=== PATIENT | female | born 1945 | race Caucasian/White ===

== ENCOUNTER → 2019-11-19 12:42 | Outpatient (CLI) | payer MEDICARE, SELFPAY ==
--- NOTE | ~2019-11-19 | MM_ITS ---
EXAMINATION: MM screening [facility] BI w johnie HISTORY: Screening mammogram TECHNIQUE: Craniocaudal and mediolateral oblique 3-D tomosynthesis images were obtained and synthetic 2-D images were generated. CAD analysis was submitted and interpreted. COMPARISON: 09/15/2018, 08/15/2017, 07/18/2016 BREAST PARENCHYMAL COMPOSITION: The breasts are almost entirely fatty. FINDINGS: RIGHT BREAST: A possible mass is present in the posterior third of the upper inner breast best apprec iated 9 cm from the nipple. LEFT BREAST: There is no evidence of suspicious mass, calcification, or architectural distortion to s uggest malignancy. There has been no significant interval change. IMPRESSION: 1. Possible right breast mass. 2. Additional mammographic views and possible breast ultrasound are recommended. BI-RADS Category 0: Incomplete: Needs additional imaging evaluation. Reviewed, dictated and finalized at location A. ING TECHNICIAN IMPRESSION: 1. Possible right breast mass. 2. Additional mammographic views and possible breast ultrasound are recommended . BI-RADS Category 0: Incomplete: Needs additional imaging evaluation.
== END ==
PROVIDERS: PCP Family Medicine; Visit Provider Obstetrics & Gynecology
DX: Z12.31 Encounter for screening mammogram for malignant neoplasm of breast (principal); R92.8 Other abnormal and inconclusive findings on diagnostic imaging of breast
CPT/HCPCS: 77063; 77067

== ENCOUNTER → 2019-12-04 08:50 | Outpatient (CLI) | payer MEDICARE, SELFPAY ==
--- NOTE | ~2019-12-04 | MMUS_ITS ---
EXAMINATION: MM diagnostic mammo unilat RT, US breast RT limited HISTORY: Possible mass in posterior third of upper inner right breast on 11/19/2019 screening mammogra m examination TECHNIQUE: Additional 3-D tomosynthesis images of right breast were performed and synthetic 2-D image s were generated. CAD analysis was submitted and interpreted. High resolution upper inner quadrant ri t breast ultrasound was performed. COMPARISON: 08/15/2017 bilateral digital screening mammogram FINDINGS: MAMMOGRAPHIC FINDINGS: An approximately 2.7 mm ill-defined focal area of contiguous small linear densities is noted posterio rly in the upper inner quadrant of the right breast. Ultrasound correlation is recommended. ULTRASOUND: There is no sonographic correlate for the 2.7 mm ill-defined area of contiguous small linear densitie s noted posteriorly in the upper inner quadrant of the right breast. Circumscribed 4.4 x 8.4 x 4.6 mm uniformly hyperechoic lesion is noted superficially in the right padmini ast at 2:00 9 cm from the nipple, consistent with a benign lipoma. IMPRESSION: 1. No mammographic evidence of malignancy 2. 6 month follow up diagnostic right mammogram is recommended BIRADS 3: Probably benign Reviewed, dictated and finalized at location A. D SERVICE ENGINEER IMPRESSION: 1. No mammographic evidence of malignancy 2. 6 month follow up diagnostic right mammogram is recommended BIRADS 3: Probably benign
== END ==
PROVIDERS: Visit Provider Obstetrics & Gynecology
DX: R92.8 Other abnormal and inconclusive findings on diagnostic imaging of breast (principal)
CPT/HCPCS: 76642; 77065

== ENCOUNTER → 2020-07-08 09:15 | Outpatient (CLI) | payer MEDICARE, SELFPAY ==
--- NOTE | ~2020-07-08 | MM_ITS ---
EXAMINATION: MM diagnostic [facility] RT w johnie HISTORY: Follow-up right breast asymmetry TECHNIQUE: Additional 3-D tomosynthesis images of the right breast were performed and synthetic 2-D i mages were generated. CAD analysis was submitted and interpreted. COMPARISON: Comparison to multiple prior studies sequentially, with oldest reviewed study dated 02/2015. BREAST PARENCHYMAL COMPOSITION: Breast composition is almost entirely fatty. FINDINGS: There are no suspicious masses, calcifications or architectural distortion in the right padmini ast to suggest malignancy. IMPRESSION: 1. No mammographic evidence for malignancy in the right breast. 2. Routine yearly screening mammogram and regular clinical breast examination are recommended. BI-RADS Category 1: Negative Reviewed, dictated and finalized at location A. IMPRESSION: 1. No mammographic evidence for malignancy in the right breast. 2. Routine yearly screening mammogram and regular clinical breast examination a re recommended. BI-RADS Category 1: Negative
== END ==
PROVIDERS: PCP Family Medicine; Visit Provider Obstetrics & Gynecology
DX: R92.8 Other abnormal and inconclusive findings on diagnostic imaging of breast (principal)
CPT/HCPCS: 77061; 77065; G0279

== ENCOUNTER → 2021-10-13 13:17 | Outpatient (CLI) | payer MEDICARE, SELFPAY ==
--- NOTE | ~2021-10-13 | MM_ITS ---
EXAMINATION: MM screening [facility] BI w johnie HISTORY: Screening TECHNIQUE: Craniocaudal and mediolateral oblique 3-D tomosynthesis images were obtained and synthetic 2-D images were generated. CAD analysis was submitted and interpreted. COMPARISON: Comparison to multiple prior studies sequentially, with oldest reviewed study dated 06/30. BREAST PARENCHYMAL COMPOSITION: There are scattered areas of fibroglandular density. FINDINGS: There is no evidence of suspicious mass, calcification, or architectural distortion to sugg est malignancy in either breast. There has been no suspicious interval change. IMPRESSION: 1. No mammographic evidence of malignancy. 2. Recommend routine screening mammography in one year. BI-RADS Category 1: Negative Reviewed, dictated and finalized at location A. OR WINDOWS ENGINEER
== END ==
PROVIDERS: PCP Family Medicine; Visit Provider Obstetrics & Gynecology
DX: Z12.31 Encounter for screening mammogram for malignant neoplasm of breast (principal)
CPT/HCPCS: 77063; 77067

== ENCOUNTER → 2022-10-15 09:16 | Outpatient (CLI) | payer MEDICARE, SELFPAY ==
--- NOTE | ~2022-10-15 | MM_ITS ---
EXAMINATION: MM screening [facility] BI w johnie HISTORY: Screening mammogram TECHNIQUE: Craniocaudal and mediolateral oblique 3-D tomosynthesis images were obtained and synthetic 2-D images were generated. CAD analysis was submitted and interpreted. COMPARISON: 10/13/2021, 07/08/2020, 12/04/2019, 11/19/2019 BREAST PARENCHYMAL COMPOSITION: The breasts are almost entirely fatty. FINDINGS: No suspicious mass, calcification, or architectural distortion are identified in either padmini ast to suggest malignancy. There has been no suspicious interval change. IMPRESSION: 1. No mammographic evidence of malignancy. 2. Recommend routine screening mammography in one year. BI-RADS Category 1: Negative Reviewed, dictated and finalized at location A. RINTENDENT OPERATIONS DIVISION
== END ==
PROVIDERS: PCP Obstetrics & Gynecology; Visit Provider Family Medicine
DX: Z12.31 Encounter for screening mammogram for malignant neoplasm of breast (principal)
CPT/HCPCS: 77063; 77067

== ENCOUNTER → 2023-03-19 09:26 | Outpatient (CLI) | payer MEDICARE, SELFPAY ==
--- NOTE | ~2023-03-19 | MR_ITS ---
MRI of the brain Clinical History: Hallucinations Technique: Axial and sagittal T1-weighted images were acquired. These were followed by axial T2-weigh clari, diffusion weighted, gradient, and FLAIR images. Findings: There is no acute infarct, intracranial hemorrhage, or mass lesion. There are mild to moder ate chronic microvascular ischemic changes in the periventricular white matter bilaterally. Ventricles and subarachnoid spaces are minimally dilated. Orbits are unremarkable. Paranasal sinuses and mastoid air cells are clear. Major intracranial flow voids are intact. Sagittal midline structures are intact. IMPRESSION: No acute intracranial abnormality seen. Mild to moderate chronic microvascular ischemic changes. Reviewed, dictated and finalized at [facility].
== END ==
PROVIDERS: PCP Family Medicine; Visit Provider Family Medicine
DX: R44.3 Hallucinations, unspecified (principal)
CPT/HCPCS: 70551

== ENCOUNTER 2023-11-02 09:36 | Emergency (ER) | payer MEDICARE, SELFPAY ==
[2023-11-02 09:38] VITALS: BP 153/72; PULSE 80; RESP 16; TEMP 36.3; O2SAT 93
--- NOTE | 2023-11-02 09:46 | ECG_ITS ---
Measurements Intervals [place] Rate: 75 P: 58 VT: 170 QRS: 59 QRSD: 89 T: 53 QT: 379 QTc: 423 Interpretive Statements SINUS RHYTHM NO PREVIOUS ECG AVAILABLE FOR COMPARISON Electronically Signed On 11-02-2023 12:35:34 [employer] by Aki Elizabeth M.D.
--- NOTE | 2023-11-02 10:28 | ED.GENADULT ---
HPI - General Adult General Chief complaint: Unspecified Stated complaint: took 5 days of meds Time Seen by Provider: 11/02/23 09:38 History of Present Illness HPI narrative: 78-year-old female present to the emergency department for evaluation after taking 5 days worth of medications. Patient took 5 days of her morning meds because she felt that it was a good idea. Patient took 5 of her with Toprol mg, she also took vitamin D baby aspirin and centrum vitamin. Patient denies any complaints at this time. Patient did tell her daughter that she did this. Related Data Home Medications Medication Instructions Recorded Confirmed albuterol sulfate 90 mcg/actuation 1 puff inhalation Q4H PRN 03/05/23 09/17/23 aerosol inhaler fluticasone 250 mcg-salmeterol 50 1 inh inhalation BID 03/05/23 09/17/23 mcg/dose blistr powdr for inhalation (Advair Diskus) Allergies Allergy/AdvReac Type Severity Reaction Status Date / Time levofloxacin Allergy Unknown Other Verified 09/17/23 15:05 Review of Systems Review of Systems: All systems reviewed & are unremarkable except as noted in HPI and below PMFSH Past Medical History Medical History Chronic obstructive pulmonary disease, unspecified Disorder of bone density and structure, unspecified Essential (primary) hypertension Hyperlipidemia, unspecified Lewy body dementia Social History Social History Smoking status: Former smoker Alcohol intake: never Substance use: never Substance use type: does not use Lack of Transportation: No Lack of Food: Never True Current Housing: I Have Housing Concerned About Future Housing: No Difficulty Paying Gas/Electric Bills: No Difficulty Paying for Meds: No Currently Unemployed: YES Education: High School Diploma/GED Living arrangements: with family Occupation/Education: retired Gender identity (if verbalized by the patient): Female Sexual Orientation (if Verbalized by the Patient): Straight or Heterosexual Exam Narrative: APPEARANCE: Well appearing, no pain, no distress, well-nourished. HEAD: normocephalic, atraumatic. EYES: PERRLA/EOMI, conjunctivae clear. NOSE: Normal no drainage EARS:TMS clear with good light reflex. THROAT: Pharynx clear, no exudate. NECK: Supple. No adenopathy, no masses. RESPIRATORY: Airway patent, respirations nonlabored. Clear to auscultation bilaterally, no rales, rhonchi, wheezing. CARDIOVASCULAR: Regular rate and rhythm without murmurs rubs or gallops. ABDOMINAL: Soft, nontender, nondistended, normal bowel sounds MUSCULOSKELETAL: Moves all extremities. Strength/ROM intact, No edema, No calf tenderness. NEURO: Alert. Cranial nerves II through XII intact. Grossly intact SKIN: Warm, dry. Normal Color Course Course Emergency Course: 78-year-old female presenting to the ED for evaluation after taking multiple doses of her morning meds. Poison Control was consulted and they recommended observing for 3-6 hours. Patient was observed for 7 hours after time of ingestion. Patient states he will not dizzy again and was encouraged to find a solution to help secure the patient's meds. Vital Signs Vital signs: Vital Signs Temperature 97.4 F L 11/02/23 09:38 Pulse Rate 80 11/02/23 09:38 Respiratory Rate 16 11/02/23 09:38 Blood Pressure 153/72 H 11/02/23 09:38 Pulse Oximetry 93 11/02/23 09:38 Oxygen Delivery Room Air 11/02/23 09:38 Temperature 97.4 F L 11/02/23 09:38 Pulse Rate 66 11/02/23 13:53 Respiratory Rate 18 11/02/23 13:53 Blood Pressure 128/66 11/02/23 13:53 Pulse Oximetry 93 11/02/23 13:53 Oxygen Delivery Room Air 11/02/23 09:38 Medical Decision Making Vital Signs Vital Signs: Vital Signs Temperature 97.4 F L 11/02/23 09:38 Pulse Rate 80 11/02/23 09:38 Respiratory Rate 16 11/02/23 09:38 Blood Pressure
[2023-11-02 10:36] LABS: Basophils Percent Auto 0.9 % (0.2-1.2); Eosinophils Absolute Auto 0.3 K/mm3 (0-0.3); Eosinophils Percent Auto 7.3 % (0-4.4); Hematocrit 41.9 % (37.0-47.0); Hemoglobin 13.4 g/dL (12.0-15.0); Immature Granulocyte Absolute 0.01 K/mm3 (0.00-0.031); Immature Granulocyte Percent A 0.2 % (0-0.5); Lymphocytes Absolute Auto 0.85 K/mm3 (0.9-3.2); Lymphocytes Percent Auto 18.8 % (18.3-44.2); Mean Corpuscular Hemoglobin 32.4 pg (26-34); Mean Corpuscular Volume 101.2 fl (80-100); Mean Platelet Volume 10.6 fl (7.4-10.4); Monocytes Absolute Auto 0.6 K/mm3 (0.1-0.6); Monocytes Percent Auto 13.3 % (2.6-8.5); Neutrophils Absolute Auto 2.7 K/mm3 (1.3-6.7); Neutrophils Percent Auto 59.5 % (45.5-73.1); Platelet Count Result 151 k/mm3 (150-375); Red Blood Count 4.14 M/mm3 (4.2-5.4); Red Cell Distribution Width 13.5 % (11.5-14.5); White Blood Count 4.5 K/mm3 (4.5-10.0)
--- NOTE | 2023-11-02 10:36 | PC.NURSE ---
[place] poison control called spoke with Rufino she said that recommended daily dose is between 10mg-400mg daily, the peak is 3 hours after ingestion and half life is 3-7h after ingestion. Per poison control if pt is asymptomatic no interventions need, just monitor. They also recommended no multivitamins for a week.
[2023-11-02 10:40] VITALS: BP 144/88; PULSE 64; RESP 17; O2SAT 92
[2023-11-02 10:46] LABS: Alanine Aminotransferase 25 U/L (6-35); Albumin Level 3.8 g/dL (3.5-5.1); Alkaline Phosphatase 66 U/L (38-126); Anion Gap 4 mmol/L (8-16); Aspartate Amino Transferase 25 U/L (14-36); Bilirubin,Total 0.5 mg/dL (0.2-1.3); Blood Urea Nitrogen 24 mg/dL (7-17); Carbon Dioxide 32 mmol/L (22-30); Chloride 104 mmol/L (98-107); Estimated CRCL calculation 48 ml/min; Estimated Glomerular Filt Rate > 60; Glucose 112 mg/dL (65-110); Potassium 4.4 mmol/L (3.4-5.0); Sodium 140 mmol/L (137-145)
[2023-11-02 10:47] LABS: Acetaminophen < 10 ug/mL (10-30); Ethanol < 10 mg/dL (<10); Salicylate 1.7 mg/dL (2-20)
[2023-11-02 11:37] VITALS: BP 145/80; PULSE 62; RESP 20; O2SAT 92
[2023-11-02 13:01] VITALS: BP 106/78; PULSE 64; RESP 20; O2SAT 94
[2023-11-02 13:53] VITALS: BP 128/66; PULSE 66; RESP 18; O2SAT 93
== END 2023-11-02 14:09 | disposition home or self-care (01) ==
PROVIDERS: Emergency Provider Emergency Medicine; PCP Family Medicine
DX: T44.7X1A Poisoning by beta-adrenoreceptor antagonists, accidental (unintentional), initial encounter (principal); T45.2X1A Poisoning by vitamins, accidental (unintentional), initial encounter; T39.011A Poisoning by aspirin, accidental (unintentional), initial encounter; J44.9 Chronic obstructive pulmonary disease, unspecified; I10 Essential (primary) hypertension; E78.5 Hyperlipidemia, unspecified; G31.83 Neurocognitive disorder with Lewy bodies; F02.80 Dementia in other diseases classified elsewhere, unspecified severity, without behavioral disturbance, psychotic disturbance, mood disturbance, and anxiety; M85.9 Disorder of bone density and structure, unspecified; Z87.891 Personal history of nicotine dependence
CPT/HCPCS: 36415; 80053; 80307; 85025; 93005; 99283

== ENCOUNTER 2024-04-14 05:52 | Emergency (ER) | payer MEDICARE, SELFPAY ==
--- NOTE | ~2024-04-14 | CT_ITS ---
CT head without contrast Indication: Altered mental status Technique: Serial scans were obtained through the brain without the administration of contrast. Dose reduction technique was used on this scan by utilizing automated exposure control and iterative recon struction technique. The dose-length product (DLP) was 1286.33 mGy-cm. Findings: There is no evidence of intracranial hemorrhage, mass lesion, or acute infarct. The ventri cles and subarachnoid spaces are dilated, consistent with mild to moderate atrophy. Low attenuation regions are seen within the periventricular white matter bilaterally, likely representing changes fro m chronic microvascular ischemic disease. There is no evidence of edema, mass effect or midline shif t. The visualized paranasal sinuses and mastoid air cells are clear. Impression: No intracranial hemorrhage, mass, or acute infarct. Atrophy and chronic white matter changes, as above. Reviewed, dictated and finalized at location M. Impression: No intracranial hemorrhage, mass, or acute infarct. Atrophy and chronic white matter changes, as above.
--- NOTE | ~2024-04-14 | XR_ITS ---
Portable chest x-ray Comparison: None Clinical History: Altered mental status Findings: There is patchy left basilar airspace disease, suspicious for pneumonia. Right lung demons trates right upper lobe probable scarring. Cardiomediastinal silhouette is stable. Bones and soft ti ssues are unremarkable. Impression: Left lower lobe pneumonia. Suspected underlying COPD with right apical scarring. Reviewed, dictated and finalized at location . Impression: Left lower lobe pneumonia. Suspected underlying COPD with right apical scarring.
[2024-04-14 05:51] VITALS: BP 159/80; PULSE 69; RESP 16; TEMP 36.6; O2SAT 92
--- NOTE | 2024-04-14 06:02 | PC.NURSE ---
daughter at bedside
--- NOTE | 2024-04-14 06:12 | ECG_ITS ---
Test Date: 2024-04-14 06:54:37 Measurements Intervals [place] Rate: 67 P: 28 ME: 146 QRS: 51 QRSD: 80 T: 50 QT: 398 QTc: 421 Interpretive Statements SINUS RHYTHM LOW QRS VOLTAGE IN PRECORDIAL LEADS BASELINE ARTIFACT- I, II, III, AVR, AVL, V6 BORDERLINE ECG No previous ECG available for comparison Electronically Signed On 04-14-2024 07:03:12 CDT by Christian Hoyt D.O.
--- NOTE | 2024-04-14 06:30 | PC.NURSE ---
Pt refusing all care, EDP lipsmeyer at bedside.
[2024-04-14] MEDS: LORazepam INJ (*CRX) 2 MG/ML VIAL 1 MG IM (06:40)
[2024-04-14 06:58] LABS: Basophils Percent Auto 0.6 % (0.2-1.2); Eosinophils Absolute Auto 0.2 K/mm3 (0-0.3); Eosinophils Percent Auto 3.8 % (0-4.4); Hemoglobin 13.8 g/dL (12.0-15.0); Immature Granulocyte Absolute 0.02 K/mm3 (0.00-0.031); Immature Granulocyte Percent A 0.3 % (0-0.5); Immature Platelet Fraction Pct 6.2 % (0.9-11.2); Lymphocytes Absolute Auto 0.77 K/mm3 (0.9-3.2); Lymphocytes Percent Auto 12.3 % (18.3-44.2); Mean Corpuscular HGB Conc 32.9 g/dl (32-36); Mean Corpuscular Hemoglobin 33.2 pg (26-34); Monocytes Absolute Auto 0.8 K/mm3 (0.1-0.6); Monocytes Percent Auto 12.1 % (2.6-8.5); Neutrophils Absolute Auto 4.5 K/mm3 (1.3-6.7); Neutrophils Percent Auto 70.9 % (45.5-73.1); Platelet Count Result 139 k/mm3 (150-375); Red Blood Count 4.16 M/mm3 (4.2-5.4); Red Cell Distribution Width 13.5 % (11.5-14.5); White Blood Count 6.3 K/mm3 (4.5-10.0)
[2024-04-14 07:00] VITALS: BP 153/78; PULSE 69; RESP 16; TEMP 36.6; O2SAT 100
[2024-04-14] MEDS: SODIUM CHLORIDE 0.9% IV 1,000 ML 999 ML IV CONT (07:04)
--- NOTE | 2024-04-14 07:06 | ED.GENADULT ---
HPI - General Adult General Chief complaint: Altered Mental Status <Sachin Hopper MD - Last Filed: 04/14/24 07:09> Stated complaint: HALLUCINATIONS, OUT OF MEDS <Sachin Hopper MD - Last Filed: 04/14/24 07:09> Time Seen by Provider: 04/14/24 06:00 <Sachin Hopper MD - Last Filed: 04/14/24 07:09> History of Present Illness HPI narrative: Patient 78-year-old female who presents emergency department with chief complaint of visual hallucinations patient has been seeing people in her house called police and of dot that there were people in the house of the patient has history of probable Lewy body dementia and at the family's been having a difficult time controlling her hallucinations. <Sachin Hopper MD - Last Filed: 04/14/24 07:09> Related Data Home medications: Home Medications Medication Instructions Recorded Confirmed albuterol sulfate 90 mcg/actuation 1 puff inhalation Q4H PRN 03/05/23 03/10/24 aerosol inhaler cholecalciferol (vitamin D3) 10 10 mcg PO DAILY 03/10/24 03/10/24 mcg (400 unit) capsule tcznetkx-rin-ciiki ac 400 1 tablet PO DAILY 03/10/24 03/10/24 mcg-calcium carb 500 mg-vit K1 20 mcg tablet (Women's 50 Plus Multivitamin) <Sachin Hopper MD - Last Filed: 04/14/24 07:09> Allergies/adverse reactions: Allergies Allergy/AdvReac Type Severity Reaction Status Date / Time levofloxacin Allergy Unknown Other Verified 11/21/23 11:05 <Sachin Hopper MD - Last Filed: 04/14/24 07:09> Review of Systems Review of Systems: A 10 system review of systems was completed on the patient and is negative except for what is stated in the HPI. Nursing and ancillary documentation was reviewed. <Sachin Hopper MD - Last Filed: 04/14/24 07:09> PMFSH Past Medical History Medical History: Medical History Chronic obstructive pulmonary disease, unspecified Disorder of bone density and structure, unspecified Essential (primary) hypertension Hyperlipidemia, unspecified Lewy body dementia <Sachin Hopper MD - Last Filed: 04/14/24 07:09> Social History Social History: Social History Smoking status: Former smoker Alcohol intake: never Substance use: never Substance use type: does not use Lack of Transportation: No Lack of Food: Never True Current Housing: I Have Housing Concerned About Future Housing: No Difficulty Paying Gas/Electric Bills: No Difficulty Paying for Meds: No Currently Unemployed: YES Education: High School Diploma/GED Living arrangements: with family Occupation/Education: retired Gender identity (if verbalized by the patient): Female Sexual Orientation (if Verbalized by the Patient): Straight or Heterosexual <Sachin Hopper MD - Last Filed: 04/14/24 07:09> Exam Narrative: GENERAL: Well-appearing, well-nourished, and in no acute distress. HEAD: Normocephalic, atraumatic. EYES: PERRLA and EOMI. ENT: Nares clear, no rhinorrhea or epistaxis. Mucous membranes moist. NECK: Supple. CHEST: Clear to auscultation. No respiratory distress. HEART: Regular rate and rhythm. No murmur heard. Normal peripheral pulses. ABDOMEN: Soft, nontender, nondistended, normal active bowel sounds. EXTREMITIES: Normal range of motion. No edema. SKIN: Warm, dry, no rash. NEURO: No focal deficits. Alert and oriented x2. PSYCH: Normal mood and affect. <Sachin Hpoper MD - Last Filed: 04/14/24 07:09> Course Course Emergency Course: ZYCH 1000: Patient signed out to me pending completion of her workup. Workup negative outside 6-10 white blood cells urine. I discussed the results with the patient's daughter her main priority is getting something to calm the patient down she starts to become aggressive du
[2024-04-14 07:07] LABS: Lactic Acid Reflex 0.8 mmol/L (0.7-2.0)
[2024-04-14 07:14] LABS: Prothrombin Time 13.8 Seconds (11.1-14.7)
[2024-04-14 07:15] LABS: Partial Thromboplastin Time 32.1 Seconds (22.3-36.8)
[2024-04-14 07:18] LABS: Ethanol < 10 mg/dL (<10)
[2024-04-14 07:22] LABS: Alanine Aminotransferase 23 U/L (6-35); Albumin Level 4.2 g/dL (3.5-5.1); Alkaline Phosphatase 75 U/L (38-126); Anion Gap 9 mmol/L (4-12); Aspartate Amino Transferase 28 U/L (14-36); Bilirubin,Total 0.9 mg/dL (0.2-1.3); Blood Urea Nitrogen 26 mg/dL (7-17); Calcium 8.8 mg/dL (8.4-10.2); Carbon Dioxide 27 mmol/L (22-30); Chloride 103 mmol/L (98-107); Estimated CRCL calculation 50 ml/min; Estimated Glomerular Filt Rate > 60; Glucose 108 mg/dL (65-110); Potassium 4.3 mmol/L (3.4-5.0); Sodium 139 mmol/L (137-145)
[2024-04-14 07:35] LABS: Troponin I < 0.012 ng/mL (0.000-0.034)
[2024-04-14 08:00] VITALS: BP 137/79; PULSE 71; RESP 16; TEMP 36.6; O2SAT 94
[2024-04-14 08:42] LABS: Appearance Urine Clear (Clear); Bacteria Urine None Seen /hpf; Bilirubin Urine Negative (Negative); Blood Urine Negative (Negative); Color Urine Yellow (Yellow); Glucose Urine UA Negative (Negative); Ketones Urine Negative (Negative); Leukocyte Esterase Ur Trace LEU/UL (Negative); Nitrate Urine Negative (Negative); Non Pathogenic Casts 0-2; Protein Urine Negative (Negative); RBC Urine 0-2 /hpf (0-2); Specific Grav Ur 1.019 (1.001-1.035); Squamous Epithelial Cell Urine None Seen /hpf (Few); Urobilinogen Urine 0.2 mg/dL (<2.0); pH Urine 5.5 (5.0-9.0)
[2024-04-14 08:51] LABS: Add Urine Microscopic? YES
[2024-04-14 09:00] VITALS: BP 128/73; PULSE 68; RESP 16; TEMP 36.6; O2SAT 95
[2024-04-14 10:00] VITALS: BP 126/73; PULSE 70; RESP 16; TEMP 36.6; O2SAT 93
== END 2024-04-14 10:20 | disposition home or self-care (01) ==
PROVIDERS: Emergency Provider Emergency Medicine; PCP Family Medicine
DX: N39.0 Urinary tract infection, site not specified (principal); F02.80 Dementia in other diseases classified elsewhere, unspecified severity, without behavioral disturbance, psychotic disturbance, mood disturbance, and anxiety; G31.83 Neurocognitive disorder with Lewy bodies; J44.9 Chronic obstructive pulmonary disease, unspecified; I10 Essential (primary) hypertension; E78.5 Hyperlipidemia, unspecified; R94.31 Abnormal electrocardiogram [ECG] [EKG]; Z79.899 Other long term (current) drug therapy
CPT/HCPCS: 36415; 70450; 71045; 80053; 80307; 81001; 83605; 84484; 85025; 85055; 85610; 85730; 87086; 93005; 96360; 96372; 99284; J2060; J7030

== ENCOUNTER 2024-04-15 10:43 | Outpatient (CLI) | payer MEDICARE, SELFPAY | END 2024-04-15 10:44 | disposition home or self-care (01) | LOC: ANHAUDASC 10:44 | PROVIDERS: PCP Family Medicine; Visit Provider Family Medicine | DX: H91.90 Unspecified hearing loss, unspecified ear (principal) | CPT/HCPCS: 92567 ==

== ENCOUNTER 2024-09-08 09:20 | Emergency (ER) | payer MEDICARE, SELFPAY ==
[2024-09-08] VITALS (15 sets, daily range): BP systolic 134–156; BP diastolic 63–87; PULSE 68–98; RESP 18–27; TEMP 36.3; O2SAT 87–96
--- NOTE | ~2024-09-08 | XR_ITS ---
XR chest 1V portable Ordering provider: Grisel Ramirez MD History: 78 years Female with . hypoxia, URI . Comparison: None. FINDINGS: MEDIASTINUM: The cardiac silhouette is slightly enlarged. LUNGS: No effusions or pneumothorax. Opacification in the left lower lobe area. Underlying fibrotic c hanges. OTHER: No free air under the diaphragm. Degenerative changes of the spine. IMPRESSION: Atelectasis versus pneumonia in the left lower lobe area. Underlying fibrotic changes. Reviewed, dictated and finalized at location [facility]. [employer] [facility] IMPRESSION: Atelectasis versus pneumonia in the left lower lobe area. Underlying fibrotic c hanges.
[2024-09-08] MEDS: ALBUTEROL SULFATE (*SP) INHALER 4 PUFF INHALATION (11:19)
[2024-09-08 11:25] LABS: Basophils Percent Auto 0.9 % (0.2-1.2); Eosinophils Absolute Auto 0.2 K/mm3 (0-0.3); Eosinophils Percent Auto 3.8 % (0-4.4); Hematocrit 41.1 % (37.0-47.0); Hemoglobin 13.2 g/dL (12.0-15.0); Immature Granulocyte Absolute 0.03 K/mm3 (0.00-0.031); Immature Granulocyte Percent A 0.6 % (0-0.5); Lymphocytes Absolute Auto 0.73 K/mm3 (0.9-3.2); Lymphocytes Percent Auto 15.6 % (18.3-44.2); Mean Corpuscular HGB Conc 32.1 g/dl (32-36); Mean Corpuscular Hemoglobin 31.9 pg (26-34); Mean Corpuscular Volume 99.3 fl (80-100); Monocytes Absolute Auto 1.1 K/mm3 (0.1-0.6); Monocytes Percent Auto 24.1 % (2.6-8.5); Neutrophils Absolute Auto 2.6 K/mm3 (1.3-6.7); Platelet Count Result 186 k/mm3 (150-375); Red Blood Count 4.14 M/mm3 (4.2-5.4); Red Cell Distribution Width 14.1 % (11.5-14.5); White Blood Count 4.7 K/mm3 (4.5-10.0)
[2024-09-08] MEDS: predniSONE 20 MG TABLET 40 MG PO (11:35)
[2024-09-08 11:40] LABS: Anion Gap 1 mmol/L (4-12); Blood Urea Nitrogen 19 mg/dL (7-17); Calcium 8.8 mg/dL (8.4-10.2); Carbon Dioxide 34 mmol/L (22-30); Chloride 100 mmol/L (98-107); Estimated CRCL calculation 51 ml/min; Estimated Glomerular Filt Rate > 60; Glucose 98 mg/dL (65-110); Potassium 4.1 mmol/L (3.4-5.0); Sodium 135 mmol/L (137-145)
[2024-09-08 11:48] LABS: NT Pro B Type Natriuretic Pept 489 pg/mL (19.9-100)
--- NOTE | 2024-09-08 12:06 | ECG_ITS ---
Test Date: 2024-09-08 14:34:50 Measurements Intervals [place] Rate: 76 P: 51 RI: 173 QRS: 57 QRSD: 86 T: 56 QT: 382 QTc: 431 Interpretive Statements SINUS RHYTHM Compared to ECG 04/14/2024 06:54:37 No significant changes Electronically Signed On 09-09-2024 11:47:02 MULTIPLE KNIFE EDGE TRIMMER OPERATOR by Lior Martell
[2024-09-08] MEDS: cefTRIAXone 2 GM/NS 100 ML 2 GM/100 ML BAG IVPB (12:18)
[2024-09-08] MEDS: DOXYCYCLINE HYCLATE 100 MG TABLET PO (12:21)
[2024-09-08 12:28] LABS: Lactic Acid Reflex 1.2 mmol/L (0.7-2.0)
--- NOTE | 2024-09-08 13:01 | ED.URI ---
HPI - URI/Sore Throat General Chief Complaint: Upper Respiratory Infection Stated Complaint: hypoxic on RA, URI sx Time Seen by Provider: 09/08/24 10:52 History of Present Illness HPI Narrative: Patient presents here after having several days of URI symptoms, when EMS arrived she was found have low oxygen requiring nasal cannula. Any chest pain, does endorse cough and some shortness of breath Related Data Home Medications ?Medication ?Instructions ?Recorded ?Confirmed ?Last Taken ?Type albuterol sulfate 90 mcg/actuation 1 puff inhalation Q4H PRN 03/05/23 04/30/24 Unknown History aerosol inhaler cholecalciferol (vitamin D3) 10 10 mcg PO DAILY 03/10/24 04/30/24 Unknown History mcg (400 unit) capsule ldbnbsgj-pou-rqgbn ac 400 1 tablet PO DAILY 03/10/24 04/30/24 Unknown History mcg-calcium carb 500 mg-vit K1 20 mcg tablet (Women's 50 Plus Multivitamin) Allergies Allergy/AdvReac Type Severity Reaction Status Date / Time levofloxacin Allergy Unknown Other Verified 09/08/24 09:31 Review of Systems Review of Systems: All systems reviewed & are unremarkable except as noted in HPI and below PMFSH Past Medical History Medical History Chronic obstructive pulmonary disease, unspecified Disorder of bone density and structure, unspecified Essential (primary) hypertension Hyperlipidemia, unspecified Lewy body dementia Social History Social History Smoking status: Former smoker Alcohol intake: never Substance use: never Substance use type: does not use Lack of Transportation: No Lack of Food: Never True Current Housing: I Have Housing Concerned About Future Housing: No Difficulty Paying Gas/Electric Bills: No Difficulty Paying for Meds: No Currently Unemployed: YES Education: High School Diploma/GED Living arrangements: with family Occupation/Education: retired Gender identity (if verbalized by the patient): Female Sexual Orientation (if Verbalized by the Patient): Straight or Heterosexual Exam Narrative: EXAMINATION OF ORGAN SYSTEMS/BODY AREAS: Constitutional: Vital signs per nursing GENERAL:[No acute distress, non-toxic appearing.] HEAD: Normal with no signs of head trauma. EYES: EOMI, conjunctiva normal ENT: Hearing grossly intact LUNGS: Nonlabored breathing. coarse lung sounds HEART: [Regular rate and rhythm] ABD: [Soft], [nontender to palpation] EXT: Normal range of motion SKIN: [No rashes or lesions.] NEURO: [Alert and oriented x 3. No gross focal sensory or strength deficits.] PSYCH: Normal affect Course Vital Signs Vital signs: Vital Signs Temperature 97.3 F L 09/08/24 09:27 Pulse Rate 70 09/08/24 09:27 Respiratory Rate 20 09/08/24 09:27 Blood Pressure 134/63 09/08/24 09:27 Pulse Oximetry 96 09/08/24 09:27 Temperature 97.3 F L 09/08/24 09:27 Pulse Rate 70 09/08/24 14:35 Respiratory Rate 23 H 09/08/24 14:30 Blood Pressure 151/69 H 09/08/24 14:01 Pulse Oximetry 95 09/08/24 14:35 Oxygen Delivery Nasal Cannula 09/08/24 14:35 Oxygen Flow Rate 2 09/08/24 14:35 MDM - URI/Sore Throat MDM Narrative Medical decision making narrative: a 78-year-old female presents here with URI symptoms, was found to be hypoxic on room air, she does have some wheezing and coarse lung sounds, I will treat her for COPD exacerbation and also rule out pneumonia, did consider PE however she has no tachycardia, DVT symptoms. on my independent interpretation ECG shows normal sinus rhythm rate 76, normal NC, QRS, QTC, ST elevations or depression chest x-ray showing possible left lower lobe pneumonia labs within acceptable limits. oxygen arranged, antibiotics started, and will be discharged with prescription and close follow-up to PCP with return precautions. At time of discharge she is very well appearing, at rest with 0.5O2 NC she is saturating 94%. Lab Data 09/08/24 11:15 09/08/24 11:15 Labs: Lab Results 09/08/24 09/08/24 Range/Units 11:15 12:09 WBC 4.7 (4.5-10.0) K/mm3 RBC 4.14 L (4.2-5.4) M/mm3 Hgb 13.2 (12.0-15.0) g/dL Hct 41.1 (37.0-47.0) % MCV 99.3 (80-100) fl MCH 31.9 (26-34) pg MCHC 32.1 (32-36) g/dl RDW 14.1 (11.5-14.5) % Plt Count 186 (150-375) k/mm3 MPV 10.0 (7.4-10.4) fl Immature Gran % (Auto) 0.6 H (0-0.5) % Neut % (Auto) 55.0 (45.5-73.1) % Lymph % (Auto) 15.6 L (18.3-44.2) % [place] % (Auto) 24.1 H (2.6-8.5) % Eos % (Auto) 3.8 (0-4.4) % Baso % (Auto) 0.9 (0.2-1.2) % Lymph # (Auto) 0.73 L (0.9-3.2) K/mm3 [place] # (Auto) 1.1 H (0.1-0.6) K/mm3 Eos # (Auto) 0.2 (0-0.3) K/mm3 Baso # (Auto) 0.0 (0.0-0.1) K/mm3 Abs Immat Gran (auto) 0.03 (0.00-0.031) K/mm3 Absolute Neuts (auto) 2.6 (1.3-6.7) K/mm3 Absolute Nucleated RBC 0.000 (0.0-0.012) K/mm3 Nucleated RBC % 0.0 (0.0-0.2) % Sodium 135 L (137-145) mmol/L Potassium 4.1 (3.4-5.0) mmol/L Chloride 100 (98-107) mmol/L Carbon Dioxide 34 H (22-30) mmol/L Anion Gap 1 L (4-12) mmol/L BUN 19 H (7-17) mg/dL Creatinine 0.80 (0.7-1.0) mg/dL Estim Creat Clear Calc 51 ml/min Estimated GFR > 60 (59 - ) Glucose 98 (65-110) mg/dL Lactic Acid 1.2 (0.7-2.0) mmol/L Calcium 8.8 (8.4-10.2) mg/dL NT-Pro-B Natriuret Pep 489 H (19.9-100) pg/mL Discharge Plan Discharge Clinical Impression: Acute hypoxemic respiratory failure, Pneumonia Chronic obstructive pulmonary disease, unspecified Qualifiers: COPD type: unspecified COPD Qualified Code(s): J44.9 - Chronic obstructive pulmonary disease, unspecified Patient Disposition: Home, Self-Care Condition: Stable Instructions: Antibiotic Form, Pneumonia (ED) Additional Instructions: patient is now dependent on oxygen, requiring 2 L nasal cannula, please keep her on the oxygen. Take the antibiotics as prescribed and return for any further issues. Patient Language: Nepalese Prescriptions: New albuterol sulfate 90 mcg/actuation HFA aerosol inhaler 2 puff inhalation QID PRN (Reason: shortness of breath or wheezing) Qty: 8.5 0RF amoxicillin-pot clavulanate 875-125 mg tablet 1 tablet PO Q12H Qty: 10 0RF doxycycline hyclate 100 mg capsule 100 mg PO Q12H 5 Days Qty: 10 0RF No Action albuterol sulfate 90 mcg/actuation HFA aerosol inhaler 1 puff inhalation Q4H PRN cholecalciferol (vitamin D3) 10 mcg (400 unit) capsule 10 mcg PO DAILY Women's 50 Plus Multivitamin 400 mcg-500 mg calcium-20 mcg tablet 1 tablet PO DAILY clobetasol 0.05 % solution 1 applic topical DAILY Qty: 50 0RF metoprolol succinate 100 mg tablet extended release 24 hr 100 mg PO DAILY Qty: 90 1RF atorvastatin 40 mg tablet 40 mg PO DAILY Qty: 90 1RF Spiriva with HandiHaler 18 mcg capsule, w/inhalation device 1 cap inhalation DAILY Qty: 30 5RF Rx Instructions: puncture 1 cap using device; one dose = 2 inhalations divalproex [Depakote Sprinkles] 125 mg capsule, delayed rel sprinkle 125 mg PO Q8H PRN (Reason: agitation) Qty: 30 0RF rivastigmine 4.6 mg/24 hour patch 24 hour 4.6 mg transdermal DAILY Qty: 30 0RF lorazepam [Ativan] 0.5 mg tablet 0.5 mg PO DAILY PRN (Reason: anxiety) Qty: 20 0RF fluticasone propion-salmeterol 250-50 mcg/dose blister with device See Rx Instructions .ROUTE .COMPLEX Qty: 60 0RF Dose Instruction: INHALE 1 DOSE BY MOUTH EVERY 12 HOURS Rx Instructions: INHALE 1 DOSE BY MOUTH EVERY 12 HOURS divalproex 250 mg tablet,delayed release (DR/EC) 250 mg PO Q12H Qty: 60 3RF Follow-up/Referrals: Brendan Richardson MD [Primary Care Provider] -
--- NOTE | 2024-09-08 13:56 | PC.NURSE ---
pt moving in bed, spo2 dropped to 86%, with rest patient spo2 is 94% patient did not require NC for rebound of spo2
--- NOTE | 2024-09-08 15:42 | PC.NURSE ---
Called report to [facility] and spoke with Tricia. 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 Also stated that they are unable to titrate oxygen at the facility and was asking if she would be on a baseline 02 liter.
== END 2024-09-08 16:51 | disposition home or self-care (01) ==
PROVIDERS: Emergency Provider Emergency Medicine; PCP Family Medicine
DX: J96.01 Acute respiratory failure with hypoxia (principal); J18.9 Pneumonia, unspecified organism; J44.9 Chronic obstructive pulmonary disease, unspecified; I10 Essential (primary) hypertension; E78.5 Hyperlipidemia, unspecified; G31.83 Neurocognitive disorder with Lewy bodies; F02.80 Dementia in other diseases classified elsewhere, unspecified severity, without behavioral disturbance, psychotic disturbance, mood disturbance, and anxiety; Z87.891 Personal history of nicotine dependence
CPT/HCPCS: 36415; 71045; 80048; 83605; 83880; 85025; 87040; 93005; 94640; 94664; 96365; 99284; A9270; J0696; J7512

== ENCOUNTER 2024-09-27 10:06 | Observation (INO) | payer MEDICARE, SELFPAY ==
[2024-09-27] VITALS (9 sets, daily range): BP systolic 114–126; BP diastolic 67–96; PULSE 79–107; RESP 19–24; TEMP 36.7; O2SAT 90–100; BMI 27.6
--- NOTE | ~2024-09-27 | CT_ITS ---
Clinical Indication: Hypoxia CT Scan of the Chest with Contrast: Technique: Contiguous sections were acquired throughout the chest after intravenous administration of 100 cc of Omnipaque 350. Dose reduction technique was used on this scan by utilizing automated expos ure control and iterative reconstruction technique. The dose-length product (DLP) was 279.88 mGy-cm. COMPARISON: 09/27/2024 Findings: There is no evidence of any significant mediastinal, hilar or axillary lymphadenopathy. There is no f illing defect in the pulmonary arterial tree to suggest pulmonary embolus. There is no evidence of ao rtic dissection or aneurysm. There is no evidence of pleural or pericardial effusion. Advanced emphysema present. No suspicious pulmonary nodule or consolidation. There is minimal bibasil ar atelectasis. Images through the upper abdomen reveal no abnormalities. Impression: No evidence of pulmonary embolus, aortic dissection, or aortic aneurysm. Advanced emphysema. Reviewed, dictated and finalized at [facility]. 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 Advanced emphysema.
--- NOTE | ~2024-09-27 | CT_ITS ---
EXAMINATION: CT diagnostic chest wo con DATE: 09/27/2024 12:09 INDICATION: SOB w/ hypoxia TECHNIQUE: Computed tomography (CT) of the chest was performed without intravenous contrast. Addition al 3D reconstructions utilizing coronal maximum intensity projection (MIP) were performed. Automated exposure control and iterative reconstruction technique were employed. The dose-length product was 32 7.23 mGy-cm. COMPARISON: 07/31/2017 FINDINGS: Severe upper lung predominant emphysema. Tiny left pleural effusion. There is consolidation at the po sterior sulci of the bilateral lower lobes and favor atelectasis over pneumonia. Heart size is normal . Atherosclerotic coronary artery calcific location. No pericardial effusion. Ectatic ascending thora cic aorta measuring up to 4.1 cm. No pathologically enlarged thoracic lymphadenopathy. Moderate thora cic spondylosis. Chronic compression fractures with 40% anterior vertebral body height loss at T3, 20 % anterior vertebral body height loss at T9 and minimal central vertebral body height loss at T5. IMPRESSION: 1. Severe emphysema with tiny left pleural effusion and mild bibasilar atelectasis. 2. Unchanged ectatic ascending thoracic aorta measuring up to 4.1 cm maximal diameter. Reviewed, dictated and finalized at location A. INER HELPER IMPRESSION: 1. Severe emphysema with tiny left pleural effusion and mild bibasilar atelecta sis. 2. Unchanged ectatic ascending thoracic aorta measuring up to 4.1 cm maximal di ameter.
--- NOTE | ~2024-09-27 | XR_ITS ---
EXAMINATION: XR chest 1V portable DATE: 09/27/2024 11:03 INDICATION: Dyspnea and chest congestion. TECHNIQUE: frontal view of the chest was obtained. COMPARISON: Chest radiograph dated 09/08/[address] dated 07/31/2017 FINDINGS: Emphysema with increased lucency and architectural distortion in the bilateral upper lung zones. Ther e is bronchovascular crowding but with groundglass opacity and increased interstitial pattern in the bilateral lower lung zones which could represent atelectasis, mild pulmonary edema or pneumonia. Hear t size normal with prominent collateral paracardial fat pads. Several old left-sided rib fractures. IMPRESSION: 1. Emphysema with opacities in the bilateral lower lungs which could represent atelectasis, mild pulm onary edema or pneumonia. Reviewed, dictated and finalized at location A. ESSOR OF ARCHITECTURE IMPRESSION: 1. Emphysema with opacities in the bilateral lower lungs which could represent atelectasis, mild pulmonary edema or pneumonia.
--- NOTE | 2024-09-27 10:16 | ECG_ITS ---
Test Date: 2024-09-27 11:05:12 Measurements Intervals Anna Rate: 90 P: 49 NH: 157 QRS: 58 QRSD: 86 T: 35 QT: 354 QTc: 433 Interpretive Statements SINUS RHYTHM NORMAL ECG Compared to ECG 09/08/2024 14:34:50 No significant changes Electronically Signed On 09-27-2024 13:49:35 [employer]URITY AND COMPLIANCE PROJECT MANAGER by Minh Sampson M.D.
[2024-09-27 10:37] LABS: Glucose Point of Care 112 mg/dl (65-105)
[2024-09-27 10:51] LABS: Alveolar/Arterial O2 Gradient 104.8 mmHg; Base Excess ABG 5.3 mEq/l (+/-2.0); Fractional Inspired Oxygen 28 %; HCO3 ABG 31.7 mEq/l (22.0-26.0); Oxygen Content ABG 9.9 %vol (16.0-22.0); PCO2 ABG 54.4 mmHg (35.0-45.0); Total Hemoglobin 12.9 g/dL (12.0-18.0); pH ABG 7.383 (7.350-7.450)
[2024-09-27] MEDS: MAGNESIUM SULF 2 GM/WATER 50ML 2 GM/50 ML BAG IVPB (10:52)
[2024-09-27] MEDS: methylPREDNISolone SOD SUCC 125 MG VIAL IV PUSH (10:52)
[2024-09-27] MEDS: IPRATROPIUM 0.5 MG/ALBUTEROL SULFATE 2.5 MG AMPUL.NEB 3 ML 12 ML INHALATION (10:55)
[2024-09-27 11:00] LABS: Basophils Percent Auto 0.7 % (0.2-1.2); Eosinophils Absolute Auto 0.2 K/mm3 (0-0.3); Eosinophils Percent Auto 4.1 % (0-4.4); Hematocrit 40.8 % (37.0-47.0); Hemoglobin 13.4 g/dL (12.0-15.0); Immature Granulocyte Absolute 0.04 K/mm3 (0.00-0.031); Immature Platelet Fraction Pct 7.4 % (0.9-11.2); Lymphocytes Absolute Auto 1.01 K/mm3 (0.9-3.2); Lymphocytes Percent Auto 24.5 % (18.3-44.2); Mean Corpuscular HGB Conc 32.8 g/dl (32-36); Mean Corpuscular Hemoglobin 32.6 pg (26-34); Mean Corpuscular Volume 99.3 fl (80-100); Mean Platelet Volume 11.4 fl (7.4-10.4); Monocytes Absolute Auto 0.9 K/mm3 (0.1-0.6); Monocytes Percent Auto 20.6 % (2.6-8.5); Neutrophils Percent Auto 49.1 % (45.5-73.1); Platelet Count Result 140 k/mm3 (150-375); Red Blood Count 4.11 M/mm3 (4.2-5.4); Red Cell Distribution Width 14.3 % (11.5-14.5); White Blood Count 4.1 K/mm3 (4.5-10.0)
[2024-09-27 11:02] LABS: Fractional Inspired Oxygen 28 %; HCO3 VBG 33.4 mEq/l (24.0-30.0); PCO2 VBG 54.3 mmHg (42.0-48.0); PO2 VBG 28.6 mmHg (35.0-45.0)
[2024-09-27 11:05] LABS: Lactic Acid Reflex 1.1 mmol/L (0.7-2.0)
[2024-09-27 11:05] LABS: pH VBG 7.407 (7.300-7.400)
[2024-09-27 11:07] LABS: Lipase 51 U/L (23-300); Phosphorus 3.5 mg/dL (2.5-4.5)
[2024-09-27 11:09] LABS: Alanine Aminotransferase 26 U/L (6-35); Albumin Level 3.6 g/dL (3.5-5.1); Alkaline Phosphatase 77 U/L (38-126); Anion Gap 2 mmol/L (4-12); Aspartate Amino Transferase 40 U/L (14-36); Bilirubin,Total 0.9 mg/dL (0.2-1.3); Blood Urea Nitrogen 18 mg/dL (7-17); Calcium 8.6 mg/dL (8.4-10.2); Carbon Dioxide 35 mmol/L (22-30); Chloride 103 mmol/L (98-107); Estimated CRCL calculation 57 ml/min; Estimated Glomerular Filt Rate > 60; Glucose 114 mg/dL (65-110); Potassium 3.8 mmol/L (3.4-5.0); Sodium 140 mmol/L (137-145)
[2024-09-27 11:10] LABS: Device NASAL CANNULA
[2024-09-27 11:11] LABS: PO2 ABG 30.7 mmHg (80.0-100.0)
[2024-09-27 11:12] LABS: Oxygen Saturation ABG 56.4 % (95.0-100.0)
[2024-09-27 11:13] LABS: Device NASAL CANNULA; Oxyhemoglobin 54.5 % THb (90.0-100.0); Site Drawn RIGHT RADIAL
[2024-09-27 11:15] LABS: NT Pro B Type Natriuretic Pept 344 pg/mL (19.9-100)
[2024-09-27 11:18] LABS: Troponin I < 0.012 ng/mL (0.000-0.034)
[2024-09-27 11:23] LABS: Partial Thromboplastin Time 30.9 Seconds (22.3-36.8); Prothrombin Time 13.9 Seconds (11.1-14.7)
[2024-09-27 11:25] LABS: D Dimer 0.61 ug/mL (<0.48)
[2024-09-27 11:46] LABS: Influenza A QL RT-PCR Negative (Negative); Influenza B QL RT-PCR Negative (Negative); RSV RNA, RT-PCR Negative (Negative); SARS-CoV-2 RNA PCR Negative (Negative)
--- NOTE | 2024-09-27 13:12 | ED_ITS ---
HPI - General Adult General Chief complaint: Upper Respiratory Infection Stated complaint: SOB Time Seen by Provider: 09/27/24 10:12 History of Present Illness HPI narrative: This is a 78-year-old female presenting ED with chief complaint shortness of breath. Patient recently been treated for pneumonia at the [facility] had finished antibiotics on September 13. Since then she has been on 3 L nasal cannula. [facility] called because they found her to be 83% on 3 L. the patient herself has Lewy body dementia and can provide no useful information during the interview. She has no complaints at this time. Related Data Home Medications ?Medication ?Instructions ?Recorded ?Confirmed ?Last Taken ?Type albuterol sulfate 90 mcg/actuation 1 puff inhalation Q4H PRN 03/05/23 04/30/24 Unknown History aerosol inhaler cholecalciferol (vitamin D3) 10 10 mcg PO DAILY 03/10/24 04/30/24 Unknown History mcg (400 unit) capsule kdwdacfx-ypp-hqujb ac 400 1 tablet PO DAILY 03/10/24 04/30/24 Unknown History mcg-calcium carb 500 mg-vit K1 20 mcg tablet (Women's 50 Plus Multivitamin) Allergies Allergy/AdvReac Type Severity Reaction Status Date / Time levofloxacin Allergy Unknown Other Verified 09/27/24 10:18 [facility] Past Medical History Medical History Lewy body dementia Hyperlipidemia, unspecified Disorder of bone density and structure, unspecified Essential (primary) hypertension Chronic obstructive pulmonary disease, unspecified Social History Social History Smoking status: Former smoker Alcohol intake: never Substance use: never Substance use type: does not use Lack of Transportation: No Lack of Food: Never True Current Housing: I Have Housing Concerned About Future Housing: No Difficulty Paying Gas/Electric Bills: No Difficulty Paying for Meds: No Currently Unemployed: YES Education: High School Diploma/GED Living arrangements: with family Occupation/Education: retired Gender identity (if verbalized by the patient): Female Sexual Orientation (if Verbalized by the Patient): Straight or Heterosexual Exam 2 Narrative: APPEARANCE: No apparent distress. Head: atraumatic. EYES: EOMI, NOSE: Atraumatic NECK: Trachea midline RESPIRATORY: Wheezing in all orozco, tachypneic, hypoxic on room air CARDIOVASCULAR: RRR, no peripheral edema ABDOMINAL: Non-distended soft nontender MUSCULOSKELETAl: No obvious deformities NEURO: Alert. Moving 4/4 extremities SKIN:: Warm, dry. Normal color PSYCHIATRIC: Normal affect Course Vital Signs Vital signs: Vital Signs Pulse Rate 92 09/27/24 10:11 Respiratory Rate 20 09/27/24 10:11 Blood Pressure 126/67 09/27/24 10:11 Pulse Oximetry 90 09/27/24 10:11 Oxygen Delivery Room Air 09/27/24 10:11 Pulse Rate 107 H 09/27/24 11:55 Respiratory Rate 24 H 09/27/24 11:55 Blood Pressure 126/67 09/27/24 10:11 Pulse Oximetry 100 09/27/24 10:15 Oxygen Delivery Nasal Cannula 09/27/24 10:15 Oxygen Flow Rate 3 09/27/24 10:15 Medical Decision Making MDM Narrative Medical decision making narrative: -Course: 38-year-old female presenting with hypoxia. Wheezing on exam. Given hour long DuoNeb treatment with some improvement. chest x-ray and CT without evidence of pneumonia. Patient has a normal white count and no fevers. viral swabs negative. ABG shows a compensated respiratory acidosis and hypoxic respiratory failure. Started on antibiotics. Patient will be admitted hospital for further management of her COPD exacerbation. -DDX includes but is not limited to: COPD exacerbation, pneumonia, heart failure, viral syndrome -Co-morbidities complicating care: COPD, dementia -Social determinants of health: NH resident -Independent interpretation of studies: labs imaging reviewed -Discussion of Management/Consultants: Susan -Interventions:Duoneb treatment, magnesium steroids, ceftriaxone azithromycin -Shared decision making / Disposition: admitted. Vital Signs Vital Signs: Vital Signs Pulse Rate 92 09/27/24 10:11 Respiratory Rate 20 09/27/24 10:11 Blood Pressure 126/67 09/27/24 10:11 Pulse Oximetry 90 09/27/24 10:11 Oxygen Delivery Room Air 09/27/24 10:11 Pulse Rate 107 H 09/27/24 11:55 Respiratory Rate 24 H 09/27/24 11:55 Blood Pressure 126/67 09/27/24 10:11 Pulse Oximetry 100 09/27/24 10:15 Oxygen Delivery Nasal Cannula 09/27/24 10:15 Oxygen Flow Rate 3 09/27/24 10:15 Lab Data 09/27/24 10:48 09/27/24 10:48 Labs: Lab Results 09/27/24 09/27/24 09/27/24 Range/Units 10:35 10:48 10:48 WBC 4.1 L (4.5-10.0) K/mm3 RBC 4.11 L (4.2-5.4) M/mm3 Hgb 13.4 (12.0-15.0) g/dL Hct 40.8 (37.0-47.0) % MCV 99.3 (80-100) fl MCH 32.6 (26-34) pg MCHC 32.8 (32-36) g/dl RDW 14.3 (11.5-14.5) % Plt Count 140 L (150-375) k/mm3 MPV 11.4 H (7.4-10.4) fl Immature Gran % (Auto) 1.0 H (0-0.5) % Neut % (Auto) 49.1 (45.5-73.1) % Lymph % (Auto) 24.5 (18.3-44.2) % [place] % (Auto) 20.6 H (2.6-8.5) % Eos % (Auto) 4.1 (0-4.4) % Baso % (Auto) 0.7 (0.2-1.2) % Lymph # (Auto) 1.01 (0.9-3.2) K/mm3 [place] # (Auto) 0.9 H (0.1-0.6) K/mm3 Eos # (Auto) 0.2 (0-0.3) K/mm3 Baso # (Auto) 0.0 (0.0-0.1) K/mm3 Abs Immat Gran (auto) 0.04 H (0.00-0.031) K/mm3 Absolute Neuts (auto) 2.0 (1.3-6.7) K/mm3 Absolute Nucleated RBC 0.000 (0.0-0.012) K/mm3 Nucleated RBC % 0.0 (0.0-0.2) % % Immature Plt Fraction 7.4 (0.9-11.2) % PT 13.9 Cancelled (11.1-14.7) Seconds INR 1.0 APTT (22.3-36.8) Seconds D-Dimer (<0.48) ug/mL Sodium (137-145) mmol/L Potassium (3.4-5.0) mmol/L Chloride (98-107) mmol/L Carbon Dioxide (22-30) mmol/L Anion Gap (4-12) mmol/L BUN (7-17) mg/dL Creatinine (0.7-1.0) mg/dL Estim Creat Clear Calc ml/min Estimated GFR (59 - ) Glucose (65-110) mg/dL POC Capillary Glucose 112 H (65-105) mg/dl Lactic Acid (0.7-2.0) mmol/L Calcium (8.4-10.2) mg/dL Phosphorus (2.5-4.5) mg/dL Magnesium (1.6-2.3) mg/dL Total Bilirubin (0.2-1.3) mg/dL AST (14-36) U/L ALT (6-35) U/L Alkaline Phosphatase (38-126) U/L Troponin I (0.000-0.034) ng/mL NT-Pro-B Natriuret Pep (19.9-100) pg/mL Total Protein (6.3-8.2) g/dL Albumin (3.5-5.1) g/dL Lipase (23-300) U/L Influenza A (RT-PCR) (Negative) Influenza B (RT-PCR) (Negative) RSV (RT-PCR) (Negative) SARS-CoV-2 RNA (RT-PCR) (Negative) 09/27/24 09/27/24 09/27/24 Range/Units 10:48 10:48 13:38 WBC (4.5-10.0) K/mm3 RBC (4.2-5.4) M/mm3 Hgb (12.0-15.0) g/dL Hct (37.0-47.0) % MCV (80-100) fl MCH (26-34) pg MCHC (32-36) g/dl RDW (11.5-14.5) % Plt Count (150-375) k/mm3 MPV (7.4-10.4) fl Immature Gran % (Auto) (0-0.5) % Neut % (Auto) (45.5-73.1) % Lymph % (Auto) (18.3-44.2) % [place] % (Auto) (2.6-8.5) % Eos % (Auto) (0-4.4) % Baso % (Auto) (0.2-1.2) % Lymph # (Auto) (0.9-3.2) K/mm3 [place] # (Auto) (0.1-0.6) K/mm3 Eos # (Auto) (0-0.3) K/mm3 Baso # (Auto) (0.0-0.1) K/mm3 Abs Immat Gran (auto) (0.00-0.031) K/mm3 Absolute Neuts (auto) (1.3-6.7) K/mm3 Absolute Nucleated RBC (0.0-0.012) K/mm3 Nucleated RBC % (0.0-0.2) % % Immature Plt Fraction (0.9-11.2) % PT (11.1-14.7) Seconds INR Cancelled APTT 30.9 Cancelled (22.3-36.8) Seconds D-Dimer 0.61 H (<0.48) ug/mL Sodium 140 (137-145) mmol/L Potassium 3.8 (3.4-5.0) mmol/L Chloride 103 (98-107) mmol/L Carbon Dioxide 35 H (22-30) mmol/L Anion Gap 2 L (4-12) mmol/L BUN 18 H (7-17) mg/dL Creatinine 0.70 (0.7-1.0) mg/dL Estim Creat Clear Calc 57 ml/min Estimated GFR > 60 (59 - ) Glucose 114 H (65-110) mg/dL POC Capillary Glucose (65-105) mg/dl Lactic Acid 1.1 (0.7-2.0) mmol/L Calcium 8.6 (8.4-10.2) mg/dL Phosphorus 3.5 (2.5-4.5) mg/dL Magnesium 2.0 (1.6-2.3) mg/dL Total Bilirubin 0.9 (0.2-1.3) mg/dL AST 40 H (14-36) U/L ALT 26 (6-35) U/L Alkaline Phosphatase 77 (38-126) U/L Troponin I < 0.012 < 0.012 (0.000-0.034) ng/mL NT-Pro-B Natriuret Pep 344 H (19.9-100) pg/mL Total Protein 7.0 (6.3-8.2) g/dL Albumin 3.6 (3.5-5.1) g/dL Lipase 51 (23-300) U/L Influenza A (RT-PCR) Negative (Negative) Influenza B (RT-PCR) Negative (Negative) RSV (RT-PCR) Negative (Negative) SARS-CoV-2 RNA (RT-PCR) Negative (Negative) ABG Data ABG results: 09/27/24 09/27/24 10:24 10:57 Puncture Site Right radial ABG pH 7.383 ABG pCO2 54.4 H ABG pO2 30.7 L* ABG PO2/FiO2 Ratio 1.10 ABG HCO3 31.7 H ABG O2 Saturation 56.4 L* ABG O2 Content 9.9 L ABG Base Excess 5.3 VBG pH 7.407 H* VBG pCO2 54.3 H VBG pO2 28.6 L VBG HCO3 33.4 H A-a Gradient 104.8 Oxyhemoglobin 54.5 L* Total Hemoglobin 12.9 O2 Delivery Device Nasal cannula Nasal cannula O2 Liters/Min 2.0 2.0 FiO2 28 28 Critical Care Time Critical Care Time Critical Care Time: Yes Total Critical Care Time: 35 Discharge Plan Discharge Clinical Impression: Chronic obstructive pulmonary disease, unspecified Qualifiers: COPD type: unspecified COPD Qualified Code(s): J44.9 - Chronic obstructive pulmonary disease, unspecified Patient Disposition: Still a Patient Condition: Stable Patient Language: Thai Prescriptions: No Action albuterol sulfate 90 mcg/actuation HFA aerosol inhaler 1 puff inhalation Q4H PRN cholecalciferol (vitamin D3) 10 mcg (400 unit) capsule 10 mcg PO DAILY Women's 50 Plus Multivitamin 400 mcg-500 mg calcium-20 mcg tablet 1 tablet PO DAILY clobetasol 0.05 % solution 1 applic topical DAILY Qty: 50 0RF albuterol sulfate 90 mcg/actuation HFA aerosol inhaler 2 puff inhalation QID PRN (Reason: shortness of breath or wheezing) Qty: 8.5 0RF doxycycline hyclate 100 mg capsule 100 mg PO Q12H 5 Days Qty: 10 0RF metoprolol succinate 100 mg tablet extended release 24 hr 100 mg PO DAILY Qty: 90 1RF atorvastatin 40 mg tablet 40 mg PO DAILY Qty: 90 1RF Spiriva with HandiHaler 18 mcg capsule, w/inhalation device 1 cap inhalation DAILY Qty: 30 5RF Rx Instructions: puncture 1 cap using device; one dose = 2 inhalations divalproex [Depakote Sprinkles] 125 mg capsule, delayed rel sprinkle 125 mg PO Q8H PRN (Reason: agitation) Qty: 30 0RF lorazepam [Ativan] 0.5 mg tablet 0.5 mg PO DAILY PRN (Reason: anxiety) Qty: 20 0RF fluticasone propion-salmeterol 250-50 mcg/dose blister with device See Rx Instructions .ROUTE .COMPLEX Qty: 60 0RF Dose Instruction: INHALE 1 DOSE BY MOUTH EVERY 12 HOURS Rx Instructions: INHALE 1 DOSE BY MOUTH EVERY 12 HOURS divalproex 250 mg tablet,delayed release (DR/EC) 250 mg PO Q12H Qty: 60 3RF rivastigmine 4.6 mg/24 hour patch 24 hour 4.6 mg transdermal DAILY Qty: 30 0RF penicillin V potassium 500 mg tablet 500 mg PO TID Qty: 30 0RF Follow-up/Referrals: Brendan Richardson MD [Primary Care Provider] -
[2024-09-27 14:11] LABS: Troponin I < 0.012 ng/mL (0.000-0.034)
[2024-09-27] MEDS: AZITHROMYCIN 500 MG/NS 250 ML 500 MG/250 ML BAG 250 MG IVPB (14:27)
[2024-09-27 15:03] LABS: Add Urine Microscopic? YES; Appearance Urine Clear (Clear); Bilirubin Urine Negative (Negative); Blood Urine Negative (Negative); Color Urine Dark Yellow (Yellow); Glucose Urine UA Negative (Negative); Ketones Urine Trace mg/dL (Negative); Leukocyte Esterase Ur Negative LEU/UL (Negative); Nitrate Urine Negative (Negative); Protein Urine Negative (Negative); Specific Grav Ur 1.025 (1.001-1.035)
--- NOTE | 2024-09-27 15:41 | PM.IMHP ---
H&P: HPI History of Present Illness Date/Time: 09/27/24 15:41 Chief Complaint: Shortness of breath hypoxia Narrative: 78-year-old female patient possible history of Lewy body dementia, hyperlipidemia hypertension and COPD from a facility with recent pneumonia finished antibiotics on 09/13/2024 presents with hypoxia. Since being discharged from hospital to the long-term the patient has remained on 3 L nasal cannula. Today when they were checking vitals 83% SpO2 on 3 L nasal cannula and called EMS. HPI is limited due to patient's dementia. 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 Patient states that she is unable to cough up phlegm. 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 ABG and VBG results are similar most likely both were VBG. BNP 344, UA negative for acute infection, influenza a, B, RSV and COVID negative. EKG shows normal sinus rhythm. Review of Systems Review of Systems: ROS unobtainable: Yes unobtainable due to mental status PMFSH Past Medical History Medical History Lewy body dementia Hyperlipidemia, unspecified Disorder of bone density and structure, unspecified Essential (primary) hypertension Chronic obstructive pulmonary disease, unspecified Family History Family History (Updated 09/27/24 @ 17:42 by Vicky Godoy RN) Mother Unknown family medical history Other Emphysema of lung Social History Social History Smoking packs per day: 1 Smoking cigarettes per day: 20.0 Years smoked: 30 Smoking pack-years: 30.00 Smoking status: Former smoker Tobacco type: cigarettes Smoking end date: 09/30/02 Alcohol intake: current Substance use: never Substance use type: does not use Do You Feel Safe in your Home?: Yes Lack of Transportation: No Lack of Food: Never True Current Housing: Decline to Answer Concerned About Future Housing: Decline to Answer Difficulty Paying Gas/Electric Bills: Decline to Answer Difficulty Paying for Meds: Decline to Answer Currently Unemployed: Decline to Answer Education: Master's Degree or Higher Difficulty w/ Childcare or Family Care: Decline to Answer Living arrangements: with family Occupation/Education: retired Gender identity (if verbalized by the patient): Female Sexual Orientation (if Verbalized by the Patient): Straight or Heterosexual Spiritual care concerns: No Meds Home Medications and Allergies Home Medications ?Medication ?Instructions ?Recorded ?Confirmed ?Type albuterol sulfate 90 mcg/actuation 2 puff inhalation Q4H PRN 03/05/23 09/27/24 History aerosol inhaler shortness of breath or wheezing metoprolol succinate 100 mg 100 mg PO DAILY #90 tabs 10/18/23 09/27/24 Rx tablet,extended release 24 hr cholecalciferol (vitamin D3) 10 10 mcg PO DAILY 03/10/24 09/27/24 History mcg (400 unit) capsule irzybbye-sfi-dkzfz ac 400 1 tablet PO DAILY 03/10/24 09/27/24 History mcg-calcium carb 500 mg-vit K1 20 mcg tablet (Women's 50 Plus Multivitamin) atorvastatin 40 mg tablet 40 mg PO DAILY #90 tabs 03/28/24 09/27/24 Rx tiotropium bromide 18 mcg capsule 1 cap inhalation DAILY #30 03/31/24 09/27/24 Rx with inhalation device (Spiriva inhalations with HandiHaler) divalproex 125 mg capsule,delayed 125 mg PO Q8H PRN agitation #30 04/13/24 09/27/24 Rx release sprinkle (Depakote caps Sprinkles) fluticasone 250 mcg-salmeterol 50 See Rx Instructions .Route 08/21/24 09/27/24 Rx mcg/dose blistr powdr for .COMPLEX #60 ea inhalation divalproex 250 mg tablet,delayed 250 mg PO Q12H #60 tabs 08/24/24 09/27/24 Rx release albuterol sulfate 90 mcg/actuation 2 puff inhalation QID PRN 09/08/24 09/27/24 Rx aerosol inhaler shortness of breath or wheezing #8.5 grams rivastigmine 4.6 mg/24 hour 4.6 mg transdermal DAILY #30 ea 09/14/24 09/27/24 Rx transdermal patch penicillin V potassium 500 mg 500 mg PO TID #30 tabs 09/24/24 09/27/24 Rx tablet cetirizine 10 mg capsule (All Day 10 mg PO DAILY PRN allergy symptoms 09/27/24 09/27/24 History Allergy (cetirizine)) lorazepam 0.5 mg tablet (Ativan) 0.5 mg PO Q12H PRN anxiety 09/27/24 09/27/24 History tiotropium bromide 18 mcg capsule 1 cap inhalation DAILY 09/27/24 09/27/24 History with inhalation device Allergies Allergy/AdvReac Type Severity Reaction Status Date / Time levofloxacin Allergy Unknown Other Verified 09/27/24 10:18 Vital Signs Vital Signs - 24 hr 09/27/24 10:11 09/27/24 10:15 09/27/24 10:55 Pulse Rate 92 88 Respiratory Rate 20 20 Blood Pressure 126/67 Pulse Oximetry 90 100 Oxygen Delivery Room Air Nasal Cannula Oxygen Flow Rate 3 09/27/24 11:55 09/27/24 14:34 Pulse Rate 107 H 107 H Respiratory Rate 24 H 19 Blood Pressure 114/86 Pulse Oximetry 96 Oxygen Delivery Oxygen Flow Rate Exam Narrative: General: well appearing, appears stated age. HEENT: normocephalic, atraumatic. Mucous membranes moist. EOMI, PERRLA, bilateral sclera anicteric, no conjunctival injection. Neck supple without JVD, lymphadenopathy, or bruit. Respiratory: clear to ascultation bilaterally. No rales/rhonic/wheezes. Cough Cardiovascular: Regular rate and rhythm, normal S1-S2 upon ascultation. No murmurs, rubs, or clicks. PMI is nondisplaced, capillary refill less than 3 second. Abdomen: Soft, round, no pulsatile masses, nondistended and nontender. No rebound, no guarding. No CVA tenderness, no hepatosplenomegaly. Bowel sounds present to all four quadrants. No high pitch or tinkling sounds, resonant to percussion. Extremities: No cyanosis, clubbing, or edema present. Pulses are palpable 2/2. Active ROM to all four extremities. Neuro: Alert and orientated x 2. PERRLA. Cranial nerves 2-12 intact without focal deficit. Skin: Warm, dry, and intact, without rash, erythema, or lesion. Psych: pleasant demented, cooperative, normal speech, normal affect, no hallucinations, no dysarthia H&P: Results Labs Labs: Short CBC 09/27/24 Range/Units 10:48 WBC 4.1 L (4.5-10.0) K/mm3 Hgb 13.4 (12.0-15.0) g/dL Hct 40.8 (37.0-47.0) % Plt Count 140 L (150-375) k/mm3 BMP 09/27/24 10:48 Sodium 140 Potassium 3.8 Chloride 103 Carbon Dioxide 35 H BUN 18 H Creatinine 0.70 Glucose 114 H Calcium 8.6 Cardiac Enzymes 09/27/24 09/27/24 Range/Units 10:48 13:38 Troponin I < 0.012 < 0.012 (0.000-0.034) ng/mL Liver Function 09/27/24 Range/Units 10:48 Total Bilirubin 0.9 (0.2-1.3) mg/dL AST 40 H (14-36) U/L ALT 26 (6-35) U/L Alkaline Phosphatase 77 (38-126) U/L Albumin 3.6 (3.5-5.1) g/dL Urine 09/27/24 Range/Units 14:52 Urine Color Dark yellow (Yellow) Urine Appearance Clear (Clear) Urine pH 6.0 (5.0-9.0) Ur Specific [place] 1.025 (1.001-1.035) Urine Protein Negative (Negative) mg/dL Urine Glucose (UA) Negative (Negative) mg/dL ECG Interpretation: 2024-09-27 11:05:12 Measurements Intervals Marydel Rate: 90 P: 49 MS: 157 QRS: 58 QRSD: 86 T: 35 QT: 354 QTc: 433 Interpretive Statements SINUS RHYTHM NORMAL ECG Compared to ECG 09/08/2024 14:34:50 No significant changes Assessment and Plan Assessment and plan (1) Chronic obstructive pulmonary disease, unspecified: Qualifiers: COPD type: unspecified COPD Qualified Code(s): J44.9 - Chronic obstructive pulmonary disease, unspecified Code(s): J44.9 - Chronic obstructive pulmonary disease, unspecified Status: Acute Assessment and Plan: COPD exacerbation Azithromycin and Rocephin Legionella culture DuoNebs Solu-Medrol x1 followed by prednisone daily Guaifenesin Wean oxygen for SpO2 of 88 above (2) Acute respiratory distress: Code(s): R06.03 - Acute respiratory distress Status: Acute Assessment and Plan: Secondary to COPD exacerbation See above (3) Lewy body dementia: Qualifiers: Dementia behavioral or psychological symptom: with psychotic disturbance Dementia severity: mild Qualified Code(s): G31.83 - Neurocognitive disorder with Lewy bodies; F02.A2 - Dementia in other diseases classified elsewhere, mild, with psychotic disturbance Code(s): G31.83 - Neurocognitive disorder with Lewy bodies; F02.80 - Dementia in other diseases classified elsewhere, unspecified severity, without behavioral disturbance, psychotic disturbance, mood disturbance, and anxiety Status: Acute Assessment and Plan: Continue home med Ativan p.r.n. for agitation (4) Hyperlipidemia, unspecified: Qualifiers: Hyperlipidemia type: mixed hyperlipidemia Qualified Code(s): E78.2 - Mixed hyperlipidemia Code(s): E78.5 - Hyperlipidemia, unspecified Status: Acute Assessment and Plan: Continue home med (5) Hyperglycemia: Code(s): R73.9 - Hyperglycemia, unspecified Status: Acute Assessment and Plan: No history of diabetes, likely due to steroid Accu-Cheks AC and HS SSI Hemoglobin A1c Quality VTE Prophylaxis VTE prophylaxis: mechanical ordered and pharmacologic ordered Hospitalist MIPS Advance Care Plan I have confirmed that the patient's Advanced Care Plan is present, code status is documented, or surrogate decision maker is listed in patient medical record.: Yes Medication Reconciliation I have utilized all available resources to obtain, update and review the patients current medications (includes all prescriptions, OTC, herbals, cannabis, and nutritional supplements).: Yes
--- NOTE | 2024-09-27 16:55 | PC.NURSE ---
This patient, Zamzam Perea, was admitted to [facility] Surg Room 313-01. Patient/family oriented to hospital policies and general routines including ID bracelet, bed and alarms, visiting hours, pain management, procedures, bathroom and other care routines, personal items, smoking policy, room service/diet, and visiting hours. Information on how to activate the Rapid Response Team has been discussed. Patient/Family are encouraged to report perceived risks to care and to ask questions if they do not understand what they are told or what they should do.
[2024-09-27 17:00] LABS: Alanine Aminotransferase 24 U/L (6-35); Albumin Level 3.2 g/dL (3.5-5.1); Alkaline Phosphatase 75 U/L (38-126); Anion Gap 3 mmol/L (4-12); Aspartate Amino Transferase 29 U/L (14-36); Bilirubin,Total 0.4 mg/dL (0.2-1.3); Blood Urea Nitrogen 15 mg/dL (7-17); Calcium 8.1 mg/dL (8.4-10.2); Carbon Dioxide 30 mmol/L (22-30); Chloride 105 mmol/L (98-107); Estimated CRCL calculation 66 ml/min; Estimated Glomerular Filt Rate > 60; Glucose 178 mg/dL (65-110); Potassium 3.9 mmol/L (3.4-5.0); Sodium 138 mmol/L (137-145)
[2024-09-27 20:40] LABS: Glucose Point of Care 216 mg/dl (65-105)
[2024-09-27] MEDS: INSULIN ASPART (*BKC) 100 UNITS/ML SUB-Q (20:43)
[2024-09-27] MEDS: IPRATROPIUM 0.5 MG/ALBUTEROL SULFATE 2.5 MG AMPUL.NEB 3 ML INHALATION (21:06)
[2024-09-28] VITALS (14 sets, daily range): BP systolic 120–146; BP diastolic 71–96; PULSE 62–94; RESP 18–22; TEMP 36.3–36.8; O2SAT 92–96
[2024-09-28] MEDS: IPRATROPIUM 0.5 MG/ALBUTEROL SULFATE 2.5 MG AMPUL.NEB 3 ML INHALATION ×4 (02:30→21:24)
[2024-09-28] MEDS: guaiFENesin/DEXTROMETHORPHAN 10 ML UDC PO ×5 (05:47→21:03)
[2024-09-28 07:02] LABS: Basophils Percent Auto 0.4 % (0.2-1.2); Eosinophils Percent Auto 0.2 % (0-4.4); Hematocrit 38.9 % (37.0-47.0); Hemoglobin 12.4 g/dL (12.0-15.0); Immature Granulocyte Absolute 0.05 K/mm3 (0.00-0.031); Immature Granulocyte Percent A 0.9 % (0-0.5); Lymphocytes Absolute Auto 0.67 K/mm3 (0.9-3.2); Mean Corpuscular HGB Conc 31.9 g/dl (32-36); Mean Corpuscular Hemoglobin 32.2 pg (26-34); Mean Platelet Volume 10.9 fl (7.4-10.4); Monocytes Absolute Auto 0.7 K/mm3 (0.1-0.6); Monocytes Percent Auto 12.9 % (2.6-8.5); Neutrophils Absolute Auto 4.1 K/mm3 (1.3-6.7); Neutrophils Percent Auto 73.6 % (45.5-73.1); Platelet Count Result 162 k/mm3 (150-375); Red Blood Count 3.85 M/mm3 (4.2-5.4); Red Cell Distribution Width 14.2 % (11.5-14.5); White Blood Count 5.6 K/mm3 (4.5-10.0)
[2024-09-28] MEDS: FLUTICASONE/SALMETEROL 115-21 MCG INHALER 1 PUFF 2 PUFF INHALATION ×2 (07:50→21:24)
[2024-09-28 08:04] LABS: Hemoglobin A1C 5.7 % (<5.7)
[2024-09-28 08:20] LABS: Glucose Point of Care 128 mg/dl (65-105)
[2024-09-28] MEDS: DOCUSATE SODIUM 100 MG CAPSULE PO (08:45)
[2024-09-28] MEDS: predniSONE 20 MG TABLET 40 MG PO (08:45)
[2024-09-28] MEDS: DIVALPROEX SODIUM DR 250 MG TABEC PO ×2 (08:46→21:02)
[2024-09-28] MEDS: METOPROLOL SUCCINATE EXT REL 100 MG TABCR PO (08:46)
[2024-09-28] MEDS: ATORVASTATIN 40 MG TABLET PO (08:46)
[2024-09-28] MEDS: RIVASTIGMINE TARTRATE 4.6 MG PATCH 1 PATCH TRANSDERM (08:47)
[2024-09-28] MEDS: ENOXAPARIN 40 MG/0.4 ML SYRINGE SUB-Q (08:48)
--- NOTE | 2024-09-28 09:30 | P.PNIM_ITS ---
Progress Note: A&P Assessment and Plan (1) Acute respiratory failure with hypoxia: Code(s): J96.01 - Acute respiratory failure with hypoxia Status: Acute Assessment and Plan: Per chart review, intermediate found patient to have a SpO2 83% on 3L NC. Patient has been on 3L NC since Sep 13 after being discharged for pneumonia. - Oxygen supplementation: 3L NC (baseline) - Suspected cause: COPD exacerbation vs pneumonia - EKG: sinus rhthym HR 90 - D dimer: 0.61 on 09/27 - Chest XR: Emphysema with opacities in the bilateral lower lungs which could represent atelectasis, mild pulmonary edema or pneumonia. - Chest CT: 1. Severe emphysema with tiny left pleural effusion and mild bibasilar atelectasis. 2. Unchanged ectatic ascending thoracic aorta measuring up to 4.1 cm maximal diameter. - Chest CTA as patient has elevated dimer and PE has not been ruled out (2) Pneumonia: Code(s): J18.9 - Pneumonia, unspecified organism Status: Inactive Assessment and Plan: - Chest XR: Emphysema with opacities in the bilateral lower lungs which could represent atelectasis, mild pulmonary edema or pneumonia. - Chest CT: 1. Severe emphysema with tiny left pleural effusion and mild bibasilar atelectasis. 2. Unchanged ectatic ascending thoracic aorta measuring up to 4.1 cm maximal diameter. - Complicating Factors: COPD on chronic oxygen supplementation (3L NC) - started on CAP tx: azithromycin ceftriaxone on 09/27 - Viral PCR: negative for Flu/COVID/RSV - Monitor vital signs, I&Os, neuro status and patient is a fall risk - Follow WBC, serum electrolytes, temperature curves and cultures (3) Chronic obstructive pulmonary disease, unspecified: Qualifiers: COPD type: unspecified COPD Qualified Code(s): J44.9 - Chronic obstruct génesis pulmonary disease, unspecified Code(s): J44.9 - Chronic obstructive pulmonary disease, unspecified Status: Acute Assessment and Plan: - Started on azithromycin 500 mg daily on 09/27 - Duonebz q6H and Albuterol q2H prn - Solu-Medrol x1, followed by prednisone - Monitor vital signs, I&Os, neuro status and patient is a fall risk - Monitor serum electrolytes, cultures and CBC - Monitor Oxygen saturation, Oxygen via NC; wean oxygen as tolerated, keep SpO2 greater than 88% (4) Lewy body dementia: Qualifiers: Dementia behavioral or psychological symptom: with psychotic disturbance Dementia severity: mild Qualified Code(s): G31.83 - Neurocognitive disorder with Lewy bodies; F02.A2 - Dementia in other diseases classified elsewhere, mild, with psychotic disturbance Code(s): G31.83 - Neurocognitive disorder with Lewy bodies; F02.80 - Dementia in other diseases classified elsewhere, unspecified severity, without behavioral disturbance, psychotic disturbance, mood disturbance, and anxiety Status: Acute Assessment and Plan: Continue home medications Ativan p.r.n. for agitation (5) Hyperlipidemia, unspecified: Qualifiers: Hyperlipidemia type: mixed hyperlipidemia Qualified Code(s): E78.2 - Mixed hyperlipidemia Code(s): E78.5 - Hyperlipidemia, unspecified Status: Acute Assessment and Plan: Continue atorvastatin 40 mg daily (6) Hyperglycemia: Code(s): R73.9 - Hyperglycemia, unspecified Status: Acute Assessment and Plan: No history of diabetes, likely due to steroid Accu-Cheks AC and HS SSI Hemoglobin A1c 5.7 Time Spent With Patient Time with patient: 25 - 35 minutes Subjective Date/time seen: 09/28/24 09:30 Interval history: 78 year old female with past medical history of hypertension, COPD, osteoporosis, hyperlipidemia, recurrent cold sores and benign paroxysmal positional vertigo presents to the hospital for shortness of breath. Patient is pleasant lying in bed with family at bedside. She is talking in complete sentences and remains on her home oxygen supplementation. Per daughter in law patient is at baseline mental status. Review of Systems Review of Systems: ROS unobtainable: Yes unobtainable due to mental status Exam Narrative: AF HR 82 RR 22 SpO2 95 2L NC Baseline BP 120/71 General: female in no acute respiratory distress who is nontoxic appearing, lying semi recumbent in bed. HEENT: Normocephalic. Atraumatic. Extraocular movement intact. Sclera clear and anicteric. No facial asymmetry. Chest: Lungs are clear to auscultation bilaterally. No wheezes or crackles. CV: Heart was regular rate and rhythm. S1-S2. No murmurs, gallops, or rubs. Abd: Abdomen was soft. Nontender. Nondistended. Positive bowel sounds. No organomegaly or masses. Ext: No clubbing, cyanosis, or edema. 2+ DP pulses bilaterally. Neuro: Patient is alert (baseline). Cranial nerves 2-12 are intact. Speech is clear. Objective Data Vital Signs Vital Signs: Vital Signs - 24 hr 09/27/24 10:11 09/27/24 10:15 09/27/24 10:55 Temperature Pulse Rate 92 88 Respiratory Rate 20 20 Blood Pressure 126/67 Pulse Oximetry 90 100 Oxygen Delivery Room Air Nasal Cannula Oxygen Flow Rate 3 09/27/24 11:55 09/27/24 14:34 09/27/24 20:00 Temperature Pulse Rate 107 H 107 H Respiratory Rate 24 H 19 Blood Pressure 114/86 Pulse Oximetry 96 96 Oxygen Delivery Nasal Cannula Oxygen Flow Rate 3 09/27/24 20:00 09/27/24 21:06 09/27/24 21:07 Temperature 98.0 F Pulse Rate 79 88 Respiratory Rate 20 20 Blood Pressure 126/96 H Pulse Oximetry 94 96 Oxygen Delivery Nasal Cannula Oxygen Flow Rate 3 09/27/24 21:13 09/28/24 02:30 09/28/24 02:45 Temperature Pulse Rate 86 86 86 Respiratory Rate 20 20 20 Blood Pressure Pulse Oximetry Oxygen Delivery Oxygen Flow Rate 09/28/24 06:00 09/28/24 07:50 09/28/24 07:50 Temperature 97.6 F Pulse Rate 88 81 81 Respiratory Rate 22 H 18 18 Blood Pressure 138/74 Pulse Oximetry 95 96 Oxygen Delivery Nasal Cannula Oxygen Flow Rate 2 09/28/24 08:00 09/28/24 08:46 Temperature Pulse Rate 82 62 Respiratory Rate 20 Blood Pressure Pulse Oximetry Oxygen Delivery Oxygen Flow Rate Intake/Output Intake/Output: Intake & Output 09/25/24 09/26/24 09/27/24 09/28/24 23:59 23:59 23:59 23:59 Intake Total 350 0 Balance 350 0 Meds/Results Medications: Active Medications Generic Name Dose Route Start Last Admin Trade Name Freq PRN Reason Stop Dose Admin Acetaminophen 650 mg 09/27/24 15:45 Acetaminophen 325 Mg Tablet PO Q4H PRN Mild Pain (1-3) or Fever Albuterol/Ipratropium 3 ml 09/27/24 20:00 09/28/24 07:50 Ipratropium 0.5 Mg/Albuterol Sulfate 2.5 Mg Ampul.Neb 3 Ml INHALATION 3 ml Q6HRT KULDEEP Administration Albuterol/Ipratropium 3 ml 09/27/24 15:45 Ipratropium 0.5 Mg/Albuterol Sulfate 2.5 Mg Ampul.Neb 3 Ml INHALATION Q6HRT PRN Shortness Of Breath Or Wheezing Atorvastatin Calcium 40 mg 09/28/24 09:00 09/28/24 08:46 Atorvastatin 40 Mg Tablet PO 40 mg DAILY KULDEEP Administration Dextrose 12.5 gm 09/27/24 17:14 Dextrose 50% 25 Gm/50 Ml Syringe IV PUSH PRN PRN Hypoglycemia Protocol Divalproex Sodium 250 mg 09/27/24 23:05 09/28/24 08:[address] 250 Mg Tabec PO 250 mg Q12HR KULDEEP Administration Docusate Sodium 100 mg 09/28/24 09:00 09/28/24 08:45 Docusate Sodium 100 Mg Capsule PO 100 mg DAILY KULDEEP Administration Enoxaparin Sodium 40 mg 09/28/24 09:00 09/28/24 08:48 Enoxaparin 40 Mg/0.4 Ml Syringe SUB-Q 40 mg DAILY KULDEEP Administration Glucagon 1 mg 09/27/24 17:14 Glucagon For Inj 1 Mg Vial IM PRN PRN Hypoglycemia Protocol Glucose 15 gm 09/27/24 17:14 Glucose Oral Gel 15 Gm Of Glucse In 37.5 Gm Tube PO PRN PRN Hypoglycemia Protocol Guaifenesin/Dextromethorphan 10 ml 09/28/24 01:00 09/28/24 08:47 Guaifenesin/Dextromethorphan 10 Ml Udc PO 10 ml Q4HR KULDEEP Administration Ceftriaxone Sodium 1 gm in 50 mls @ 100 mls/hr 09/28/24 13:00 Rocephin 1 Gm/Ns 50 Ml IVPB Q24H KULDEEP Azithromycin 500 mg in 250 mls @ 250 mls/hr 09/28/24 14:00 Zithromax IVPB Q24H KULDEEP Dextrose 1,000 mls @ 100 mls/hr 09/27/24 17:14 Dextrose 5% 1,000 Ml IVPB PRN PRN Hypoglycemia Protocol Insulin Aspart 2 - 5 units 09/28/24 08:00 09/28/24 08:38 Insulin Aspart (*Bkc) 100 Units/Ml SUB-Q Not Given TIDWM KULDEEP Protocol Insulin Aspart 1 - 2 units 09/27/24 21:00 09/27/24 20:43 Insulin Aspart (*Bkc) 100 Units/Ml SUB-Q 1 units HS KULDEEP Administration Protocol Lorazepam 0.5 mg 09/27/24 23:04 Lorazepam (*Crx) 0.5 Mg Tablet PO Q12H PRN anxiety Metoprolol Succinate 100 mg 09/28/24 09:00 09/28/24 08:46 Metoprolol Succinate Ext Rel 100 Mg Tabcr PO 100 mg DAILY KULDEEP Administration Miscellaneous Information 1 each 09/28/24 00:01 Hold Home Spiriva? Duplicate Anticholinergics With Duoneb XX 10/28/24 00:00 CLARIFY [facility] Non-Formulary Medication 1 cap 09/28/24 09:00 Tiotropium [place] INHALATION 10/28/24 08:59 DAILY [facility] Prednisone 40 mg 09/28/24 08:00 09/28/24 08:45 Prednisone 20 Mg Tablet PO 10/03/24 07:59 40 mg DAILY@0800 [facility] Administration Rivastigmine 1 patch 09/28/24 09:00 09/28/24 08:47 Rivastigmine Tartrate 4.6 Mg Patch TRANSDERM 1 patch DAILY KULDEEP Administration Fluticasone/Salmeterol 2 puff 09/28/24 08:00 09/28/24 07:50 Fluticasone/Salmeterol 115-21 Mcg Inhaler 1 Puff INHALATION 2 puff Q12HRT KULDEEP Administration Radiology Results: ITS Impressions Chest X-Ray 09/27/24 11:07 IMPRESSION: 1. Emphysema with opacities in the bilateral lower lungs which could represent atelectasis, mild pulmonary edema or pneumonia. Chest CT 09/27/24 12:28 IMPRESSION: 1. Severe emphysema with tiny left pleural effusion and mild bibasilar atelectasis. 2. Unchanged ectatic ascending thoracic aorta measuring up to 4.1 cm maximal diameter. Labs Labs: Laboratory Results - last 24 hr 09/27/24 09/27/24 09/27/24 10:24 10:35 10:48 WBC 4.1 L RBC 4.11 L Hgb 13.4 Hct 40.8 MCV 99.3 MCH 32.6 MCHC 32.8 RDW 14.3 Plt Count 140 L MPV 11.4 H Immature Gran % (Auto) 1.0 H Neut % (Auto) 49.1 Lymph % (Auto) 24.5 Rains % (Auto) 20.6 H Eos % (Auto) 4.1 Baso % (Auto) 0.7 Lymph # (Auto) 1.01 Rains # (Auto) 0.9 H Eos # (Auto) 0.2 Baso # (Auto) 0.0 Abs Immat Gran (auto) 0.04 H Absolute Neuts (auto) 2.0 Absolute Nucleated RBC 0.000 Nucleated RBC % 0.0 % Immature Plt Fraction 7.4 PT 13.9 INR APTT D-Dimer Puncture Site Right radial ABG pH 7.383 ABG pCO2 54.4 H ABG pO2 30.7 L* ABG PO2/FiO2 Ratio 1.10 ABG HCO3 31.7 H ABG O2 Saturation 56.4 L* ABG O2 Content 9.9 L ABG Base Excess 5.3 VBG pH VBG pCO2 VBG pO2 VBG HCO3 A-a Gradient 104.8 Oxyhemoglobin 54.5 L* Total Hemoglobin 12.9 O2 Delivery Device Nasal cannula O2 Liters/Min 2.0 FiO2 28 Sodium Potassium Chloride Carbon Dioxide Anion Gap BUN Creatinine Estim Creat Clear Calc Estimated GFR Glucose POC Capillary Glucose 112 H Hemoglobin A1c Lactic Acid Calcium Phosphorus Magnesium Total Bilirubin AST ALT Alkaline Phosphatase Troponin I NT-Pro-B Natriuret Pep Total Protein Albumin Lipase Urine Color Urine Appearance Urine pH Ur Specific [place] Urine Protein Urine Glucose (UA) Urine Ketones Ur Blood (Man) Urine Nitrate Urine Bilirubin Urine Urobilinogen Leukocyte Esterase Rfl Influenza A (RT-PCR) Influenza B (RT-PCR) RSV (RT-PCR) SARS-CoV-2 RNA (RT-PCR) 09/27/24 09/27/24 09/27/24 10:48 10:48 10:48 WBC RBC Hgb Hct MCV MCH MCHC RDW Plt Count MPV Immature Gran % (Auto) Neut % (Auto) Lymph % (Auto) Rains % (Auto) Eos % (Auto) Baso % (Auto) Lymph # (Auto) Rains # (Auto) Eos # (Auto) Baso # (Auto) Abs Immat Gran (auto) Absolute Neuts (auto) Absolute Nucleated RBC Nucleated RBC % % Immature Plt Fraction PT Cancelled INR 1.0 Cancelled APTT 30.9 Cancelled D-Dimer 0.61 H Puncture Site ABG pH ABG pCO2 ABG pO2 ABG PO2/FiO2 Ratio ABG HCO3 ABG O2 Saturation ABG O2 Content ABG Base Excess VBG pH VBG pCO2 VBG pO2 VBG HCO3 A-a Gradient Oxyhemoglobin Total Hemoglobin O2 Delivery Device O2 Liters/Min FiO2 Sodium 140 Potassium 3.8 Chloride 103 Carbon Dioxide 35 H Anion Gap 2 L BUN 18 H Creatinine 0.70 Estim Creat Clear Calc 57 Estimated GFR > 60 Glucose 114 H POC Capillary Glucose Hemoglobin A1c Lactic Acid 1.1 Calcium 8.6 Phosphorus 3.5 Magnesium 2.0 Total Bilirubin 0.9 AST 40 H ALT 26 Alkaline Phosphatase 77 Troponin I < 0.012 NT-Pro-B Natriuret Pep 344 H Total Protein 7.0 Albumin 3.6 Lipase 51 Urine Color Urine Appearance Urine pH Ur Specific [place] Urine Protein Urine Glucose (UA) Urine Ketones Ur Blood (Man) Urine Nitrate Urine Bilirubin Urine Urobilinogen Leukocyte Esterase Rfl Influenza A (RT-PCR) Negative Influenza B (RT-PCR) Negative RSV (RT-PCR) Negative SARS-CoV-2 RNA (RT-PCR) Negative 09/27/24 09/27/24 09/27/24 10:57 13:38 14:52 WBC RBC Hgb Hct MCV MCH MCHC RDW Plt Count MPV Immature Gran % (Auto) Neut % (Auto) Lymph % (Auto) Rains % (Auto) Eos % (Auto) Baso % (Auto) Lymph # (Auto) Rains # (Auto) Eos # (Auto) Baso # (Auto) Abs Immat Gran (auto) Absolute Neuts (auto) Absolute Nucleated RBC Nucleated RBC % % Immature Plt Fraction PT INR APTT D-Dimer Puncture Site ABG pH ABG pCO2 ABG pO2 ABG PO2/FiO2 Ratio ABG HCO3 ABG O2 Saturation ABG O2 Content ABG Base Excess VBG pH 7.407 H* VBG pCO2 54.3 H VBG pO2 28.6 L VBG HCO3 33.4 H A-a Gradient Oxyhemoglobin Total Hemoglobin O2 Delivery Device Nasal cannula O2 Liters/Min 2.0 FiO2 28 Sodium Potassium Chloride Carbon Dioxide Anion Gap BUN Creatinine Estim Creat Clear Calc Estimated GFR Glucose POC Capillary Glucose Hemoglobin A1c Lactic Acid Calcium Phosphorus Magnesium Total Bilirubin AST ALT Alkaline Phosphatase Troponin I < 0.012 NT-Pro-B Natriuret Pep Total Protein Albumin Lipase Urine Color Dark yellow Urine Appearance Clear Urine pH 6.0 Ur Specific [place] 1.025 Urine Protein Negative Urine Glucose (UA) Negative Urine Ketones Trace H Ur Blood (Man) Negative Urine Nitrate Negative Urine Bilirubin Negative Urine Urobilinogen 2.0 H Leukocyte Esterase Rfl Negative Influenza A (RT-PCR) Influenza B (RT-PCR) RSV (RT-PCR) SARS-CoV-2 RNA (RT-PCR) 09/27/24 09/27/24 09/28/24 16:45 20:05 06:24 WBC 5.6 RBC 3.85 L Hgb 12.4 Hct 38.9 MCV 101.0 H MCH 32.2 MCHC 31.9 L RDW 14.2 Plt Count 162 MPV 10.9 H Immature Gran % (Auto) 0.9 H Neut % (Auto) 73.6 H Lymph % (Auto) 12.0 L Rains % (Auto) 12.9 H Eos % (Auto) 0.2 Baso % (Auto) 0.4 Lymph # (Auto) 0.67 L Rains # (Auto) 0.7 H Eos # (Auto) 0.0 Baso # (Auto) 0.0 Abs Immat Gran (auto) 0.05 H Absolute Neuts (auto) 4.1 Absolute Nucleated RBC 0.000 Nucleated RBC % 0.0 % Immature Plt Fraction PT INR APTT D-Dimer Puncture Site ABG pH ABG pCO2 ABG pO2 ABG PO2/FiO2 Ratio ABG HCO3 ABG O2 Saturation ABG O2 Content ABG Base Excess VBG pH VBG pCO2 VBG pO2 VBG HCO3 A-a Gradient Oxyhemoglobin Total Hemoglobin O2 Delivery Device O2 Liters/Min FiO2 Sodium 138 Potassium 3.9 Chloride 105 Carbon Dioxide 30 Anion Gap 3 L BUN 15 Creatinine 0.60 L Estim Creat Clear Calc 66 Estimated GFR > 60 Glucose 178 H POC Capillary Glucose 216 H Hemoglobin A1c 5.7 Lactic Acid Calcium 8.1 L Phosphorus Magnesium Total Bilirubin 0.4 AST 29 ALT 24 Alkaline Phosphatase 75 Troponin I NT-Pro-B Natriuret Pep Total Protein 6.0 L Albumin 3.2 L Lipase Urine Color Urine Appearance Urine pH Ur Specific [place] Urine Protein Urine Glucose (UA) Urine Ketones Ur Blood (Man) Urine Nitrate Urine Bilirubin Urine Urobilinogen Leukocyte Esterase Rfl Influenza A (RT-PCR) Influenza B (RT-PCR) RSV (RT-PCR) SARS-CoV-2 RNA (RT-PCR) 09/28/24 08:13 WBC RBC Hgb Hct MCV MCH MCHC RDW Plt Count MPV Immature Gran % (Auto) Neut % (Auto) Lymph % (Auto) Rains % (Auto) Eos % (Auto) Baso % (Auto) Lymph # (Auto) Rains # (Auto) Eos # (Auto) Baso # (Auto) Abs Immat Gran (auto) Absolute Neuts (auto) Absolute Nucleated RBC Nucleated RBC % % Immature Plt Fraction PT INR APTT D-Dimer Puncture Site ABG pH ABG pCO2 ABG pO2 ABG PO2/FiO2 Ratio ABG HCO3 ABG O2 Saturation ABG O2 Content ABG Base Excess VBG pH VBG pCO2 VBG pO2 VBG HCO3 A-a Gradient Oxyhemoglobin Total Hemoglobin O2 Delivery Device O2 Liters/Min FiO2 Sodium Potassium Chloride Carbon Dioxide Anion Gap BUN Creatinine Estim Creat Clear Calc Estimated GFR Glucose POC Capillary Glucose 128 H Hemoglobin A1c Lactic Acid Calcium Phosphorus Magnesium Total Bilirubin AST ALT Alkaline Phosphatase Troponin I NT-Pro-B Natriuret Pep Total Protein Albumin Lipase Urine Color Urine Appearance Urine pH Ur Specific [place] Urine Protein Urine Glucose (UA) Urine Ketones Ur Blood (Man) Urine Nitrate Urine Bilirubin Urine Urobilinogen Leukocyte Esterase Rfl Influenza A (RT-PCR) Influenza B (RT-PCR) RSV (RT-PCR) SARS-CoV-2 RNA (RT-PCR) Quality VTE Prophylaxis VTE prophylaxis: mechanical ordered and pharmacologic ordered
[2024-09-28 11:39] LABS: Glucose Point of Care 115 mg/dl (65-105)
[2024-09-28] MEDS: AZITHROMYCIN 500 MG/NS 250 ML 500 MG/250 ML BAG 250 MG IVPB (13:19)
[2024-09-28 16:48] LABS: Glucose Point of Care 153 mg/dl (65-105)
[2024-09-28 20:33] LABS: Glucose Point of Care 149 mg/dl (65-105)
[2024-09-29] VITALS (12 sets, daily range): BP systolic 134–148; BP diastolic 66–77; PULSE 68–92; RESP 18–22; TEMP 35.8–36.3; O2SAT 92–97
[2024-09-29] MEDS: IPRATROPIUM 0.5 MG/ALBUTEROL SULFATE 2.5 MG AMPUL.NEB 3 ML INHALATION ×3 (02:21→14:39)
[2024-09-29] MEDS: guaiFENesin/DEXTROMETHORPHAN 10 ML UDC PO ×4 (06:30→16:18)
[2024-09-29 06:39] LABS: Basophils Percent Auto 0.3 % (0.2-1.2); Eosinophils Percent Auto 0.2 % (0-4.4); Hematocrit 36.6 % (37.0-47.0); Hemoglobin 11.9 g/dL (12.0-15.0); Immature Granulocyte Absolute 0.09 K/mm3 (0.00-0.031); Immature Granulocyte Percent A 1.4 % (0-0.5); Lymphocytes Absolute Auto 1.14 K/mm3 (0.9-3.2); Lymphocytes Percent Auto 17.9 % (18.3-44.2); Mean Corpuscular HGB Conc 32.5 g/dl (32-36); Mean Corpuscular Hemoglobin 32.6 pg (26-34); Mean Corpuscular Volume 100.3 fl (80-100); Mean Platelet Volume 11.1 fl (7.4-10.4); Monocytes Absolute Auto 0.6 K/mm3 (0.1-0.6); Monocytes Percent Auto 9.7 % (2.6-8.5); Neutrophils Absolute Auto 4.5 K/mm3 (1.3-6.7); Neutrophils Percent Auto 70.5 % (45.5-73.1); Platelet Count Result 198 k/mm3 (150-375); Red Blood Count 3.65 M/mm3 (4.2-5.4); Red Cell Distribution Width 14.4 % (11.5-14.5); White Blood Count 6.4 K/mm3 (4.5-10.0)
[2024-09-29 06:49] LABS: Alanine Aminotransferase 20 U/L (6-35); Albumin Level 3.3 g/dL (3.5-5.1); Alkaline Phosphatase 70 U/L (38-126); Anion Gap 0 mmol/L (4-12); Aspartate Amino Transferase 24 U/L (14-36); Bilirubin,Total 0.3 mg/dL (0.2-1.3); Blood Urea Nitrogen 22 mg/dL (7-17); Calcium 8.7 mg/dL (8.4-10.2); Carbon Dioxide 33 mmol/L (22-30); Chloride 106 mmol/L (98-107); Estimated CRCL calculation 55 ml/min; Estimated Glomerular Filt Rate > 60; Glucose 98 mg/dL (65-110); Potassium 3.4 mmol/L (3.4-5.0); Sodium 139 mmol/L (137-145)
[2024-09-29 07:35] LABS: Glucose Point of Care 89 mg/dl (65-105)
[2024-09-29] MEDS: FLUTICASONE/SALMETEROL 115-21 MCG INHALER 1 PUFF 2 PUFF INHALATION (07:57)
--- NOTE | 2024-09-29 08:41 | PM.IMPN ---
Progress Note: A&P Assessment and Plan (1) Acute respiratory failure with hypoxia: Code(s): J96.01 - Acute respiratory failure with hypoxia Status: Acute Assessment and Plan: Per chart review, [facility] found patient to have a SpO2 83% on 3L NC. Patient has been on 3L NC since Sep 13 after being discharged for pneumonia. - Oxygen supplementation: 3L NC (baseline) - Suspected cause: COPD exacerbation vs pneumonia - EKG: sinus rhthym HR 90 - D dimer: 0.61 on 09/27 - Chest XR: Emphysema with opacities in the bilateral lower lungs which could represent atelectasis, mild pulmonary edema or pneumonia. - Chest CT: 1. Severe emphysema with tiny left pleural effusion and mild bibasilar atelectasis. 2. Unchanged ectatic ascending thoracic aorta measuring up to 4.1 cm maximal diameter. - Chest CTA as patient has elevated dimer and PE has not been ruled out (2) Pneumonia: Code(s): J18.9 - Pneumonia, unspecified organism Status: Inactive Assessment and Plan: - Chest XR: Emphysema with opacities in the bilateral lower lungs which could represent atelectasis, mild pulmonary edema or pneumonia. - Chest CT: 1. Severe emphysema with tiny left pleural effusion and mild bibasilar atelectasis. 2. Unchanged ectatic ascending thoracic aorta measuring up to 4.1 cm maximal diameter. - Complicating Factors: COPD on chronic oxygen supplementation (3L NC) - started on CAP tx: azithromycin ceftriaxone on 09/27 - Viral PCR: negative for Flu/COVID/RSV - Monitor vital signs, I&Os, neuro status and patient is a fall risk - Follow WBC, serum electrolytes, temperature curves and cultures (3) Chronic obstructive pulmonary disease, unspecified: Qualifiers: COPD type: unspecified COPD Qualified Code(s): J44.9 - Chronic obstructive pulmonary disease, unspecified Code(s): J44.9 - Chronic obstructive pulmonary disease, unspecified Status: Acute Assessment and Plan: - Started on azithromycin 500 mg daily on 09/27 - Duonebz q6H and Albuterol q2H prn - Solu-Medrol x1, followed by prednisone - Monitor vital signs, I&Os, neuro status and patient is a fall risk - Monitor serum electrolytes, cultures and CBC - Monitor Oxygen saturation, Oxygen via NC; wean oxygen as tolerated, keep SpO2 greater than 88% (4) Lewy body dementia: Qualifiers: Dementia severity: mild Dementia behavioral or psychological symptom: with psychotic disturbance Qualified Code(s): G31.83 - Neurocognitive disorder with Lewy bodies; F02.A2 - Dementia in other diseases classified elsewhere, mild, with psychotic disturbance Code(s): G31.83 - Neurocognitive disorder with Lewy bodies; F02.80 - Dementia in other diseases classified elsewhere, unspecified severity, without behavioral disturbance, psychotic disturbance, mood disturbance, and anxiety Status: Acute Assessment and Plan: Continue home medications Ativan p.r.n. for agitation (5) Hyperlipidemia, unspecified: Qualifiers: Hyperlipidemia type: mixed hyperlipidemia Qualified Code(s): E78.2 - Mixed hyperlipidemia Code(s): E78.5 - Hyperlipidemia, unspecified Status: Acute Assessment and Plan: Continue atorvastatin 40 mg daily (6) Hyperglycemia: Code(s): R73.9 - Hyperglycemia, unspecified Status: Acute Assessment and Plan: No history of diabetes, likely due to steroid Accu-Cheks AC and HS SSI Hemoglobin A1c 5.7 Subjective Date/time seen: 09/29/24 08:41 Interval history: 78 year old female with past medical history of hypertension, COPD, osteoporosis, hyperlipidemia, recurrent cold sores and benign paroxysmal positional vertigo presents to the hospital for shortness of breath. Review of Systems Review of Systems: ROS unobtainable: Yes unobtainable due to mental status Exam Narrative: General: female in no acute respiratory distress who is nontoxic appearing, lying semi recumbent in bed. HEENT: Normocephalic. Atraumatic. Extraocular movement intact. Sclera clear and anicteric. No facial asymmetry. Chest: Lungs are clear to auscultation bilaterally. No wheezes or crackles. CV: Heart was regular rate and rhythm. S1-S2. No murmurs, gallops, or rubs. Abd: Abdomen was soft. Nontender. Nondistended. Positive bowel sounds. No organomegaly or masses. Ext: No clubbing, cyanosis, or edema. 2+ DP pulses bilaterally. Neuro: Patient is alert (baseline). Cranial nerves 2-12 are intact. Speech is clear. Objective Data Vital Signs Vital Signs: Vital Signs - 24 hr 09/28/24 08:46 09/28/24 09:02 09/28/24 11:33 Temperature Pulse Rate 62 Respiratory Rate Blood Pressure Pulse Oximetry Oxygen Delivery Nasal Cannula Nasal Cannula Oxygen Flow Rate 2 2 09/28/24 13:40 09/28/24 14:00 09/28/24 14:21 Temperature 98 F Pulse Rate 79 94 82 Respiratory Rate 20 22 H 20 Blood Pressure 120/71 Pulse Oximetry 95 Oxygen Delivery Oxygen Flow Rate 09/28/24 20:00 09/28/24 21:25 09/28/24 21:41 Temperature 98.2 F Pulse Rate 78 76 78 Respiratory Rate 18 20 20 Blood Pressure 135/75 Pulse Oximetry 94 Oxygen Delivery Oxygen Flow Rate 09/28/24 21:43 09/28/24 23:28 09/29/24 02:21 Temperature 97.4 F L Pulse Rate 76 81 75 Respiratory Rate 20 20 Blood Pressure 146/96 H Pulse Oximetry 92 95 Oxygen Delivery Nasal Cannula Oxygen Flow Rate 2 09/29/24 02:36 09/29/24 04:00 09/29/24 07:59 Temperature 97.3 F L Pulse Rate 76 92 Respiratory Rate 20 20 Blood Pressure 148/77 H Pulse Oximetry 97 94 Oxygen Delivery Nasal Cannula Oxygen Flow Rate 3 09/29/24 07:59 09/29/24 08:00 09/29/24 08:14 Temperature 96.6 F L Pulse Rate 89 80 86 Respiratory Rate 20 22 H 20 Blood Pressure 146/74 H Pulse Oximetry 93 Oxygen Delivery Oxygen Flow Rate Intake/Output Intake/Output: Intake & Output 09/26/24 09/27/24 09/28/24 09/29/24 23:59 23:59 23:59 23:59 Intake Total 350 1720 350 Balance 350 1720 350 Meds/Results Medications: Active Medications Generic Name Dose Route Start Last Admin Trade Name Freq PRN Reason Stop Dose Admin Acetaminophen 650 mg 09/27/24 15:45 Acetaminophen 325 Mg Tablet PO Q4H PRN Mild Pain (1-3) or Fever Albuterol/Ipratropium 3 ml 09/27/24 20:00 09/29/24 07:57 Ipratropium 0.5 Mg/Albuterol Sulfate 2.5 Mg Ampul.Neb 3 Ml INHALATION 3 ml Q6HRT KULDEEP Administration Albuterol/Ipratropium 3 ml 09/27/24 15:45 Ipratropium 0.5 Mg/Albuterol Sulfate 2.5 Mg Ampul.Neb 3 Ml INHALATION Q6HRT PRN Shortness Of Breath Or Wheezing Atorvastatin Calcium 40 mg 09/28/24 09:00 09/28/24 08:46 Atorvastatin 40 Mg Tablet PO 40 mg DAILY KULDEEP Administration Dextrose 12.5 gm 09/27/24 17:14 Dextrose 50% 25 Gm/50 Ml Syringe IV PUSH PRN PRN Hypoglycemia Protocol Divalproex Sodium 250 mg 09/27/24 23:05 09/28/24 21:[address] 250 Mg Tabec PO 250 mg Q12HR KULDEEP Administration Docusate Sodium 100 mg 09/28/24 09:00 09/28/24 08:45 Docusate Sodium 100 Mg Capsule PO 100 mg DAILY KULDEEP Administration Enoxaparin Sodium 40 mg 09/28/24 09:00 09/28/24 08:48 Enoxaparin 40 Mg/0.4 Ml Syringe SUB-Q 40 mg DAILY KULDEEP Administration Glucagon 1 mg 09/27/24 17:14 Glucagon For Inj 1 Mg Vial IM PRN PRN Hypoglycemia Protocol Glucose 15 gm 09/27/24 17:14 Glucose Oral Gel 15 Gm Of Glucse In 37.5 Gm Tube PO PRN PRN Hypoglycemia Protocol Guaifenesin/Dextromethorphan 10 ml 09/28/24 01:00 09/29/24 06:30 Guaifenesin/Dextromethorphan 10 Ml Udc PO 10 ml Q4HR KULDEEP Administration Ceftriaxone Sodium 1 gm in 50 mls @ 100 mls/hr 09/28/24 13:00 09/28/24 12:42 Rocephin 1 Gm/Ns 50 Ml IVPB 100 mls/hr Q24H KULDEEP Administration Azithromycin 500 mg in 250 mls @ 250 mls/hr 09/28/24 14:00 09/28/24 13:19 Zithromax IVPB 250 mls/hr Q24H KULDEEP Administration Dextrose 1,000 mls @ 100 mls/hr 09/27/24 17:14 Dextrose 5% 1,000 Ml IVPB PRN PRN Hypoglycemia Protocol Insulin Aspart 2 - 5 units 09/28/24 08:00 09/28/24 17:01 Insulin Aspart (*Bkc) 100 Units/Ml SUB-Q Not Given TIDWM KULDEEP Protocol Insulin Aspart 1 - 2 units 09/27/24 21:00 09/28/24 21:03 Insulin Aspart (*Bkc) 100 Units/Ml SUB-Q Not Given HS [facility] Protocol Lorazepam 0.5 mg 09/27/24 23:04 Lorazepam (*Crx) 0.5 Mg Tablet PO Q12H PRN anxiety Metoprolol Succinate 100 mg 09/28/24 09:00 09/28/24 08:46 Metoprolol Succinate Ext Rel 100 Mg Tabcr PO 100 mg DAILY KULDEEP Administration Miscellaneous Information 1 each 09/28/24 00:01 Hold Home Spiriva? Duplicate Anticholinergics With Duoneb XX 10/28/24 00:00 [facility] Non-Formulary Medication 1 cap 09/28/24 09:00 Tiotropium [place] INHALATION 10/28/24 08:59 DAILY [facility] Prednisone 40 mg 09/28/24 08:00 09/28/24 08:45 Prednisone 20 Mg Tablet PO 10/03/24 07:59 40 mg DAILY@0800 KULDEEP Administration Rivastigmine 1 patch 09/28/24 09:00 09/28/24 08:47 Rivastigmine Tartrate 4.6 Mg Patch TRANSDERM 1 patch DAILY KULDEEP Administration Fluticasone/Salmeterol 2 puff 09/28/24 08:00 09/29/24 07:57 Fluticasone/Salmeterol 115-21 Mcg Inhaler 1 Puff INHALATION 2 puff Q12HRT KULDEEP Administration Radiology Results: ITS Impressions Chest X-Ray 09/27/24 11:07 IMPRESSION: 1. Emphysema with opacities in the bilateral lower lungs which could represent atelectasis, mild pulmonary edema or pneumonia. Chest CT 09/27/24 12:28 IMPRESSION: 1. Severe emphysema with tiny left pleural effusion and mild bibasilar atelectasis. 2. Unchanged ectatic ascending thoracic aorta measuring up to 4.1 cm maximal diameter. Labs Labs: Laboratory Results - last 24 hr 09/28/24 09/28/24 09/28/24 11:34 16:45 20:06 WBC RBC Hgb Hct MCV MCH MCHC RDW Plt Count MPV Immature Gran % (Auto) Neut % (Auto) Lymph % (Auto) [place] % (Auto) Eos % (Auto) Baso % (Auto) Lymph # (Auto) [place] # (Auto) Eos # (Auto) Baso # (Auto) Abs Immat Gran (auto) Absolute Neuts (auto) Absolute Nucleated RBC Nucleated RBC % Sodium Potassium Chloride Carbon Dioxide Anion Gap BUN Creatinine Estim Creat Clear Calc Estimated GFR Glucose POC Capillary Glucose 115 H 153 H 149 H Calcium Total Bilirubin AST ALT Alkaline Phosphatase Total Protein Albumin 09/29/24 09/29/24 06:20 07:23 WBC 6.4 RBC 3.65 L Hgb 11.9 L Hct 36.6 L MCV 100.3 H MCH 32.6 MCHC 32.5 RDW 14.4 Plt Count 198 MPV 11.1 H Immature Gran % (Auto) 1.4 H Neut % (Auto) 70.5 Lymph % (Auto) 17.9 L [place] % (Auto) 9.7 H Eos % (Auto) 0.2 Baso % (Auto) 0.3 Lymph # (Auto) 1.14 [place] # (Auto) 0.6 Eos # (Auto) 0.0 Baso # (Auto) 0.0 Abs Immat Gran (auto) 0.09 H Absolute Neuts (auto) 4.5 Absolute Nucleated RBC 0.000 Nucleated RBC % 0.0 Sodium 139 Potassium 3.4 Chloride 106 Carbon Dioxide 33 H Anion Gap 0 L BUN 22 H Creatinine 0.70 Estim Creat Clear Calc 55 Estimated GFR > 60 Glucose 98 POC Capillary Glucose 89 Calcium 8.7 Total Bilirubin 0.3 AST 24 ALT 20 Alkaline Phosphatase 70 Total Protein 6.0 L Albumin 3.3 L Quality VTE Prophylaxis VTE prophylaxis: mechanical ordered and pharmacologic ordered
[2024-09-29] MEDS: METOPROLOL SUCCINATE EXT REL 100 MG TABCR PO (09:13)
[2024-09-29] MEDS: predniSONE 20 MG TABLET 40 MG PO (09:13)
[2024-09-29] MEDS: DIVALPROEX SODIUM DR 250 MG TABEC PO (09:13)
[2024-09-29] MEDS: DOCUSATE SODIUM 100 MG CAPSULE PO (09:13)
[2024-09-29] MEDS: ATORVASTATIN 40 MG TABLET PO (09:13)
[2024-09-29] MEDS: RIVASTIGMINE TARTRATE 4.6 MG PATCH 1 PATCH TRANSDERM (09:14)
[2024-09-29] MEDS: ENOXAPARIN 40 MG/0.4 ML SYRINGE SUB-Q (09:14)
[2024-09-29 11:29] LABS: Glucose Point of Care 109 mg/dl (65-105)
[2024-09-29] MEDS: AZITHROMYCIN 500 MG/NS 250 ML 500 MG/250 ML BAG 250 MG IVPB (13:01)
--- NOTE | 2024-09-29 14:14 | P.DS_ITS ---
DS: Admitting Diagnosis Discharge Date 09/29/2024 Admitting Diagnosis acute respiratory failure with hypoxia pneumonia chronic obstructive pulmonary disease hyperlipidemia hypoglycemia Lewy body dementia DS: Discharge Diagnosis Discharge Diagnosis (1) Acute respiratory failure with hypoxia: Code(s): J96.01 - Acute respiratory failure with hypoxia Status: Acute (2) Pneumonia: Code(s): J18.9 - Pneumonia, unspecified organism Status: Inactive (3) Chronic obstructive pulmonary disease, unspecified: Qualifiers: COPD type: unspecified COPD Qualified Code(s): J44.9 - Chronic obstructive pulmonary disease, unspecified Code(s): J44.9 - Chronic obstructive pulmonary disease, unspecified Status: Acute (4) Lewy body dementia: Qualifiers: Dementia behavioral or psychological symptom: with psychotic disturbance Dementia severity: mild Qualified Code(s): G31.83 - Neurocognitive disorder with Lewy bodies; F02.A2 - Dementia in other diseases classified elsewhere, mild, with psychotic disturbance Code(s): G31.83 - Neurocognitive disorder with Lewy bodies; F02.80 - Dementia in other diseases classified elsewhere, unspecified severity, without behavioral disturbance, psychotic disturbance, mood disturbance, and anxiety Status: Acute (5) Hyperlipidemia, unspecified: Qualifiers: Hyperlipidemia type: mixed hyperlipidemia Qualified Code(s): E78.2 - Mixed hyperlipidemia Code(s): E78.5 - Hyperlipidemia, unspecified Status: Acute (6) Hyperglycemia: Code(s): R73.9 - Hyperglycemia, unspecified Status: Acute DS: Summary Hospital Course Reason for hospitalization: acute respiratory failure with hypoxia pneumonia chronic obstructive pulmonary disease hyperlipidemia hypoglycemia Lewy body dementia Hospital Course: 78 year old female with past medical history of hypertension, COPD, osteoporosis, hyperlipidemia, recurrent cold sores and benign paroxysmal positional vertigo presents to the hospital for shortness of breath. Per chart review, shelter found patient to have a SpO2 83% on 3L NC. Patient has been on 3L NC since Sep 13, 2024 after being discharged for pneumonia. D dimer elevated. Chest XR showed emphysema with opacities in the bilateral lower lungs which could represent atelectasis, mild pulmonary edema or pneumonia. Chest CT showed severe emphysema with tiny left pleural effusion and mild bibasilar atelectasis and unchanged ectatic ascending thoracic aorta measuring up to 4.1 cm maximal diameter. Patient was started on IV antibiotics for pneumonia and steroids for COPD exacerbation. Patient was able to be weaned back to her baseline oxygen supplementation prior to discharge. Given that patients D dimer was elevated a chest CTA was obtained to rule out PE. Chest CTA was negative. At time of discharge patient was back to her baseline mental status. Patient discharged in a stable condition to her nursing facility. She is to follow up with her PCP in 1 week. Status at Discharge Functional status at discharge: uses cane/walker Time Spent with Patient Time attestation: Total time spent providing and/or coordinating discharge services: Time spent: Greater than 30 minutes Exam Narrative: AF HR 74 RR 22 SpO2 92 3L NC baseline BP 134/66 General: female in no acute respiratory distress who is nontoxic appearing, lying semi recumbent in bed. HEENT: Normocephalic. Atraumatic. Extraocular movement intact. Sclera clear and anicteric. No facial asymmetry. Chest: Lungs are clear to auscultation bilaterally. No wheezes or crackles. CV: Heart was regular rate and rhythm. S1-S2. No murmurs, gallops, or rubs. Abd: Abdomen was soft. Nontender. Nondistended. Positive bowel sounds. No organomegaly or masses. Ext: No clubbing, cyanosis, or edema. 2+ DP pulses bilaterally. Neuro: Patient is alert to self able to hold a conversation (baseline). Speech is clear. DS: Data Data Completed and Pending Completed studies during hospitalization: Chest XR Chest CT Chest CTA Labs on day of discharge: Labs from last 24 hours 09/29/24 09/29/24 09/29/24 11:16 07:23 06:20 WBC 6.4 RBC 3.65 L Hgb 11.9 L Hct 36.6 L MCV 100.3 H MCH 32.6 MCHC 32.5 RDW 14.4 Plt Count 198 MPV 11.1 H Immature Gran % (Auto) 1.4 H Neut % (Auto) 70.5 Lymph % (Auto) 17.9 L [place] % (Auto) 9.7 H Eos % (Auto) 0.2 Baso % (Auto) 0.3 Lymph # (Auto) 1.14 [place] # (Auto) 0.6 Eos # (Auto) 0.0 Baso # (Auto) 0.0 Abs Immat Gran (auto) 0.09 H Absolute Neuts (auto) 4.5 Absolute Nucleated RBC 0.000 Nucleated RBC % 0.0 Sodium 139 Potassium 3.4 Chloride 106 Carbon Dioxide 33 H Anion Gap 0 L BUN 22 H Creatinine 0.70 Estim Creat Clear Calc 55 Estimated GFR > 60 Glucose 98 POC Capillary Glucose 109 H 89 Calcium 8.7 Total Bilirubin 0.3 AST 24 ALT 20 Alkaline Phosphatase 70 Total Protein 6.0 L Albumin 3.3 L 09/28/24 09/28/24 20:06 16:45 WBC RBC Hgb Hct MCV MCH MCHC RDW Plt Count MPV Immature Gran % (Auto) Neut % (Auto) Lymph % (Auto) [place] % (Auto) Eos % (Auto) Baso % (Auto) Lymph # (Auto) [place] # (Auto) Eos # (Auto) Baso # (Auto) Abs Immat Gran (auto) Absolute Neuts (auto) Absolute Nucleated RBC Nucleated RBC % Sodium Potassium Chloride Carbon Dioxide Anion Gap BUN Creatinine Estim Creat Clear Calc Estimated GFR Glucose POC Capillary Glucose 149 H 153 H Calcium Total Bilirubin AST ALT Alkaline Phosphatase Total Protein Albumin Preliminary micro results at discharge 09/27/24 10:48 Blood Culture - Preliminary Blood 09/27/24 10:48 Blood Culture - Preliminary Blood Discharge Plan Discharge Attending physician on discharge: Josiah Martell Consulting providers: Susan Herrera; Minh Sampson; Kameron Sanchez; Kvng Love Discharging Clinician: Kristina Leigh Anticipated Discharge Date/Time: 09/29/24 14:01 Patient Disposition: [facility] Activity: as tolerated Diet: as tolerated and heart healthy Discharge Instructions: Discharge disposition: Patient was admitted to the hospital for hypoxia on her baseline oxygen supplementation of 3 L Diagnosed with pneumonia and COPD exacerbation Patient was started on antibiotics and steroids for treatment Continue oxygen supplementation of 3 L nasal cannula Take medications as prescribed even if feeling better Augmentin , course to be completed on 10/02 Azithromycin , course to be completed on 10/02 Prednisone 40 mg daily, course to be completed on 10/03 Attached is information on these medications Monitor blood pressures Take caution while standing, rising, or moving Change positions slowly taking a break between each position change If you standing feel dizzy sat back down and take a break Encouraged to continue with yearly vaccinations Return to the emergency department if he developed sudden shortness of breath, chest pain, nausea, vomiting, upset stomach or intractable diarrhea Return to the emergency department if you develop fever greater than 101.5 Follow-up with the primary care physician within 1-2 weeks Thank you for [facility] for your healthcare needs Patient Instructions: Antibiotic Form, Prednisone (By mouth), Amoxicil amelia/Clavulanate Potassium (By mouth), Azithromycin (By mouth), Community Acquired Pneumonia (DC) Patient Language: Moroccan Stand Alone Forms: General Discharge Information Follow-up/Referrals: Brendan Richardson MD [Primary Care Provider] - 1 Week Discharge Medications: Continued cholecalciferol (vitamin D3) 10 mcg (400 unit) capsule 10 mcg PO DAILY Women's 50 Plus Multivitamin 400 mcg-500 mg calcium-20 mcg tablet 1 tablet PO DAILY albuterol sulfate 90 mcg/actuation HFA aerosol inhaler 2 puff inhalation QID PRN (Reason: shortness of breath or wheezing) Qty: 8.5 0RF tiotropium bromide 18 mcg capsule, w/inhalation device 1 cap inhalation DAILY Rx Instructions: puncture 1 cap using device; one dose = 2 inhalations All Day Allergy (cetirizine) 10 mg capsule 10 mg PO DAILY PRN (Reason: allergy symptoms) lorazepam [Ativan] 0.5 mg tablet 0.5 mg PO Q12H PRN (Reason: anxiety) metoprolol succinate 100 mg tablet extended release 24 hr 100 mg PO DAILY Qty: 90 1RF atorvastatin 40 mg tablet 40 mg PO DAILY Qty: 90 1RF Spiriva with HandiHaler 18 mcg capsule, w/inhalation device 1 cap inhalation DAILY Qty: 30 5RF Rx Instructions: puncture 1 cap using device; one dose = 2 inhalations fluticasone propion-salmeterol 250-50 mcg/dose blister with device See Rx Instructions .ROUTE .COMPLEX Qty: 60 0RF Dose Instruction: INHALE 1 DOSE BY MOUTH EVERY 12 HOURS Rx Instructions: INHALE 1 DOSE BY MOUTH EVERY 12 HOURS divalproex 250 mg tablet,delayed release (DR/EC) 250 mg PO Q12H Qty: 60 3RF rivastigmine 4.6 mg/24 hour patch 24 hour 4.6 mg transdermal DAILY Qty: 30 0RF penicillin V potassium 500 mg tablet 500 mg PO TID Qty: 30 0RF albuterol sulfate 90 mcg/actuation HFA aerosol inhaler 2 puff inhalation Q4H PRN (Reason: shortness of breath or wheezing) Qty: 6.7 0RF Date of admission: 09/27/24 15:57 Primary Care Provider: Brendan Richardson Admitting Provider: Elie Cordova Attending physician on admission: Kristina Leigh Condition: Stable Hospitalist MIPS Heart Failure (Exclusion) Patient has history of Heart Transplant or Left Ventricular Assistive Device?: No IF YES, STOP HERE Heart Failure (Qualifier) Patient has current or prior documentation of LVEF less than or equal to 40%, or mod/servere depressed LVSF?: No IF NO, STOP HERE
[2024-09-29 16:34] LABS: Glucose Point of Care 149 mg/dl (65-105)
--- OUTSIDE RECORDS SUMMARY | 2024-10-04 07:48 | XMS_ITS | Encounter Summary ---
Author Organization [facility] Address [address] [place] [address] Care Team Providers Care Profile Saw Setup Operator Name Role Phone Brendan Richardson MD Primary Care Provider [phone] Reason for Visit * Reason Onset Date Comments Reschedule 02/19/2022 Encounter Details Date Type Department Care Team (Late st Contact Info) Description 02/19/2022 Telephone [facility] Pulmonology [address] [place] [address] Gretel Zepeda MA Reschedule Social History Tobacco Use Types Packs/Day Years Used Date Smoking Tobacco: Former Cigarettes Q uit: 1998 Smokeless Tobacco: Never AUDIT-C Answer Date Recorded Q1: How often do you have a drink containing alc ohol? 2-4 times a month 01/15/2022 Q2: How many drinks containi ng alcohol do you have on a typical day when you are drinking? 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 Called patient for a third time to reschedule from [facility] to [facility]. Left voicemail, explaining [facility] is no longer in Central office, and would be switching to [facility] at the same date and time of [facility] appointment. Appointment reminder letter being sentout to address on file. documented in this encounter Plan of Treatment Not on file documented as of this encounter Visit Diagnoses Not on filedocumented in this encounter Care Teams Profile Saw Setup Operator Relationship Specialty Start Date End Date Brendan Richardson MD [address] [place] [address] PCP - General Family Medicine 12/26/21 documented as of this encounter
--- OUTSIDE RECORDS SUMMARY | 2024-10-04 07:48 | XMS_ITS | Encounter Summary ---
Author Organization [facility] Address [address] [place] [address] Care Team Providers Care Solar Sales Consultant Name Role Phone Brendan Richardson MD Primary Care Provider Reason for Visit * Reason Onset Date Comments Reschedule 04/16/2022 Encounter Details Date Type Department Care Team (Late st Contact Info) Description 04/16/2022 Telephone [facility] Pulmonology [address] [place] [address] Bettina Guaman MA Reschedule Social History Tobacco Use Types [...] on file 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 documented in this encounter Plan of Treatment Not on file documented as of this encounter Visit Diagnoses Not on filedocumented in this encounter Care Teams Solar Sales Consultant Relationship Specialty Start Date End Date Brendan Richardson MD [address] [place] [address] PCP - General Family Medicine 12/26/21 documented as of this encounter
--- OUTSIDE RECORDS SUMMARY | 2024-10-04 07:48 | XMS_ITS | Encounter Summary ---
Author Organization [facility] Address [address] [facility] [place] [address] Care Team Providers Care Bottom Ironer Name Role Phone Brendan Richardson MD Primary Care Provider [phone] Encounter Details Date Type Department Care Team (Late st Contact Info) Description 10/27/2015 Anesthesia Historic Visit [facility] [address] [place] [address] Social History Tobacco Use Types Packs/Day Years Used Date Smoking Tobacco: Never Assessed Sex and Gender Information Value Date Recorded Sex Assigned at Not on file Gender Identity Not on file Sexual Orientation Not on file documented as of this encounter Plan of Treatment Not on file documented as of this encounter Visit Diagnoses Not on filedocumented in this encounter Care Teams Bottom Ironer Relationship Specialty Start Date End Date Brendan Richardson MD PCP - General 10/14/17 documented as of this encounter
--- OUTSIDE RECORDS SUMMARY | 2024-10-04 07:48 | XMS_ITS | Encounter Summary ---
Author Organization [facility] Address [address] [place] [address] Care Team Providers Care Lathe Operator Name Role Phone Unavailable Primary Care Provider Unavailabl e Encounter Details Date Type Department Care Team (Late st Contact Info) Description 10/16/2021 Lab Requisition [facility] Community Testing [facility] [address] [place] [address] Bar Whatley MD [address] [place] [address] [address] [place], [place] [id number] Social History Tobacco Use Types Packs/Day Years Used Date Smoking Tobacco: Never Assessed Comments Unknown Sex and Gender Information Value Date Recorded Sex Assigned at Not on file Legal Sex Female 10:31 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
--- OUTSIDE RECORDS SUMMARY | 2024-10-04 07:48 | XMS_ITS | Encounter Summary ---
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 * Telephone Encounter - Harini Mariano MD - 03/01/2022 3:29 PM CDT She should still do PFT as that is only way to assess her lung functioning and COPD. The PFT lab can work with her on helping her do PFT in terms of exerting herself. * Telephone Encounter - Iliana Adamson - 03/01/2022 11:07 AM CDT Patient called and wanted to know if she still needed to do the PFT. Dr Burleson ordered it but she is not wanting to exert herself to much while doing the PFT. Please advise if you still want her to complete the testing. documented in this encounter Plan of Treatment Not on file documented as of this encounter Visit Diagnoses Not on filedocumented in this encounter Care Teams Contract Clerk Relationship Specialty Start Date End Date Brendan Richardson MD [address] [place] [address] PCP - General Family Medicine 12/26/21 documented as of this encounter
--- OUTSIDE RECORDS SUMMARY | 2024-10-04 07:48 | XMS_ITS | Encounter Summary ---
Author Organization [facility] Address [address] [facility] [place] [address] Care Team Providers Care Commercial Installer Name Role Phone Brendan Richardson MD Primary Care Provider [phone] Encounter Details Date Type Department Care Team (Late st Contact Info) Description 04/26/2016 Anesthesia Historic Visit [facility] [address] [place] [address] Social History Tobacco Use Types [...] on filedocumented in this encounter Care Teams Commercial Installer Relationship Specialty Start Date End Date Brendan Richardson MD PCP - General 10/14/17 documented as of this encounter
--- OUTSIDE RECORDS SUMMARY | 2024-10-04 07:48 | XMS_ITS | Encounter Summary ---
Author Organization [facility] Address [address] [facility] [address] [place] [address] Care Team Providers Care Programmer Or Analyst Name Role Phone Brendan Richardson MD Primary Care Provider Reason for Visit * Reason Onset Date Comments Reschedule 02/16/2022 Encounter Details Date Type Department Care Team (Late st Contact Info) Description 02/16/2022 Telephone [facility] Pulmonology [address] [facility] [address] [place] [address] Gretel Zepeda MA Reschedule Social [...] on file 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 Called patient a second time in regards of rescheduling upcoming appointment, either in [place] with Dr. Burleson or here in [place] with Dr. Mariano. LVM with our office number so patient can return phone call. documented in this encounter Plan of Treatment Not on file documented as of this encounter Visit Diagnoses Not on filedocumented in this encounter Care Teams Programmer Or Analyst Relationship Specialty Start Date End Date Brendan Richardson MD [address] [place] [address] PCP - General Family Medicine 12/26/21 documented as of this encounter
--- OUTSIDE RECORDS SUMMARY | 2024-10-04 07:48 | XMS_ITS | Encounter Summary ---
Author Organization [facility] Address [address] [facility] [place] [address] Care Team Providers Care Blue Prints Trimmer Name Role Phone Brendan Richardson MD Primary Care Provider [phone] Encounter Details Date Type Department Care Team (Late st Contact Info) Description 04/22/2023 Lab Requisition [facility] [address] [facility] [place] [address] Peri Villalba, [address] [facility] [address] [place] [address] Social History Tobacco Use Types Packs/Day Years Used Date Smoking Tobacco: Former Cigarettes Smokeless Tobacco: Former Quit: 10/25/1995 Alcohol Use Standard Drinks/Week Comments Yes 0.8 (1 standard drink = 0.6 oz p ure alcohol) Sex and Gender Information Value Date Recorded Sex Assigned at Not on file Gender Identity Not on file Sexual Orientation Not on file documented as of this encounter Plan of Treatment Not on file documented as of this encounter Procedures Procedure Name Priority Date/Time Associated Diagnosis Comments DERMATOPATHOLOGY Routine 04/22/2023 8:19 AM CDT documented in this encounter Results * DERMATOPATHOLOGY (04/22/2023 8:19 AM CDT) Case Report Dermatopathology Report ? Case: [id number] ? Authorizing Provider: ??Peri Villalba, DO ?? Collected: ? 04/22/2023 08:19 AM ? Ordering Location: ? [facility] DermPath Lab ? Received: ?04/22/2023 02:10 PM ? Pathologist: ? Mckay Rod MD ? Specimen: ?Skin, right ant lower ext ? 3 4:20 PM CDT DERMATOPATHOLOGY LABORATORY Final Diagnosis Specimen A. 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 The specimen consists of a shave biopsy measuring 4x13x1, 4x8x1, and 23l82b5 mm. Jar 0+. 3 4:20 PM CDT DERMATOPATHOLOGY LABORATORY Microscopic Description Specimen A. SKIN, right ant lower ext: Sections show an endo exophytic crateriform lesion with a keratotic plug, formed by confluent follicle-like structures with relatively large keratinocytes and neutrophilic abscesses. 3 4:20 PM CDT DERMATOPATHOLOGY LABORATORY Disclaimer An external and internal positive and negative controls are appropriate for the histochemical, immunohistochemical and immunofluorescence stain(s) in this case (if any), except where stated explicitly. The performance characteristics of the stain(s) cited in this report were developed and its performance characteristic determined by the Dermatopathology Laboratory at [facility], directed by Dr. Reinier Rod. These tests need not be, and therefore are not, approved by the [place] Food and Drug Administration. The tests are used for clinical purposes. Billing Codes Specimen Charges Stain Charges 46463 1 3 4:20 PM CDT DERMATOPATHOLOGY LABORATORY Embedded Images 3 4:20 PM CDT DERMATOPATHOLOGY LABORATORY Pathology/Cytolo gy TISSUE SPECIMEN FROM SKIN / Unknown 04/22/2023 8:19 AM CDT 04/22/2023 2:10 PM CDT Peri Villalba DO LAB - PATHOLOGY/C YTOLOGY ORDERABLES DERMATOPATHOLOGY LABORATORY [facility] - Department of Dermatology [address] [phone] documented in this encounter Visit Diagnoses Not on filedocumented in this encounter Care Teams Blue Prints Trimmer Relationship Specialty Start Date End Date Brendan Richardson MD PCP - General 10/14/17 documented as of this encounter
--- OUTSIDE RECORDS SUMMARY | 2024-10-04 07:48 | XMS_ITS | Clinical Summary ---
Author Organization [facility] Address [address] [facility] [place] [address] Care Team Providers Care Fresh Foods Cake Decorator Name Role Phone Brendan Richarsdon MD Primary Care Provider [phone] Source Comments [facility],non-owned Affiliates and Associated Physician Practices is amultiple site organization consisting of ambulatory clinics and hospital sitesin [place], [place], [place] and [place]. This disclosure is being madepursuant to the Care Everywhere program and may not contain all information available regarding this patient. Last updated 18.[facility] Allergies Active Allergy Reactions Criticality Noted Date Comments Alendronic Acid Other Low 04/16/2016 Stomach cramos Levofloxacin Other High 10/25/2015 Bruising on around trunk Raloxifene Other Low 04/16/2016 Stomach cramps Medications * Be aware that medications may not be up to date on this document. Alwaysverify current medications with the patient. Medication Sig Dispensed Refills Start Date End Date Status tobramycin-dexamethaso ne (TOBRADEX) 0.3-0.1 % ophthalmic suspension Instill 1 drop into right eye. 04/27/2016 Active tobramycin-dexamethaso ne (TOBRADEX) 0.3-0.1 % ophthalmic ointment Instill 0.5 inches into right eye. 04/27/2016 Active prednisoLONE acetate (PRED FORTE) 1 % ophthalmic suspension Instill 1 drop into right eye. 04/27/2016 Active albuterol (PROVENTIL;VENTOLIN) (2.5 MG/3ML) 0.083% nebulizer solution Inhale 2 puffs by mouth. 04/16/2016 Active Multiple Vitamins-Minerals (CENTRUM SILVER ADULT 50+) TABS Take 1 tablet by mouth DAILY. 04/16/2016 Active Cholecalciferol (VITAMIN D3) 1000 UNITS Take 1 capsule by mouth DAILY. 04/16/2016 Active vitamin E (TOCOPHERYL) 400 UNIT capsule Take 400 Units by mouth DAILY. 04/16/2016 Active Active Problems Problem Noted Date Diagnosed Date Corneal transplant failure 04/26/2016 History of corneal transplant 03/27/2016 Overview (12/30/2017): ICD-10 Update Family History Medical History Relation Name Comments None Known Brother 1 Status: Alive None Known Brother 2 Status: Alive None Known Father car accident Status: d Cataract Mother Status: d None Known Other Status: Alive Relation Name Status Comments Brother 1 Brother 2 Father car accident Mother Other Social History Tobacco Use Types Packs/Day Years Used Date Smoking Tobacco: Former Cigarettes Smokeless Tobacco: Former Quit: 10/25/1995 Alcohol Use Standard Drinks/Week Comments Yes 0.8 (1 standard drink = 0.6 oz p ure alcohol) Sex and Gender Information Value Date Recorded Sex Assigned at Not on file Gender Identity Not on file Sexual Orientation Not on file Last Filed Vital Signs Vital Sign Reading Time Taken Comments Blood Pressure 135/72 04/26/2016 2:45 PM CDT Pulse 64 04/26/2016 3:15 PM CDT Temperature 36.4 ??C (97.6 ??F) 04/26/2016 3:15 PM CD T Respiratory Rate 14 04/26/2016 3:15 PM CDT Oxygen Saturation 98% 04/26/2016 3:15 PM CDT Inhaled Oxygen Concentration - - Weight 76.7 kg (169 lb) 04/26/2016 11:46 AM CDT Height 160 cm (5' 3 ) 04/26/2016 11:46 AM CDT Body Mass Index 29.94 04/26/2016 11:46 AM CDT Plan of Treatment Health Maintenance Due Date Last Done Comments BONE DENSITY TESTING 1945 HEPATITIS C SCREENING 10/05/1964 DTAP/TDAP/TD VACCINES (1 - Tdap) 1965 ZOSTER VACCINE (1 of 2) 1996 PNEUMOCOCCAL VACCINE 65+ (1 of 1 - PCV) 2011 Respiratory Syncytial Virus (RSV) Vaccine Pt: or over 60 yrs (1 - 1-dose 75+ series) 2021 DEPRESSION SCREENING 09/30/2023 MEDICARE AWV ? CALENDAR YEAR 2023 COVID-19 VACCINE (2023-2 5 season) 2024 INFLUENZA VACCINE (#1) 2024 HEPATITIS B VACCINE Aged Out No longe r eligible based on patient's age to complete this topic HIB VACCINE Aged Out No longer eligi ble based on patient's age to complete this topic HPV VACCINE Aged Out No longer eligi ble based on patient's age to complete this topic MENINGOCOCCAL VACCINE Aged Out No chacha bhupendra eligible based on patient's age to complete this topic Care Teams Fresh Foods Cake Decorator Relationship Specialty Start Date End Date Brendan Richardson MD PCP - General 10/14/17
--- OUTSIDE RECORDS SUMMARY | 2024-10-04 07:48 | XMS_ITS | Referral Summary ---
Author Organization [facility] Address [address] [address] Phone Care Team Providers Care Crusher And Blender Operator Name Role Phone Brendan Richardson MD Primary Care Provider [phone] Allergies Active Allergy Reactions Criticality Noted Date Comments Alendronic Acid Other (See comments) Low 04/16/2016 Stomach cramos Levofloxacin Other (See comments) High 10/25/2015 Bruising on around trunk Raloxifene Other (See comments) Low 04/16/2016 Stomach cramps Medications tobramycin-dex AMETHasone (TOBRADEX) ophthalmic solution Administer 1 drop into affected eye(s) 6 Active tobramycin-dex AMETHasone (Tobradex) ophthalmic ointment Apply 0.5 inches to affected eye(s) 6 Active Spiriva with HandiHaler 18 mcg per inhalation capsule 1 capsule daily 2 Active prednisoLONE acetate (PRED FORTE) 1 % ophthalmic suspension Administer 1 drop into affected eye(s) 6 Active metoprolol XL (TOPROL-XL) 100 mg 24 hr tablet Take 100 mg by mouth daily 2 Active fluticasone propion-salmet Geovanny (ADVAIR DISKUS) 250-50 mcg/dose diskus inhaler INHALE 1 DOSE BY MOUTH EVERY 12 HOURS 2 Active cholecalcifero l (VITAMIN D-3) 1,000 unit capsule Take 1 capsule by mouth daily 6 Active atorvastatin (LIPITOR) 40 mg tablet Take 40 mg by mouth daily 2 Active albuterol 2.5 mg /3 mL (0.083 %) nebulizer solution Inhale 2 puffs 6 Active metroNIDAZOLE (METROGEL) 0.75 % gel metronidazole 0.75 % topical gel APPLY EXTERNALLY TWICE DAILY Active meclizine (ANTIVERT) 12.5 mg tablet meclizine 12.5 mg tablet TAKE 1 TABLET BY MOUTH THREE TIMES DAILY NEEDED FOR DIZZINESS Active albuterol HFA (PROVENTIL HFA,VENTOLIN HFA,PROAIR HFA) 90 mcg/actuation inhaler 2 puffs every 4 (four) hours as needed Active Active Problems Problem Noted Date Diagnosed Date Corneal transplant failure 04/26/2016 History of corneal transplant 03/27/2016 Overview (01/15/2022): ICD-10 Update Social History Tobacco Use Types Packs/Day Years [...] of Binge Drinking Not on file 12/29 Personal Safety Answer Date Recorded Getting School Help Needed Not on file 11/30 Comments Unknown Sex and Gender Information Value Date Recorded Sex Assigned at Not on file 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 Gender Identity Not on file Sexual Orientation Not on file Last Filed Vital Signs Vital Sign Reading Time Taken Comments Blood Pressure 142/88 04/23/2022 9:53 AM CDT Pulse 82 04/23/2022 9:53 AM CDT Temperature - - Respiratory Rate 18 04/23/2022 9:53 AM CDT Oxygen Saturation 95% 04/23/2022 9:53 AM CDT Inhaled Oxygen Concentration - - Weight 76.3 kg (168 lb 3.2 oz) 04/23/2022 9:53 A M CDT Height 157.5 cm (5' 2 ) 04/23/2022 9:53 AM CDT Body Mass Index 30.76 04/23/2022 9:53 AM CDT Plan of Treatment Not on file Insurance [employer] Member Subscriber Plan / Payer ( fective 2021-Present) Name:Zamzam Perea Relation to Subscriber:Self Name:Zamzam Perea Payer ID:[id number] (NAIC) Type:UHC MEDICARE Address: [place] [id number] [place] [phone] MED[employer] Care Teams Crusher And Blender Operator Relationship Specialty Start Date End Date Brendan Richardson MD [address] [place] [id number] PCP - General Family Medicine 12/26/21
--- OUTSIDE RECORDS SUMMARY | 2024-10-04 07:48 | XMS_ITS | Referral Summary ---
Author Organization [facility] Address [address] [place] [address] Care Team Providers Care Communication Manager Name Role Phone Brendan Richardson MD Primary Care Provider Source Comments [facility],non-owned Affiliates and Associated Physician Practices is amultiple site organization consisting of ambulatory clinics and hospital sitesin [place], [place], [place] and [place]. This disclosure is being madepursuant to the Care Everywhere program and may not contain all information available regarding this patient. Last updated 18.[facility] Allergies Active Allergy Reactions Criticality Noted Date [...] corneal transplant 03/27/2016 Overview (12/30/2017): ICD-10 Update Social History Tobacco Use Types [...] 04/26/2016 11:46 AM CDT Plan of Treatment Not on file Care Teams Communication Manager Relationship Specialty Start Date End Date Brendan Richardson MD PCP - General 10/14/17
--- OUTSIDE RECORDS SUMMARY | 2024-10-04 07:48 | XMS_ITS | Encounter Summary ---
Author Organization [facility] Address [address] [place] [address] Care Team Providers Care Mate Ship Name Role Phone Brendan Richardson MD Primary Care Provider [phone] Reason for Visit * Reason Comments COPD New patient Encounter Details Date Type Department Care Team (Late st Contact Info) Description 01/15/2022 10:00 AM CDT Office Visit [facility] Pulmonology [address] [place] [address] Kvng Burleson MD [address] [place] [id number] Centrilobular emphysema (CMS/HCC) (HCC) (Primary Dx); Post-COVID chronic dyspnea; Cigarette nicotine dependence in remission Social History Tobacco Use Types Packs/Day Years [...] on file Legal Sex Female 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 QUALITY TESTER Gender Identity Not on file Sexual Orientation Not on file documented as of this encounter Last Filed Vital Signs Vital Sign Reading Time Taken Comments Blood Pressure 153/96 01/15/2022 10:22 AM CDT Pulse 89 01/15/2022 10:22 AM CDT Temperature - - Respiratory Rate 18 01/15/2022 10:22 AM CDT Oxygen Saturation 95% 01/15/2022 10:22 AM CDT Inhaled Oxygen Concentration - - Weight 72.6 kg (160 lb) 01/15/2022 10:22 AM CDT Height 157.5 cm (5' 2 ) 01/15/2022 10:22 AM CDT Body Mass Index 29.26 01/15/2022 10:22 AM CDT documented in this encounter Progress Notes * Kvng Burleson MD - 01/15/2022 10:00 AM CDT Images from the original note were not included. PULMONARY CLINIC NOTE Visit Date: 01/15/2022 Chief Complaint: Presents today for ??? Dyspnea HPI: Zamzam Perea is a 76 y.o. female w/ PMH of COPD by history, traumatic pneumothorax, h/o SARS-CoV-2, HTN who presents on 01/15/2022 for evaluation of dyspnea. She reports she was diagnosed with COPD in 2008. She has been on Spiriva and Advair since that time. They have helped her significantly. She had SARS-CoV-2 in November of 2021. She had increased cough and dyspnea at that time, increased rescue inhaler usage. She saw her PCP who referred her for post-covid dyspnea. Three weeks following her recovery from COVID she noted her breathing had improved. Interval History: She has since completely recovered to baseline. She continues using her advair and spiriva daily. She denies any cough, wheezing or shortness of breath. She denies any fevers, chills or weight loss. Exposure History: No relevant exposure Past Medical History: Past Medical History: Diagnosis Date ??? Cornea abrasion ??? Hypertension Family History: Family History Problem Relation Age of Onset ??? COPD Mother ??? COPD Father Social History: Former smoker, quit in 1998. Smoked 30 years 1 ppd. Review of Systems: Pertinent positives notes in HPI. Otherwise a 10 pt review of systems is negative. OBJECTIVE: Physical Exam: Vitals: 01/15/22 1022 BP: 153/96 BP Location: Left arm Patient Position: Sitting Pulse: 89 Resp: 18 SpO2: 95% Weight: 72.6 kg (160 lb) Height: 157.5 cm (5' 2 ) General: appears comfortable in no apparent distress Eyes: anicteric, no redness or drainage, EOMI Neck: no thyromegaly or lymphadenopathy Cardiovascular: regular rate and rhythm, no murmurs, no edema or JVD Respiratory: clear to auscultation bilaterally, non labored Gastrointestinal: abdomen is soft and non-tender, + bowel sounds Musculoskeletal: no joint swelling or tenderness Neurologic: No focal deficits Skin: warm and dry Data Review: I have not imaging to review Pulmonary Functions Testing Results: None to review ASSESSMENT AND PLAN 1. Centrilobular emphysema (CMS/HCC) (HCC) - will proceed with pulmonary function testing to establish a baseline and a diagnosis of COPD - for now she will continue her Advair and Spiriva - we discussed the possibility of switching to Trelegy to consolidate her therapy and minimize to once daily treatment - would consider alpha-1 antitrypsin testing in the future - Pulmonary Function Test -[facility]; Full PFT in PFT Lab w/Stress Ox/6 Min WalkTest; Future 2. Post-COVID chronic dyspnea - it seems that her symptoms post COVID have returned to previous baseline - pulmonary function testing as above 3. Cigarette nicotine dependence in remission - the patient is not a candidate for lung cancer screening with low-dose CT scan of the chest due to her remote nature of her smoking history Kvng Burleson MD There may be syntax/grammatical errors in this note due to the use of voice recognition software. documented in this encounter Plan of Treatment Not on file documented as of this encounter Visit Diagnoses Diagnosis Centrilobular emphysema (HCC)- Primary Post-COVID chronic dyspnea Cigarette nicotine dependence in remission documented in this encounter Historical Medications * This list may reflect changes made after this encounter. meclizine (ANTIVERT) 12.5 mg tablet meclizine 12.5 mg tablet TAKE 1 TABLET BY MOUTH THREE TIMES DAILY NEEDED FOR DIZZINESS metroNIDAZOLE (METROGEL) 0.75 % gel metronidazole 0.75 % topical gel APPLY EXTERNALLY TWICE DAILY albuterol 2.5 mg /3 mL (0.083 %) nebulizer solution Inhale 2 puffs 04/16/2016 atorvastatin (LIPITOR) 40 mg tablet Take 40 mg by mouth daily 12/28/2021 cholecalciferol (VITAMIN D-3) 1,000 unit capsule Take 1 capsule by mouth daily 04/16/2016 fluticasone propion-salmeter oL (ADVAIR DISKUS) 250-50 mcg/dose diskus inhaler INHALE 1 DOSE BY MOUTH EVERY 12 HOURS 12/30/2021 metoprolol XL (TOPROL-XL) 100 mg 24 hr tablet Take 100 mg by mouth daily 12/28/2021 prednisoLONE acetate (PRED FORTE) 1 % ophthalmic suspension Administer 1 drop into affected eye(s) 04/27/2016 Spiriva with HandiHaler 18 mcg per inhalation capsule 1 capsule daily 12/28/2021 tobramycin-dexAM ETHasone (Tobradex) ophthalmic ointment Apply 0.5 inches to affected eye(s) 04/27/2016 tobramycin-dexAM ETHasone (TOBRADEX) ophthalmic solution Administer 1 drop into affected eye(s) 04/27/2016 azithromycin (ZITHROMAX) 250 mg tablet TAKE 2 TABLETS BY MOUTH ON DAY 1, AND THEN TAKE 1 TABLET BY MOUTH ONCE A DAY ON DAY 2 THROUGH DAY 5 10/26/2021 2 cefuroxime (CEFTIN) 500 mg tablet Take 500 mg by mouth every 12 (twelve) hours for 10 days 12/11/2021 2 dexAMETHasone (DECADRON) 6 mg tablet 10/17/2021 2 predniSONE (DELTASONE) 20 mg tablet TAKE 1 TABLET BY MOUTH ONCE DAILY FOR 5 DAYS 12/11/2021 2 added in this encounter Care Teams Mate Ship Relationship Specialty Start Date End Date Brendan Richardson MD [address] [place] [id number] PCP - General Family Medicine 12/26/21 documented as of this encounter
--- OUTSIDE RECORDS SUMMARY | 2024-10-04 07:48 | XMS_ITS | Clinical Summary ---
Author Organization [facility] Care Team Providers Care Slot Attendant Name Role Phone Unavailable Primary Care Provider Unavailabl e Social History Tobacco Use Types Packs/Day Years Used Date Smoking Tobacco: Never Assessed Comments Unknown Sex and Gender Information Value Date Recorded Sex Assigned at Not on file Legal Sex Female 10:31 AM QUALITY REVIEW SPECIALIST Gender Identity Not on file Sexual Orientation Not on file Plan of Treatment Health Maintenance Due Date Last Done Comments DEXA Bone Density 1945 Hepatitis C Virus (HCV) Screening 1945 TdaP Immunization 1945 Zoster Immunization (1 of 2) 1996 Pneumococcal Immunization (50+ years) (1 of 1 - PCV) 2011 SARS-COV-2 Immunization ( season) 2023 07/26/2021, 12/16/2020, 11/18/2020 Influenza Immunization (Season Ended) 2024 07/17/2021, 07/20/2020, 07/14/2019, Additional history exists Hepatitis B Immunization Aged Out No longer eligible based on patient's age to complete this topic Meningococcal Immunization (ACWY) Aged Out No longer eligible based on patient's age to complete this topic Rotavirus Immunization Aged Out No lo nger eligible based on patient's age to complete this topic
--- OUTSIDE RECORDS SUMMARY | 2024-10-04 07:48 | XMS_ITS | Encounter Summary ---
Author Organization [facility] Address [address] [facility] [facility] [place] [address] Care Team Providers Care Bill Distributor Name Role Phone Brendan Richardson MD Primary Care Provider [phone] Encounter Details Date Type Department Care Team (Late st Contact Info) Description 06/25/2018 Lab Requisition [facility] Care DermPath Lab [address] [place] [id number] Peri Villalba, DO [address] [facility] [address] [place] [address] Social History Tobacco Use Types Packs/Day Years [...] Procedure Name Priority Date/Time Associated Diagnosis Comments DERMATOPATH TECHNICAL REPORT Routine 06/23/2018 12:00 AM CDT documented in this encounter Results * DERMATOPATH TECHNICAL REPORT (06/23/2018 12:00 AM CDT) Case Report Dermatopathology Report ? Case: [id number] ? Authorizing Provider: ??Peri Villalba, ? Collected: ? 06/23/2018 12:00 AM ? Pathologist: ? Dorothy Mancini MD ? Received: ?06/25/2018 06:12 AM ? Specimens: ?? A) - Skin, left anterior lower leg ? B) - Skin, mid back ? 11:49 AM CDT DERMATOPATHOLOGY LABORATORY Addendum 1 At the request of the diagnosing physician, the technical component for MART-1/Melan A on Specimen B was performed by [facility] Dermatopathology Laboratory. 11:49 AM CDT DERMATOPATHOLOGY LABORATORY Addendum electronically signed by Dorothy Mancini MD on 06/27/2018 at 11:49 AM Clinical History A: Poro vs BCC vs SCCIS vs LPLK. Irreg color. B: Lentigo vs nevus R/O atypia. Irreg color. 11:49 AM CDT DERMATOPATHOLOGY LABORATORY Gross Description Specimen A: Received is one formalin filled container labeled with the patient's name and designated left anterior lower leg. The specimen consists of a shave measuring [id number]. Jar 0. Specimen B: Received is one formalin filled container labeled with the patient's name and designated mid back. The specimen consists of a shave measuring [id number]. Jar 0. [facility] Dermatopathology Laboratory performed the technical component only. 09/28/201 8 11:49 AM CDT DERMATOPATHOLOGY LABORATORY Embedded Images 8 11:49 AM CDT DERMATOPATHOLOGY LABORATORY DISCLAIMER An external and internal positive and negative controls are appropriate for the histochemical, immunohistochemical and immunofluorescence stain(s) in this case (if any), except where stated explicitly. The performance characteristics of the stain(s) cited in this report were developed and its performance characteristic determined by the Dermatopathology Laboratory at [facility]. These tests need not be, and therefore are not, approved by the [place] Food and Drug Administration. The tests are used for clinical purposes. 8 11:49 AM CDT DERMATOPATHOLOGY LABORATORY Pathology/Cytology TISSUE SPECIMEN FROM SKIN / Unknown 06/23/2018 06/25/2018 6:12 AM CDT Miscellaneous samples (specimen) TISSUE SPECIMEN FROM SKIN / Unknown 06/23/2018 06/25/2018 6:12 AM CDT Peri Villalba DO LAB - PATHOLOGY/C YTOLOGY ORDERABLES DERMATOPATHOLOGY LABORATORY [facility] - Department of Dermatology [address] [place] [address] 5th Floor Lab [address] [phone] documented in this encounter Visit Diagnoses Not on filedocumented in this encounter Care Teams Bill Distributor Relationship Specialty Start Date End Date Brendan Richardson MD PCP - General 10/14/17 documented as of this encounter
--- OUTSIDE RECORDS SUMMARY | 2024-10-04 07:48 | XMS_ITS | Clinical Summary ---
Author Organization [facility] Address [address] [address] Phone Care Team Providers Care Dexigraph Operator Name Role Phone Brendan Richardson MD Primary Care Provider [phone] Allergies Active Allergy Reactions Criticality Noted Date [...] corneal transplant 03/27/2016 Overview (01/15/2022): ICD-10 Update Surgical History Surgery Date Site/Laterality Comments HYSTERECTOMY Medical History Medical History Date Comments Cornea abrasion Hypertension Family History Medical History Relation Name Comments COPD Father COPD Mother Relation Name Status Comments Father Mother Social History Tobacco Use Types Packs/Day Years [...] on file Legal Sex Female 11:17 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 Gender Identity Not on file Sexual Orientation Not on file Obstetrics History Last Filed Vital Signs Vital Sign Reading [...] 04/23/2022 9:53 AM CDT Plan of Treatment Health Maintenance Due Date Last Done Comments Depression Screening 1945 Fall Risk Assessment 1945 Hepatitis C Screening 1945 Osteoporosis Screening-Bone Density Scan 1945 DTaP/Tdap/Td Vaccine (1 - Tdap) 1957 Hepatitis B Screening 1964 Zoster Vaccine (1 of 2) 1996 Pneumococcal vaccine 65+ (1 of 1 - PCV) 2011 Well Visit 65+ 2011 Covid-19 Vaccine (2023-2 5 season) 2024 07/26/2021, 12/16/2020, 11/18/2020 Influenza Vaccine (#1) 2024 , 07/20/2020, 07/14/2019, Additional history exists Insurance MED[employer]IONS MED[employer]IONS Care Teams Dexigraph Operator Relationship Specialty Start Date End Date Brendan Richardson MD [address] [place] [address] [phone] PCP - General Family Medicine 12/26/21
--- OUTSIDE RECORDS SUMMARY | 2024-10-04 07:48 | XMS_ITS | Encounter Summary ---
Author Organization [facility] Address [address] [place] [address] Care Team Providers Care Commissioner Of Relocation Services Name Role Phone Unavailable Primary Care Provider Unavailabl e Encounter Details Date Type Department Care Team (Late st Contact Info) Description 09/19/2020 11:00 AM TYPING OFFICE WORKER Rapid Evaluation [place] [facility] Community Testing [facility] [address] [place] [address] Social History Tobacco Use Types Packs/Day Years Used Date Smoking Tobacco: Never Assessed Comments Unknown Sex and Gender Information Value Date Recorded Sex Assigned at Not on file Legal Sex Female 10:31 AM TYPING OFFICE WORKER Gender Identity Not on file Sexual Orientation Not on file documented as of this encounter Plan of Treatment Not on file documented as of this encounter Visit Diagnoses Not on filedocumented in this encounter
--- OUTSIDE RECORDS SUMMARY | 2024-10-04 07:48 | XMS_ITS | Encounter Summary ---
Author Organization [facility] Address [address] [facility] [place] [address] Care Team Providers Care Sustainable Landscape Architect Name Role Phone Brendan Richardson MD Primary Care Provider [phone] Encounter Details Date Type Department Care Team (Late st Contact Info) Description 04/19/2016 Anesthesia Historic Visit [facility] OR [facility] [address] [place] [address] Social History Tobacco Use Types [...] on filedocumented in this encounter Care Teams Sustainable Landscape Architect Relationship Specialty Start Date End Date Brendan Richardson MD PCP - General 10/14/17 documented as of this encounter
--- OUTSIDE RECORDS SUMMARY | 2024-10-04 07:48 | XMS_ITS | Encounter Summary ---
Author Organization [facility] Address [address] [place] [address] Care Team Providers Care Skin Fitter Name Role Phone Unavailable Primary Care Provider Unavailabl e Encounter Details Date Type Department Care Team (Late st Contact Info) Description 10/16/2021 12:00 PM CLERK ANALYST Rapid Evaluation [place] [facility] Community Testing [facility] [address] [place] [address] Social History Tobacco Use Types Packs/Day Years Used Date Smoking Tobacco: Never Assessed Comments Unknown Sex and Gender Information Value Date Recorded Sex Assigned at Not on file Legal Sex Female 10:31 AM CLERK ANALYST Gender Identity Not on file Sexual Orientation Not on file documented as of this encounter Plan of Treatment Not on file documented as of this encounter Visit Diagnoses Not on filedocumented in this encounter
--- OUTSIDE RECORDS SUMMARY | 2024-10-04 07:48 | XMS_ITS | Encounter Summary ---
Author Organization [facility] Address [address] [place] [address] Care Team Providers Care Sub Prior Name Role Phone Brendan Richardson MD Primary Care Provider [phone] Reason for Visit * Reason Comments Centrilobular emphysema Follow up Encounter Details Date Type Department Care Team (Late st Contact Info) Description 04/23/2022 10:15 AM CDT Office Visit [facility] Pulmonology [address] [place] [address] [place] [address] [place] [address] [address] [place] [address] Chronic obstructive pulmonary disease, unspecified COPD type (HCC) (Primary Dx); Dyspnea and respiratory abnormalities; Cigarette nicotine dependence in remission; Pulmonary nodule Social History Tobacco Use Types Packs/Day Years [...] on file Legal Sex Female 11:17 AM APPOINTMENT MANAGER Gender Identity Not on file Sexual Orientation [...] Mass Index 30.76 04/23/2022 9:53 AM CDT documented in this encounter Progress Notes * Harini Mariano MD - 04/23/2022 10:15 AM CDT Images from the original note were not included. PULMONARY CLINIC NOTE Visit Date: 04/23/2022 INTERVAL HISTORY: Presents today for follow-up of ??? COPD Didn't do PFT as she doesn't think its necessary. Dyspnea with heavy exertion. No wheezing or coughing Using advair, albuterol, and spiriva. No upper respiratory symptoms or GERD HPI: Patient is a 76 y.o. female w/ PMH of HTN, HLD, h/o traumatic pneumothorax in 2020 after falling off a deck, h/o COVID-19 in November 2021, HTN who initially presented in December 2021 for dyspnea. Patient was diagnosed with COPD clinically in 2008. Exposure and Social History: 30 pack years, quit in 1998. Review of Systems: Review of Systems Constitutional: Negative for chills and fever. HENT: Negative for nosebleeds. Eyes: Negative for pain. Respiratory: Negative for wheezing. Cardiovascular: Negative for chest pain. Gastrointestinal: Negative for blood in stool. Endocrine: Negative for polydipsia. Genitourinary: Negative for hematuria. Musculoskeletal: Negative for joint swelling. Skin: Negative for rash. Neurological: Negative for seizures. Psychiatric/Behavioral: Negative for behavioral problems. OBJECTIVE: Physical Exam: Vitals: 04/23/22 0953 BP: 142/88 BP Location: Left arm Patient Position: Sitting Pulse: 82 Resp: 18 SpO2: 95% Weight: 76.3 kg (168 lb 3.2 oz) Height: 157.5 cm (5' 2 ) Physical Exam Constitutional: General: She is awake. Appearance: Normal appearance. HENT: Head: Normocephalic and atraumatic. Right Ear: External ear normal. Left Ear: External ear normal. Nose: Comments: External nose normal appearing Eyes: General: No scleral icterus. Conjunctiva/sclera: Conjunctivae normal. Cardiovascular: Rate and Rhythm: Normal rate and regular rhythm. Heart sounds: No friction rub. Pulmonary: Breath sounds: Normal breath sounds. No wheezing. Abdominal: Palpations: Abdomen is soft. Tenderness: There is no abdominal tenderness. Musculoskeletal: General: No signs of injury. Cervical back: No rigidity. Skin: General: Skin is dry. Coloration: Skin is not jaundiced. Neurological: General: No focal deficit present. Mental Status: She is alert. Mental status is at baseline. Psychiatric: Mood and Affect: Mood normal. Behavior: Behavior normal. Data Review: Pulmonary function testing: ??? ASSESSMENT AND PLAN 1. COPD o Continue advair, albuterol, and spiriva o She doesn't want to do PFT currently 2. Dyspnea with exertion, post covid o Feels her dyspnea with exertion is at baseline. Probably related to COPD but she doesn't want to do CT or echo or much other testing unless worsening symptoms 3. Pulmonary nodule o Says she had nodules in past that hadn't enlarged. Last scan was sometime around 2014. Can repeatscan in future if she ever wants. Harini Mariano MD Pulmonary Medicine There may be syntax/grammatical errors in this note due to the use of voice recognition software. documented in this encounter Plan of Treatment Not on file documented as of this encounter Visit Diagnoses Diagnosis Chronic obstructive pulmonary disease, unspecified COPD type (HCC)- Primary Dyspnea and respiratory abnormalities Cigarette nicotine dependence in remission Pulmonary nodule Other diseases of lung, not elsewhere classified documented in this encounter Discontinued Medications Medication Sig Discontinue Reason Start Date End Da te azithromycin (ZITHROMAX) 250 mg tablet TAKE 2 TABLETS BY MOUTH ON DAY 1, AND THEN TAKE 1 TABLET BY MOUTH ONCE A DAY ON DAY 2 THROUGH DAY 5 Therapy completed 10/26/2021 04/23/2022 cefuroxime (CEFTIN) 500 mg tablet Take 500 mg by mouth every 12 (twelve) hours for 10 days Therapy completed 12/11/2021 04/23/2022 dexAMETHasone (DECADRON) 6 mg tablet Therapy completed 10/17/2021 04/23/2022 predniSONE (DELTASONE) 20 mg tablet TAKE 1 TABLET BY MOUTH ONCE DAILY FOR 5 DAYS Therapy completed 12/11/2021 04/23/2022 documented as of this encounter Historical Medications * This list may reflect changes made after this encounter. albuterol HFA (PROVENTIL HFA,VENTOLIN HFA,PROAIR HFA) 90 mcg/actuation inhaler 2 puffs every 4 (four) hours as needed 02/02/2022 added in this encounter Care Teams Sub Prior Relationship Specialty Start Date End Date Brendan Richardson MD [address] [place] [id number] PCP - General Family Medicine 12/26/21 documented as of this encounter
--- OUTSIDE RECORDS SUMMARY | 2024-10-04 07:48 | XMS_ITS | Patient Health Summary ---
Author Organization [facility] Address [address] [place] [address] Care Team Providers Care Parcel Post Weigher Name Role Phone Brendan Richardson MD Primary Care Provider [phone] Note from [facility],non-owned Affiliates and Associated Physician Practices is amultiple site organization consisting of ambulatory clinics and hospital sitesin [place], [place], [place] and [place]. This disclosure is being madepursuant to the Care Everywhere program and may not contain all information available regarding this patient. Last updated 18.[facility] Allergies * Alendronic Acid(Other) -Low Criticality * Levofloxacin(Other) -High Criticality * Raloxifene(Other) -Low Criticality Medications * Be aware that medications may not be up to date on this document. Alwaysverify current medications with the patient. * tobramycin-dexamethasone (TOBRADEX) 0.3-0.1 % ophthalmic suspension(Started 04/27/2016) Instill 1 drop into right eye. * tobramycin-dexamethasone (TOBRADEX) 0.3-0.1 % ophthalmic ointment(Started 04/27/2016) Instill 0.5 inches into right eye. * prednisoLONE acetate (PRED FORTE) 1 % ophthalmic suspension(Started 04/27/2016) Instill 1 drop into right eye. * albuterol (PROVENTIL;VENTOLIN) (2.5 MG/3ML) 0.083% nebulizer solution(Started 04/16/2016) Inhale 2 puffs by mouth. * Multiple Vitamins-Minerals (CENTRUM SILVER ADULT 50+) TABS(Started 04/16/2016) Take 1 tablet by mouth DAILY. * Cholecalciferol (VITAMIN D3) 1000 UNITS(Started 04/16/2016) Take 1 capsule by mouth DAILY. * vitamin E (TOCOPHERYL) 400 UNIT capsule(Started 04/16/2016) Take 400 Units by mouth DAILY. Active Problems Problem Noted Date Diagnosed Date Corneal transplant failure 04/26/2016 History of corneal transplant 03/27/2016 Social History Tobacco Use Types Packs/Day Years [...] Mass Index 29.94 04/26/2016 11:46 AM CDT Procedures * DERMATOPATHOLOGY(Performed 04/22/2023) * DERMATOPATHOLOGY(Performed 04/08/2023) * DERMATOPATHOLOGY(Performed 01/30/2023) * DERMATOPATH TECHNICAL REPORT(Performed 06/23/2018) * CULTURE ANAEROBE(Performed 04/26/2016) * CULTURE FUNGUS OTHER+FUNGUS SMEAR(Performed 04/19/2016) * CULTURE FUNGUS OTHER+FUNGUS SMEAR(Performed 10/27/2015) * PATHOLOGY TISSUE(Performed 10/27/2015) Results * DERMATOPATHOLOGY (04/22/2023 8:19 AM CDT) Only the most recent of3 resultswithin the time period is included. Case Report Dermatopathology Report ? Case: [id number] ? Authorizing Provider: ??Peri Villalba, ?? Collected: ? 04/22/2023 08:19 AM ? [facility] ? Received: ?04/22/2023 02:10 PM [...] a shave biopsy measuring 4x13x1, 4x8x1, and 15b11o9 mm. Jar 0+. 3 4:20 PM CDT [...] characteristic determined by the Dermatopathology Laboratory at [facility], directed by Dr. Reinier Rod. These tests need not be, and therefore are not, approved by the [place] Food and Drug Administration. The tests are used for clinical purposes. Billing Codes Specimen Charges Stain Charges 26479 1 3 4:20 PM CDT DERMATOPATHOLOGY LABORATORY Embedded Images 3 4:20 PM CDT DERMATOPATHOLOGY LABORATORY Pathology/Cytolo gy TISSUE SPECIMEN FROM SKIN / Unknown 04/22/2023 8:19 AM CDT 04/22/2023 2:10 PM CDT Peri Villalba DO LAB - PATHOLOGY/C YTOLOGY ORDERABLES Performing Organization Address [facility]/State/ZIP Co de Phone Number DERMATOPATHOLOGY LABORATORY [facility] - Department of Dermatology [facility] Medicine [address] [place] [address], [address] [phone] * DERMATOPATH TECHNICAL REPORT (06/23/2018 12:00 AM CDT) Case Report Dermatopathology Report ? Case: [id number] ? Authorizing Provider: ??Peri Villalba DO ? Collected: ? 06/23/2018 12:00 AM ? Pathologist: ? Dorothy Mancini MD ? Received: ?06/25/2018 06:12 AM ? Specimens: ?? A) - Skin, left anterior lower leg ? B) - Skin, mid back ? 11:49 AM [facility] DERMATOPATHOLOGY LABORATORY Addendum 1 At the request of the diagnosing physician, the technical component for MART-1/Melan A on Specimen B was performed by [facility] Dermatopathology Laboratory. 11:49 AM [facility] DERMATOPATHOLOGY LABORATORY Addendum electronically signed by Dorothy Mancini MD on 06/27/2018 at 11:49 AM Clinical History A: Poro vs BCC vs SCCIS vs LPLK. Irreg color. B: Lentigo vs nevus R/O atypia. Irreg color. 11:49 AM [facility] DERMATOPATHOLOGY LABORATORY Gross Description Specimen A: Received is one formalin filled container labeled with the patient's name and designated left anterior lower leg. The specimen consists of a shave measuring 95e02x4bk. Jar 0. Specimen B: Received is one formalin filled container labeled with the patient's name and designated mid back. The specimen consists of a shave measuring 4s1o3vf. Jar 0. [facility] Dermatopathology Laboratory performed the technical component only. 11:49 AM [facility] DERMATOPATHOLOGY LABORATORY Embedded Images 11:49 AM [facility] DERMATOPATHOLOGY LABORATORY DISCLAIMER An external and internal positive and negative controls are appropriate for the histochemical, immunohistochemical and immunofluorescence stain(s) in this case (if any), except where stated explicitly. The performance characteristics of the stain(s) cited in this report were developed and its performance characteristic determined by the Dermatopathology Laboratory at [facility]. These tests need not be, and therefore [...] LAB - PATHOLOGY/C YTOLOGY ORDERABLES DERMATOPATHOLOGY LABORATORY [facility] - Department of Dermatology [address] [place] [address] * CULTURE ANAEROBE (04/26/2016 2:40 PM CDT) Culture Anaerobic No Growth at 1 week [facility] Cornea 04/26/2016 2:40 PM CDT 04/26/2016 6:18 PM CDT Narrative [facility] - 05/03/2016 11:57 AM CDT Donor ring Specimen Type->Cornea This culture is aerobic, not anaerobic. Francis Jurado MD LAB - MICROBIOLOGY O RDERABLES Performing Organization Address [facility]/ZIP Co de Phone Number [facility] [address] [place] [address], [facility] [phone] * CULTURE FUNGUS OTHER+FUNGUS SMEAR (04/19/2016 9:46 AM CDT) Only the most recent of2 resultswithin the time period is included. Culture Fungus-Other No Growth Fungi. [facility] Fungus Smear [facility] Comment:no smear - donor rin g Cornea CORNEAL PART / Unknown 04/19/2016 9:46 AM CDT 04/19/2016 7:47 PM CDT Narrative [facility] - 05/22/2016 3:07 PM CDT DONOR CORNEAL RING FOR FUNGAL CULTURE. Specimen Type->Cornea Francis Jurado MD LAB - MICROBIOLOGY O RDERABLES [facility] [address] [phone] * PATHOLOGY TISSUE (10/27/2015 6:09 PM GRAPHICS PRODUCTION SPECIALIST) Surgical Pathology Tissue CLINICAL HISTORY: Corneal endothelial dystrophy. OPERATIVE PROCEDURE: ?? DMEK, intraocular gas. FINAL DIAGNOSIS: EYE, LEFT, CORNEA, KERATOPLASTY: - ? DESCEMET'S MEMBRANE WITH ENDOTHELIAL CELLS GROSS DESCRIPTION: The specimen is received fixed in formalin in one container labeled with the patient's name, Zmazam Perea and left eye Descemet tissue , and consists of a blue and white synthetic brush tip as well as an irregularly-shaped fragment of translucent soft tissue measuring 0.6 x 0.3 x <0.1 cm. ??This tissue is wrapped, marked with hematoxylin, and submitted entirely in cassette A1. MNR/edk MICROSCOPIC DESCRIPTION: The Descemet's membrane has a population of endothelial cells. The PAS stain shows some irregularities compatible with guttata. JL for MANUAL ARTS THERAPY TEACHER/cz The performance characteristics of all immunohistochemical and indirect immunofluorescence stains (if any) cited in this report were determined by the Histopathology Laboratory of [facility].?? Some of these tests were developed by our own laboratory and have not been cleared or approved by the US Food and Drug Administration.?The FDA does not require this test to go through premarket FDA review.?These tests are used for clinical purposes. They should not be regarded as investigational or for research.?? This laboratory is certified under the Clinical Laboratory Improvement Amendments (CLIA) as qualified to perform high complexity clinical laboratory testing. This case has been personally reviewed and interpreted by the attending (teaching) pathologist. Final Diagnosis performed by Tami Maldonado MD. Electronically signed 11/01/2015 [facility] ([facility]) Other (qualifier value) CORNEAL PART / Unknown 10/27/2015 6:09 PM GRAPHICS PRODUCTION SPECIALIST 10/27/2015 6:09 PM GRAPHICS PRODUCTION SPECIALIST Narrative [facility] ([facility]) - 11/01/2015 10:52 AM GRAPHICS PRODUCTION SPECIALIST PROBLEM LIST: There is no problem list on file for this patient. PRE-OP DIAGNOSIS: ??CORNEAL EDNOTHELIAL DYSTROPHY OPERATIVE PROCEDURE / FINDINGS: ??Procedure(s) with comments: DMEK - 00022 with SF6 intraocular gas POST-OP DIAGNOSIS: * No post-op diagnosis entered * Collection Date->10/27/15 Collection Time->11:04 AM Specimen A->Cornea left Descemets tissue Francis Jurado MD LAB - PATHOLOGY/CYTO LOGY ORDERABLES Performing Organization Address City/State/[facility] Co de Phone Number U PATHOLOGY LAB ([facility]) Care Teams Parcel Post Weigher Relationship Specialty Start Date End Date Brendan Richardson MD PCP - General 10/14/17
--- OUTSIDE RECORDS SUMMARY | 2024-10-04 07:48 | XMS_ITS | Encounter Summary ---
Author Organization [facility] Address [address] [place] [address] Care Team Providers Care Equipment Service Technician Name Role Phone Brendan Richardson MD Primary Care Provider [phone] Encounter Details Date Type Department Care Team (Late st Contact Info) Description 04/08/2023 Lab Requisition [facility] - DermPath Lab [address] [place] [address] Peri Villalba, [address] [facility] [place] [address] Social History Tobacco Use Types Packs/Day Years [...] Priority Date/Time Associated Diagnosis Comments DERMATOPATHOLOGY Routine 04/08/2023 8:14 AM CDT documented in this encounter Results * DERMATOPATHOLOGY (04/08/2023 8:14 AM CDT) Case Report Dermatopathology Report ? Case: [id number] ? Authorizing Provider: ??Peri Villalba, DO ?? Collected: ? 04/08/2023 08:14 AM ? Ordering Location: ? [facility] DermPath Lab ? Received: ?04/08/2023 12:33 PM ? Pathologist: ? Sandee Fam MD ? Specimen: ?Skin, left medial thigh ? 3 12:14 PM T DERMATOPATHOLOGY LABORATORY Final Diagnosis Specimen A. SKIN, left medial thigh: DERMAL SCAR RESIDUAL SQUAMOUS CELL CARCINOMA NOT IDENTIFIED (L90.5) 3 12:14 PM T DERMATOPATHOLOGY LABORATORY Clinical History SCCIS. Check Margins. 3 12:14 PM T DERMATOPATHOLOGY LABORATORY Gross Description Specimen A: Received is one formalin filled container labeled with the patient's name and designated left medial thigh. The specimen consists of a non-oriented ellipse of skin measuring 66a73l2 mm. The epidermal surface is unremarkable. The margin is inked green. The 12 o'clock and 6 o'clock tips are submitted in cassette 1. The remainder of the ellipse is serially sectioned and submitted in cassette 2-3. Jar 0. 3 12:14 PM T DERMATOPATHOLOGY LABORATORY Microscopic Description Specimen A. SKIN, left medial thigh: There are fibroblasts and collagen bundles oriented parallel to the skin surface. There are elongated blood vessels, some of which are oriented perpendicular to the skin surface. No residual squamous cell carcinoma is identified. 3 12:14 PM CDT DERMATOPATHOLOGY LABORATORY Disclaimer An external and internal positive and negative controls are appropriate for the histochemical, immunohistochemical and immunofluorescence stain(s) in this case (if any), except where stated explicitly. The performance characteristics of the stain(s) cited in this report were developed and its performance characteristic determined by the Dermatopathology Laboratory at [facility], directed by Dr. Reinier Rod. These tests need not be, and therefore are not, approved by the [place] Food and Drug Administration. The tests are used for clinical purposes. Billing Codes Specimen Charges Stain Charges 96875 1 3 12:14 PM CDT DERMATOPATHOLOGY LABORATORY Embedded Images 3 12:14 PM CDT DERMATOPATHOLOGY LABORATORY Pathology/Cytolo gy TISSUE SPECIMEN FROM SKIN / Unknown 04/08/2023 8:14 AM CDT 04/08/2023 12:33 PM CDT Peri Villalba DO LAB - PATHOLOGY/C YTOLOGY ORDERABLES DERMATOPATHOLOGY LABORATORY [facility] - Department of Dermatology [facility] Medicine [address] [place] [address], [address] [phone] documented in this encounter Visit Diagnoses Not on filedocumented in this encounter Care Teams Equipment Service Technician Relationship Specialty Start Date End Date Brendan Richardson MD PCP - General 10/14/17 documented as of this encounter
--- OUTSIDE RECORDS SUMMARY | 2024-10-04 07:48 | XMS_ITS | Encounter Summary ---
Author Organization [facility] Address [address] [place] [address] Care Team Providers Care Owner Operator Tanker Truck Driver Name Role Phone Unavailable Primary Care Provider Unavailabl e Encounter Details Date Type Department Care Team (Late st Contact Info) Description 09/19/2020 Lab Requisition [facility] Department of Public Health Community Testing [facility] [address] [place] [address] [address], [place] [address] [place] [address] Social History Tobacco Use Types Packs/Day Years Used Date Smoking Tobacco: Never Assessed Comments Unknown Sex and Gender Information Value Date Recorded Sex Assigned at Not on file Legal Sex Female 10:31 AM WASH TANK TENDER Gender Identity Not on file Sexual Orientation Not on file documented as of this encounter Plan of Treatment Not on file documented as of this encounter Procedures Procedure Name Priority Date/Time Associated Diagnosis Comments SARS-COV-2 PCR [facility] ONLY Routine 09/19/2020 10:48 AM WASH TANK TENDER documented in this encounter Visit Diagnoses Not on filedocumented in this encounter
--- OUTSIDE RECORDS SUMMARY | 2024-10-04 07:48 | XMS_ITS | Encounter Summary ---
Author Organization [facility] Address [address] [place] [address] Care Team Providers Care Machine Striper Name Role Phone Brendan Richardson MD Primary Care Provider [phone] Reason for Visit * Reason Onset Date Comments Reschedule 02/14/2022 Encounter Details Date Type Department Care Team (Late st Contact Info) Description 02/14/2022 Telephone [facility] Pulmonology [address] [facility] [address] [place] [address] Gretel Zepeda MA Reschedule Social [...] on file Legal Sex Female 11:17 AM MULTIMEDIA INSTRUCTIONAL DESIGNER Gender Identity Not on file Sexual Orientation Not on file documented as of this encounter Miscellaneous Notes * Telephone Encounter - Gretel Zepeda MA - 02/14/2022 3:59 PM CDT Patient is an [facility] patient. Called patient to reschedule upcoming appointment April 23, 2022, either in [place] with [facility] or in [place] with [facility]. Left voicemail with our office number forpatient to return call. documented in this encounter Plan of Treatment Not on file documented as of this encounter Visit Diagnoses Not on filedocumented in this encounter Care Teams Machine Striper Relationship Specialty Start Date End Date Brendan Richardson MD [address] [place] [id number] PCP - General Family Medicine 12/26/21 documented as of this encounter
--- OUTSIDE RECORDS SUMMARY | 2024-10-04 20:13 | XMS_ITS | Clinical Summary ---
Author Organization [facility] Address [address] [place] [address] Care Team Providers Care Port Traffic Manager Name Role Phone Brendan Richardson MD Primary Care Provider [phone] Source Comments [facility],non-owned Affiliates and Associated Physician Practices is amultiple site organization consisting of ambulatory clinics and hospital sitesin [place], [place], [place] and [place]. This disclosure is being madepursuant to the Care Everywhere program and may not contain all information available regarding this patient. Last updated 18.[facility] Allergies Active Allergy Reactions Criticality Noted Date [...] age to complete this topic Care Teams Port Traffic Manager Relationship Specialty Start Date End Date Brendan Richardson MD PCP - General 10/14/17
--- OUTSIDE RECORDS SUMMARY | 2024-10-04 20:13 | XMS_ITS | Patient Health Summary ---
Author Organization [facility] Address [address] [place] [place] [address] Care Team Providers Care Cognos Tm1 Developer Name Role Phone Brendan Richardson MD Primary Care Provider [phone] Note from [facility],non-owned Affiliates and Associated Physician Practices is amultiple site organization consisting of ambulatory clinics and hospital sitesin [place], [place], [place] and [place]. This disclosure is being madepursuant to the Care Everywhere program and may not contain all information available regarding this patient. Last updated 18.[facility] Allergies * Alendronic Acid(Other) -Low Criticality * [...] included. Case Report Dermatopathology Report ? Case: [id number] ? Authorizing Provider: ??Peri Villalba, ?? Collected: ? 04/22/2023 08:19 AM ? [facility] ? [facility] ? Received: ?04/22/2023 [...] a shave biopsy measuring 4x13x1, 4x8x1, and 00x49b4 mm. Jar 0+. 3 4:20 PM CDT [...] characteristic determined by the Dermatopathology Laboratory at [facility], directed by Dr. Reinier Rod. These tests need not be, and therefore are not, approved by the [place] Food and Drug Administration. The tests are used for clinical purposes. Billing Codes Specimen Charges Stain Charges 57479 1 3 4:20 PM CDT DERMATOPATHOLOGY LABORATORY Embedded Images 3 4:20 PM CDT DERMATOPATHOLOGY LABORATORY Pathology/Cytolo gy TISSUE SPECIMEN FROM SKIN / Unknown 04/22/2023 8:19 AM CDT 04/22/2023 2:10 PM CDT Peri Villalba DO LAB - PATHOLOGY/C YTOLOGY ORDERABLES Performing Organization Address [facility]/State/ZIP Co de Phone Number DERMATOPATHOLOGY LABORATORY [facility] - Department of Dermatology [facility] Medicine [address] [place] [address], [address] Floor [address] [phone] * DERMATOPATH TECHNICAL REPORT (06/23/2018 12:00 AM CDT) Case Report Dermatopathology Report ? Case: [id number] ? Authorizing Provider: ??Peri Villalba DO ? Collected: ? 06/23/2018 12:00 AM ? Pathologist: ? Dorothy Mancini MD ? Received: ?06/25/2018 06:12 AM ? Specimens: ?? A) - Skin, left anterior lower leg ? B) - Skin, mid back ? 11:49 AM [facility] DERMATOPATHOLOGY LABORATORY Addendum 1 At the request of the diagnosing physician, the technical component for MART-1/Melan A on Specimen B was performed by [facility] Dermatopathology Laboratory. 11:49 AM [facility] DERMATOPATHOLOGY LABORATORY Addendum electronically signed by Dorothy Mancini MD on 06/27/2018 at 11:49 AM Clinical History A: Poro vs BCC vs SCCIS vs LPLK. Irreg color. B: Lentigo vs nevus R/O atypia. Irreg color. 11:49 AM [facility] DERMATOPATHOLOGY LABORATORY Gross Description Specimen A: Received is one formalin filled container labeled with the patient's name and designated left anterior lower leg. The specimen consists of a shave measuring [id number]. Jar 0. Specimen B: Received is one formalin filled container labeled with the patient's name and designated mid back. The specimen consists of a shave measuring 7b4i9oi. Jar 0. [facility] Dermatopathology Laboratory performed the technical component only. 11:49 AM [facility] DERMATOPATHOLOGY LABORATORY Embedded Images 11:49 AM [facility] DERMATOPATHOLOGY LABORATORY DISCLAIMER An external and internal positive and negative controls are appropriate for the histochemical, immunohistochemical and immunofluorescence stain(s) in this case (if any), except where stated explicitly. The performance characteristics of the stain(s) cited in this report were developed and its performance characteristic determined by the Dermatopathology Laboratory at [facility]. These tests need not be, and therefore [...] LAB - PATHOLOGY/C YTOLOGY ORDERABLES DERMATOPATHOLOGY LABORATORY [facility] - Department of Dermatology [address] [place] [address] * CULTURE ANAEROBE (04/26/2016 2:40 PM CDT) Culture Anaerobic No Growth at 1 week [facility] Cornea 04/26/2016 2:40 PM CDT 04/26/2016 6:18 PM CDT Narrative [facility] - 05/03/2016 11:57 AM CDT Donor ring Specimen Type->Cornea This culture is aerobic, not anaerobic. Francis Jurado MD LAB - MICROBIOLOGY O RDERABLES Performing Organization Address [facility]/ZIP Co de Phone Number [facility] [address] [place] [address], [facility] [phone] * CULTURE FUNGUS OTHER+FUNGUS SMEAR (04/19/2016 9:46 AM CDT) Only the most recent of2 resultswithin the time period is included. Culture Fungus-Other No Growth Fungi. [facility] Fungus Smear [facility] Comment:no smear - donor rin g Cornea CORNEAL PART / Unknown 04/19/2016 9:46 AM CDT 04/19/2016 7:47 PM CDT Narrative [facility] - 05/22/2016 3:07 PM CDT DONOR CORNEAL RING FOR FUNGAL CULTURE. Specimen Type->Cornea Francis Jurado MD LAB - MICROBIOLOGY O RDERABLES [facility] [address] [phone] * PATHOLOGY TISSUE (10/27/2015 6:09 PM ASSEMBLER FLEXIBLE LEADS) Surgical Pathology Tissue CLINICAL HISTORY: Corneal endothelial dystrophy. OPERATIVE PROCEDURE: ?? DMEK, intraocular gas. FINAL DIAGNOSIS: EYE, LEFT, CORNEA, KERATOPLASTY: - ? DESCEMET'S MEMBRANE WITH ENDOTHELIAL CELLS GROSS DESCRIPTION: The specimen is received fixed in formalin in one container labeled with the patient's name, Zamzam Perea and left eye Descemet tissue , [...] some irregularities compatible with guttata. JL for BOBJ DEVELOPER/cz The performance characteristics of all immunohistochemical and indirect immunofluorescence stains (if any) cited in this report were determined by the Histopathology Laboratory of [facility].?? Some of these tests were developed by [...] by Tami Maldonado MD. Electronically signed 11/01/2015 [facility] PATHOLOGY LAB ([facility]) Other (qualifier value) CORNEAL PART / Unknown 10/27/2015 6:09 PM [employer] 10/27/2015 6:09 PM [employer] Narrative [facility] PATHOLOGY LAB ([facility]) - 11/01/2015 10:52 AM [employer] PROBLEM LIST: There is no problem list on file for this patient. 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
--- OUTSIDE RECORDS SUMMARY | 2024-10-04 20:13 | XMS_ITS | Encounter Summary ---
Author Organization [facility] Address [address] [facility] [place] [address] Care Team Providers Care Dinkey Engine Mechanic Name Role Phone Brendan Richardson MD Primary Care Provider [phone] Encounter Details Date Type Department Care Team (Late st Contact Info) Description 06/25/2018 Lab Requisition [facility] Care DermPath Lab [address] [facility] [place], [place] [phone] Peri Villalba, DO [address] [facility] [address]L [place] [address] Social History Tobacco Use Types Packs/Day Years [...] CDT) Case Report Dermatopathology Report ? Case: [id number] ? Authorizing Provider: ??Peri Villalba, ? Collected: [...] A on Specimen B was performed by [facility] Dermatopathology Laboratory. 11:49 AM CDT DERMATOPATHOLOGY LABORATORY [...] The specimen consists of a shave measuring [id number]. Jar 0. Specimen B: Received is one formalin filled container labeled with the patient's name and designated mid back. The specimen consists of a shave measuring 4n7a4vm. Jar 0. [facility] Dermatopathology Laboratory performed the technical component only. [...] characteristic determined by the Dermatopathology Laboratory at [facility]. These tests need not be, and therefore [...] LAB - PATHOLOGY/C YTOLOGY ORDERABLES DERMATOPATHOLOGY LABORATORY [facility] - Department of Dermatology [address] [place] [address] 5th Floor Lab [address] [phone] documented in this encounter Visit Diagnoses Not on filedocumented in this encounter Care Teams Dinkey Engine Mechanic Relationship Specialty Start Date End Date Brendan Richardson MD PCP - General 10/14/17 documented as of this encounter
--- OUTSIDE RECORDS SUMMARY | 2024-10-04 20:13 | XMS_ITS | Encounter Summary ---
Author Organization [facility] Health Address [address] [place] [address] Care Team Providers Care Special Services Supervisor Name Role Phone Brendan Richardson MD Primary Care Provider [phone] Encounter Details Date Type Department Care Team (Late st Contact Info) Description 10/27/2015 Anesthesia Historic Visit [facility] [address] [place] [address] Social History Tobacco Use Types [...] on filedocumented in this encounter Care Teams Special Services Supervisor Relationship Specialty Start Date End Date Brendan Richardson MD PCP - General 10/14/17 documented as of this encounter
--- OUTSIDE RECORDS SUMMARY | 2024-10-04 20:13 | XMS_ITS | Encounter Summary ---
Author Organization [facility] Address [address] [facility] [place] [address] Care Team Providers Care Learning Support Services Director Name Role Phone Brendan Richardson MD Primary Care Provider [phone] Encounter Details Date Type Department Care Team (Late st Contact Info) Description 04/08/2023 Lab Requisition [facility] - DermPath Lab [address] [facility] [place] [address] Peri Villalba, [address] [facility] [address] [place] [address] Social History Tobacco Use Types Packs/Day Years [...] CDT) Case Report Dermatopathology Report ? Case: [id number] ? Authorizing Provider: ??Peri Villalba, DO ?? Collected: ? 04/08/2023 08:14 AM ? Ordering Location: ? [facility] DermPath Lab ? Received: ?04/08/2023 12:33 PM [...] of a non-oriented ellipse of skin measuring 75b57p4 mm. The epidermal surface is unremarkable. The [...] purposes. Billing Codes Specimen Charges Stain Charges 73943 1 3 12:14 PM CDT DERMATOPATHOLOGY LABORATORY Embedded Images 3 12:14 PM CDT DERMATOPATHOLOGY LABORATORY Pathology/Cytolo gy TISSUE SPECIMEN FROM SKIN / Unknown 04/08/2023 8:14 AM CDT 04/08/2023 12:33 PM CDT Peri Villalba DO LAB - PATHOLOGY/C YTOLOGY ORDERABLES DERMATOPATHOLOGY LABORATORY [facility] - Department of Dermatology [facility] [address] [place] [address], [address] [phone] documented in this encounter Visit Diagnoses Not on filedocumented in this encounter Care Teams Learning Support Services Director Relationship Specialty Start Date End Date Brendan Richardson MD PCP - General 10/14/17 documented as of this encounter
--- OUTSIDE RECORDS SUMMARY | 2024-10-04 20:13 | XMS_ITS | Encounter Summary ---
Author Organization [facility] Health Address [address] [facility] [place] [address] Care Team Providers Care Manager Mountain Name Role Phone Brendan Richardson MD Primary Care Provider [phone] Encounter Details Date Type Department Care Team (Late st Contact Info) Description 04/19/2016 Anesthesia Historic Visit [facility] [address] [place] [address] Social History Tobacco Use Types [...] on filedocumented in this encounter Care Teams Manager Mountain Relationship Specialty Start Date End Date Brendan Richardson MD PCP - General 10/14/17 documented as of this encounter
--- OUTSIDE RECORDS SUMMARY | 2024-10-04 20:13 | XMS_ITS | Referral Summary ---
Author Organization [facility] Address [address] [place] [address] Care Team Providers Care Bridal Stylist Sales Consultant Name Role Phone Brendan Richardson MD Primary Care Provider [phone] Source Comments [facility],non-owned Affiliates and Associated Physician Practices is amultiple site organization consisting of ambulatory clinics and hospital sitesin [place], [place], [place] and [place]. This disclosure is being madepursuant to the Care Everywhere program and may not contain all information available regarding this patient. Last updated 18.[facility] Allergies Active Allergy Reactions Criticality Noted Date [...] of Treatment Not on file Care Teams Bridal Stylist Sales Consultant Relationship Specialty Start Date End Date Brendan Richardson MD PCP - General 10/14/17
--- OUTSIDE RECORDS SUMMARY | 2024-10-04 20:13 | XMS_ITS | Encounter Summary ---
Author Organization [facility] Address [address] [place] [address] Care Team Providers Care Hardwood Finisher Name Role Phone Unavailable Primary Care Provider Unavailabl e Encounter Details Date Type Department Care Team (Late st Contact Info) Description 10/16/2021 12:00 PM DATABASE MODELER Rapid Evaluation [place] [facility] Community Testing [facility] [address] [place] [address] Social History Tobacco Use Types Packs/Day Years Used Date Smoking Tobacco: Never Assessed Comments Unknown Sex and Gender Information Value Date Recorded Sex Assigned at Not on file Legal Sex Female 10:31 AM DATABASE MODELER Gender Identity Not on file Sexual Orientation Not on file documented as of this encounter Plan of Treatment Not on file documented as of this encounter Visit Diagnoses Not on filedocumented in this encounter
--- OUTSIDE RECORDS SUMMARY | 2024-10-04 20:13 | XMS_ITS | Encounter Summary ---
Author Organization [facility] Address [address] [place] [address] Care Team Providers Care Online Marketing Specialist Name Role Phone Unavailable Primary Care Provider Unavailabl e Encounter Details Date Type Department Care Team (Late st Contact Info) Description 09/19/2020 Lab Requisition [facility] Community Testing [facility] [address] [place] [address] Miles, [place] [address] [place] [address] Social History Tobacco Use Types Packs/Day Years Used Date Smoking Tobacco: Never Assessed Comments Unknown Sex and Gender Information Value Date Recorded Sex Assigned at Not on file Legal Sex Female 10:31 AM RCIS Gender Identity Not on file Sexual Orientation Not on file documented as of this encounter Plan of Treatment Not on file documented as of this encounter Procedures Procedure Name Priority Date/Time Associated Diagnosis Comments SARS-COV-2 PCR [facility] ONLY Routine 09/19/2020 10:48 AM RCIS documented in this encounter Visit Diagnoses Not on filedocumented in this encounter
--- OUTSIDE RECORDS SUMMARY | 2024-10-04 20:13 | XMS_ITS | Encounter Summary ---
Author Organization [facility] Address [address] [place] [address] Care Team Providers Care Accredited Pharmacy Technician Name Role Phone Unavailable Primary Care Provider Unavailabl e Encounter Details Date Type Department Care Team (Late st Contact Info) Description 10/16/2021 Lab Requisition [facility] Community Testing [facility] [address] [place] [address] Bar Whatley MD [address] [place] [address] [address] [place], [place] [phone] Social History Tobacco Use Types Packs/Day Years Used Date Smoking Tobacco: Never Assessed Comments Unknown Sex and Gender Information Value Date Recorded Sex Assigned at Not on file Legal Sex Female 10:31 AM CUSTOM SKI MAKER Gender Identity Not on file Sexual Orientation Not on file documented as of this encounter Plan of Treatment Not on file documented as of this encounter Procedures Procedure Name Priority Date/Time Associated Diagnosis Comments SARS-COV-2 PCR [facility] ONLY Routine 10/16/2021 12:11 PM CUSTOM SKI MAKER documented in this encounter Visit Diagnoses Not on filedocumented in this encounter Additional Health Concerns Infection Onset Date Last Indicated Resolved Time COVID - 19 Confirmed 10/16/2021 10/16/2021 022 12:16 AM CUSTOM SKI MAKER documented as of this encounter
--- OUTSIDE RECORDS SUMMARY | 2024-10-04 20:13 | XMS_ITS | Encounter Summary ---
Author Organization [facility] Address [address] [place] [address] Care Team Providers Care Family Consumer Science Teacher Name Role Phone Brendan Richardson MD Primary Care Provider Encounter Details Date Type Department Care Team (Late st Contact Info) Description 04/22/2023 Lab Requisition [facility] - DermPath Lab [address] [facility] [place] [address] Peri Villalba, [address] [facility] 3 [place] [address] Social History Tobacco Use Types Packs/Day Years [...] CDT) Case Report Dermatopathology Report ? Case: [id number] ? Authorizing Provider: ??Peri Villalba, DO ?? Collected: ? 04/22/2023 08:19 AM ? Ordering Location: ? [facility] DermPath Lab ? Received: ?04/22/2023 02:10 [...] a shave biopsy measuring 4x13x1, 4x8x1, and 56a52e8 mm. Jar 0+. 3 4:20 PM CDT [...] characteristic determined by the Dermatopathology Laboratory at [facility], directed by Dr. Reinier Rod. These tests need not be, and therefore are not, approved by the [place] Food and Drug Administration. The tests are used for clinical purposes. Billing Codes Specimen Charges Stain Charges 76238 1 3 4:20 PM CDT DERMATOPATHOLOGY LABORATORY Embedded Images 3 4:20 PM CDT DERMATOPATHOLOGY LABORATORY Pathology/Cytolo gy TISSUE SPECIMEN FROM SKIN / Unknown 04/22/2023 8:19 AM CDT 04/22/2023 2:10 PM CDT Peri Villalba DO LAB - PATHOLOGY/C YTOLOGY ORDERABLES DERMATOPATHOLOGY LABORATORY [facility] - Department of Dermatology [address], [address] [phone] documented in this encounter Visit Diagnoses Not on filedocumented in this encounter Care Teams Family Consumer Science Teacher Relationship Specialty Start Date End Date Brendan Richardson MD PCP - General 10/14/17 documented as of this encounter
--- OUTSIDE RECORDS SUMMARY | 2024-10-04 20:13 | XMS_ITS | Clinical Summary ---
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
--- OUTSIDE RECORDS SUMMARY | 2024-10-04 20:13 | XMS_ITS | Encounter Summary ---
Author Organization [facility] Health Address [address] [facility] [place] [address] Care Team Providers Care Evening Sitter Name Role Phone Brendan Richardson MD Primary Care Provider [phone] Encounter Details Date Type Department Care Team (Late st Contact Info) Description 04/26/2016 Anesthesia Historic Visit [facility] [address] [place] [address] Social History Tobacco Use Types [...] on filedocumented in this encounter Care Teams Evening Sitter Relationship Specialty Start Date End Date Brendan Richardson MD PCP - General 10/14/17 documented as of this encounter
--- OUTSIDE RECORDS SUMMARY | 2024-10-04 20:13 | XMS_ITS | Encounter Summary ---
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
== END 2024-09-29 17:05 ==
LOC: ANHED 13:22 → ANH3MEDSUR 09-28 07:19
PROVIDERS: Nurse Practitioner Gerontology; Admitting Provider Internal Medicine; Emergency Provider Emergency Medicine; PCP Family Medicine; Visit Provider Student in an Organized Health Care Education/Training Program
DX: J96.01 Acute respiratory failure with hypoxia (principal); J44.0 Chronic obstructive pulmonary disease with (acute) lower respiratory infection; J18.9 Pneumonia, unspecified organism; J44.1 Chronic obstructive pulmonary disease with (acute) exacerbation; J43.9 Emphysema, unspecified; G31.83 Neurocognitive disorder with Lewy bodies; F02.A2 Dementia in other diseases classified elsewhere, mild, with psychotic disturbance; E78.2 Mixed hyperlipidemia; R73.9 Hyperglycemia, unspecified; R79.1 Abnormal coagulation profile; M81.0 Age-related osteoporosis without current pathological fracture; H81.10 Benign paroxysmal vertigo, unspecified ear; I10 Essential (primary) hypertension; Z20.822 Contact with and (suspected) exposure to COVID-19; Z79.51 Long term (current) use of inhaled steroids; Z79.899 Other long term (current) drug therapy; Z87.891 Personal history of nicotine dependence; Z87.01 Personal history of pneumonia (recurrent); Z99.81 Dependence on supplemental oxygen
CPT/HCPCS: 36415; 36600; 71045; 71250; 71275; 80053; 81001; 82803; 82805; 82948; 83036; 83605; 83690; 83735; 83880; 84100; 84484; 85018; 85025; 85055; 85380; 85610; 85730; 87040; 87637; 93005; 94640; 96365; 96366; 96367; 96372; 96375; 96376; 97161; 97165; 97530; 97535; 99199; 99285; A9270; G0378; J0456; J0696; J1650; J1815; J2919; J3475; J7512; Q9967

== ENCOUNTER 2025-03-10 12:01 | Outpatient (CLI) | payer MEDICARE, SELFPAY ==
--- NOTE | ~2025-03-10 | XR_ITS ---
AP and lateral views of the right tibia/fibula Clinical History: Pain Findings: No acute fracture or dislocation is seen. Osseous alignment is anatomic. Joint spaces are p reserved without significant erosive or degenerative change. There is mild diffuse subcutaneous soft tissue edema. Impression: Mild diffuse subcutaneous soft tissue edema. Reviewed, dictated and finalized at [facility]. Impression: Mild diffuse subcutaneous soft tissue edema.
--- NOTE | ~2025-03-10 | XR_ITS ---
AP and lateral views of the right femur Clinical History: Pain Findings: No acute fracture or dislocation is seen. Osseous alignment is anatomic. Visualized joint s paces are grossly preserved. Soft tissues are unremarkable. Impression: Unremarkable right femoral radiographs. Reviewed, dictated and finalized at location [facility]. Impression: Unremarkable right femoral radiographs.
== END 2025-03-10 12:02 | disposition home or self-care (01) ==
LOC: MICIMG 12:03
PROVIDERS: PCP Family Medicine; Visit Provider Family Medicine
DX: M79.604 Pain in right leg (principal); R60.0 Localized edema
CPT/HCPCS: 73552; 73590